=== PATIENT | male | born 1965 | race Caucasian/White ===

== ENCOUNTER 2023-04-22 09:14 | Day surgery (SDC) | payer OTHER, SELFPAY ==
[2023-04-22 09:19] VITALS: BP 190/110; PULSE 102; RESP 18; TEMP 36.6; O2SAT 96; BMI 39.1
--- NOTE | 2023-04-22 09:26 | XR_ITS ---
The [address] [address] Patient Name: KEYON JAMIL I MRN: [id number] date: 1965 Sex: M Assigned Patient Location: ER Current Patient Location: ED.MAIN Accession/Order Number: [id number] Exam Date: 04/22/2023 09:40 Report Date: 04/22/2023 10:00 At the request of: BLAYNE GATES Procedure: XR hand LT min 3V PROCEDURE: XR hand LT min 3V HISTORY: index amputation COMPARISON: None. FINDINGS: BONES:Fragmentation of the distal phalanx of the second digit and partial loss of the distal end of the middle phalanx. Numerous bone fragments scattered within remainder soft tissues. SOFT TISSUES:Partial amputation of soft tissue and bone involving tip of second digit. EFFUSION:None visible. OTHER: Negative. XR/XR hand LT min 3V IMPRESSION: 1. Partial amputation of distal end of second digits involving soft tissues, distal phalanx, and distal end of the middle phalanx. Electronically authenticated by: DEANGELO LOU Date: 04/22/2023 10:00
--- NOTE | 2023-04-22 09:45 | ED.UPPEXIN1 ---
HPI - Extremity Injury (Upper) General Chief Complaint: Extremity Injury, Upper Stated Complaint: UPPER EXTREMITY INJURY LEFT HAND Time Seen by Provider: 04/22/23 09:26 Mode of arrival: walk-in Limitations: no limitations History of Present Illness HPI narrative: The patient brought to us for a left hand injury that he sustained while using an electric table saw the patient mentioned that the table saw injury to his left index finger, he have no previous medical history but he was planned to have a physical in the next couple days The patient does not remember the last time he had a tetanus booster and his index finger shows an obvious injury Related Data Allergies Allergy/AdvReac Type Severity Reaction Status Date / Time No Known Drug Allergies Allergy Verified 04/22/23 09:18 Review of Systems ROS Status of ROS 10 or more systems reviewed and unremarkable except as noted in history and below Exam Narrative Exam Narrative: Nurses notes and vital signs reviewed and patient is not hypoxic. General: Well-appearing and in no apparent distress. Skin: Warm, dry, no pallor noted. No rash. Head: Normocephalic, atraumatic. Neck: Supple, non-tender. Eye: Pupils are equal, round and EOMI. No scleral icterus. Ears, Nose, Mouth, and Throat: TM are clear, no nasal mucosal hypertrophy. Oral mucosa is moist, no posterior oropharynx erythema, uvula is mid-line Cardiovascular: Regular Rate and Rhythm without murmur, gallop or rub. Respiratory: No accessory muscle use or respiratory distress. Lungs are clear to auscultation, no wheezing, rales or rhonchi Chest Wall: no tenderness Back: No midline thoracic or lumbar vertebral tenderness. No CVA tenderness Musculoskeletal: Left hand examination the patient have a abrasion like ulcer at the mid left index finger dorsum at mid phalanx, not deep no underlying structures exposure The patient have the index finger injury that is more extensive with the just distal to the mid middle phalanx the patient have a the area of the ulnar aspect of the index finger totally exposed with underlying structures the bone and the tendons damaged with the injury also half of the nailbed is crushed, the wound is not clean, no foreign body ,the pt has longitudinal amputation of the distal phalanx , bleeding controlled GI: Abdomen is soft, non-distended. Normal bowel sounds. No masses appreciated. No tenderness to palpation. No rebound, guarding, or rigidity noted. Neurological: A&O x4. No cranial nerve dysfunction observed. No truncal ataxia. Moves all extremities. Sensation intact. Psychiatric: Cooperative and interactive. Normal mood and affect. Constitutional Vital Signs, click to edit/add: Last Vital Signs Temp 97.9 F 04/22/23 09:19 Pulse 102 H 04/22/23 09:19 Resp 18 04/22/23 09:19 BP 190/110 H 04/22/23 09:19 Pulse Ox 96 04/22/23 09:19 O2 Del Method Room Air 04/22/23 09:19 Course Vital Signs Vital signs: Vital Signs Temperature 97.9 F 04/22/23 09:19 Pulse Rate 102 H 04/22/23 09:19 Respiratory Rate 18 04/22/23 09:19 Blood Pressure 190/110 H 04/22/23 09:19 Pulse Oximetry 96 04/22/23 09:19 Oxygen Delivery Method Room Air 04/22/23 09:19 Temperature 97.9 F 04/22/23 09:19 Pulse Rate 102 H 04/22/23 09:19 Respiratory Rate 18 04/22/23 09:19 Blood Pressure 190/110 H 04/22/23 09:19 Pulse Oximetry 96 04/22/23 09:19 Oxygen Delivery Method Room Air 04/22/23 09:19 MDM - Extremity Injury (Upper) MDM Narrative Medical decision making narrative: The patient have an IV in place IV medication for pain management morphine and Toradol as well as tetanus booster and Ancef 1 dose The patient had a nerve block with using 1% lidocaine and after that exploring the wound and the the case was discussed with the orthopedic surgeon Dr. Rodriguez The patient is planned to go to surgery he will be kept n.p.o. and pain management for the time being The patient EKG showing sinus rhythm with a heart rate of [address] elevation depression CBC and chemistry showed no acute pathology as well and the patient was noted to have elevated blood pressure in the ER and it could be right now is secondary to pain or chronic hypertension although the patient does not take any medication and he have no acute kidney injury at the moment Lab Data Labs: Lab Results 04/22/23 Range/Units 10:53 WBC 7.8 (4.0-11.0) 10^3/uL RBC 5.29 (4.70-6.10) 10^6/uL Hgb 15.2 (14.0-18.0) g/dL Hct 46.7 (42.0-54.0) % MCV 88.3 (80.0-94.0) fL MCH 28.7 (25.9-34.0) pg MCHC 32.5 (29.9-35.2) g/dL RDW 13.2 (11.0-15.0) % Plt Count 215 (150-450) 10^3/uL MPV 11.1 (9.5-13.5) fL Neut % (Auto) 76.4 H (43.0-75.0) % Lymph % (Auto) 15.5 L (20.5-60.0) % [place] % (Auto) 6.2 (1.7-12.0) % Eos % (Auto) 1.2 (0.9-7.0) % Baso % (Auto) 0.3 (0.2-2.0) % Neut # (Auto) 5.9 (1.4-6.5) 10^3/uL Lymph # (Auto) 1.2 (1.2-3.8) 10^3/uL [place] # (Auto) 0.5 (0.3-0.8) 10^3/uL Eos # (Auto) 0.1 (0.0-0.7) 10^3/uL Baso # (Auto) 0.0 (0.0-0.1) 10^3/uL Abs Immat Gran (auto) 0.03 (0.00-0.03) 10^3/uL Imm/Tot Granulo (auto) 0.4 (0.0-0.5) % Sodium 140 (136-145) mmol/L Potassium 3.9 (3.5-5.1) mmol/L Chloride 103 (98-107) mmol/L Carbon Dioxide 29.8 (21.0-32.0) mmol/L Anion Gap 11.1 BUN 18.0 (7.0-18.0) mg/dL Creatinine 0.84 (0.70-1.30) mg/dL Est GFR ( Amer) >60 (>=60) Est GFR (Non-Af Amer) >60 (>=60) BUN/Creatinine Ratio 21.4 Glucose 122 H (74-106) mg/dL Calcium 8.7 (8.5-10.1) mg/dL Total Bilirubin 0.4 (0.2-1.0) mg/dL AST 15 (15-37) U/L ALT 28 (16-63) U/L Alkaline Phosphatase 69 (46-116) U/L Total Protein 6.9 (6.4-8.2) g/dL Albumin 3.7 (3.4-5.0) g/dL Globulin 3.2 g/dL Albumin/Globulin Ratio 1.2 Discharge Plan Discharge Chief Complaint: Extremity Injury, Upper Clinical Impression: Amputation of index finger Patient Disposition: Admitted as Observation Time of Disposition Decision: 11:15 Condition: Good Discharge Date/Time: 04/22/23 10:19
[2023-04-22] MEDS: ADACEL DIPH,PERTUSS(ACELL),TET VAC/PF 0.5 ML ADULT SYRINGE IM (09:50)
[2023-04-22] MEDS: KETOROLAC TROMETHAMINE 30 MG/ML VIAL 15 MG IVP ×2 (09:51→11:25)
[2023-04-22] MEDS: LIDOCAINE HCL 1% PF 20 MG/2 ML VIAL INJ (09:52)
[2023-04-22] MEDS: MORPHINE SULFATE 4 MG/ML VIAL IV ×2 (09:52→11:25)
[2023-04-22] MEDS: CEFAZOLIN SODIUM/DEXTROSE,ISO 2 GM/50 ML PIGGYBACK IV (09:52)
[2023-04-22] MEDS: ONDANSETRON PF 4 MG/2 ML VIAL IV (09:53)
[2023-04-22 11:04] LABS: Basophils Percent Auto 0.3 % (0.2-2.0); Eosinophils Absolute Auto 0.1 10^3/uL (0.0-0.7); Eosinophils Percent Auto 1.2 % (0.9-7.0); Hematocrit 46.7 % (42.0-54.0); Hemoglobin 15.2 g/dL (14.0-18.0); Immature Granulocytes Abs Auto 0.03 10^3/uL (0.00-0.03); Immature Granulocytes Pct Auto 0.4 % (0.0-0.5); Lymphocytes Absolute Auto 1.2 10^3/uL (1.2-3.8); Lymphocytes Percent Auto 15.5 % (20.5-60.0); Mean Corpuscular HGB Conc 32.5 g/dL (29.9-35.2); Mean Corpuscular Hemoglobin 28.7 pg (25.9-34.0); Mean Corpuscular Volume 88.3 fL (80.0-94.0); Mean Platelet Volume 11.1 fL (9.5-13.5); Monocytes Absolute Auto 0.5 10^3/uL (0.3-0.8); Monocytes Percent Auto 6.2 % (1.7-12.0); Neutrophils Absolute Auto 5.9 10^3/uL (1.4-6.5); Neutrophils Percent Auto 76.4 % (43.0-75.0); Platelet Count 215 10^3/uL (150-450); Red Blood Count 5.29 10^6/uL (4.70-6.10); Red Cell Distribution Width 13.2 % (11.0-15.0); White Blood Count 7.8 10^3/uL (4.0-11.0)
[2023-04-22 11:22] LABS: Alanine Aminotransferase 28 U/L (16-63); Albumin Globulin Ratio 1.2; Albumin Level 3.7 g/dL (3.4-5.0); Alkaline Phosphatase 69 U/L (46-116); Anion Gap 11.1; Aspartate Amino Transferase 15 U/L (15-37); BUN Creatinine Ratio 21.4; Bilirubin Total 0.4 mg/dL (0.2-1.0); Calcium 8.7 mg/dL (8.5-10.1); Carbon Dioxide 29.8 mmol/L (21.0-32.0); Chloride 103 mmol/L (98-107); Estimated GFR (African America >60 (>=60); Estimated GFR (Non-African Ame >60 (>=60); Globulin 3.2 g/dL; Glucose 122 mg/dL (74-106); Potassium 3.9 mmol/L (3.5-5.1); Sodium 140 mmol/L (136-145); Total Protein 6.9 g/dL (6.4-8.2)
--- NOTE | 2023-04-22 11:35 | PC.NURSE ---
pt educated on npo status and ekg completed pt dressing to left hand reinforced
--- NOTE | 2023-04-22 11:58 | PC.NURSE ---
to OR via cart
--- NOTE | 2023-04-22 16:12 | ECG_ITS ---
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
== END 2023-04-22 11:46 ==
LOC: ER 09:50 → SURGOUT 11:47
PROVIDERS: Emergency Provider Emergency Medicine; Visit Provider Orthopaedic Surgery
DX: Z53.9 Procedure and treatment not carried out, unspecified reason (principal)
CPT/HCPCS: 36415; 73130; 80053; 85025; 90471; 90715; 93005; 96374; 96375; 96376; 99285; J2704

== ENCOUNTER 2023-04-22 12:14 | Day surgery (SDC) | payer OTHER, SELFPAY ==
[2023-04-22] VITALS (11 sets, daily range): BP systolic 134–163; BP diastolic 97–118; PULSE 96–117; RESP 0–24; TEMP 36.2; O2SAT 90–96
[2023-04-22] MEDS: BUPIVACAINE HCL 0.5% PF 50 MG/10 ML VIAL INJ (15:31)
[2023-04-22] MEDS: LACTATED RINGER'S SOLUTION 1,000 ML 50 ML IV (15:35)
--- NOTE | 2023-04-22 16:41 | PC.NURSE ---
DR. PEACE AWARE OF BP. NO NEW ORDERS RECEIVED.
--- NOTE | 2023-04-22 17:30 | PM.ORPRC ---
Procedure Note Date of procedure: 04/22/23 Pre-op diagnosis: Left index finger tip amputation Post-op diagnosis: same as pre-op Procedure: Revision amputation left index finger After informed consent was obtained the patient was brought to the operating room where general anesthetic was administered. The left arm was prepped and draped in the usual sterile fashion. 5 mL 1% lidocaine plain mixed with 5 mL half percent Marcaine plain was used for digital block of the left index finger. Finger tourniquet was placed. Wound was copiously irrigated and there was no gross contamination. The wound was explored and there was a small portion of the distal phalanx was retained. This was a thin sharp fragment and this was removed with a 15 blade. The had of the middle phalanx was also damaged by the saw and this was smoothed out with a rongeur and rasp. The skin flaps were revised using a 15 blade for fishmouth closure. The skin and soft tissue were then closed over the middle phalanx with 3-0 nylon sutures in a room interrupted simple fashion. Finger turnicot was removed. Finger was dressed. Patient was awakened and brought to the recovery room in stable condition. There were no intraoperative or immediate postoperative complications. Anesthesia: AZALIA Surgeon: Tino Rodriguez Estimated blood loss (mL): 10 Pathology: none sent Condition: stable Disposition: PACU
== END 2023-04-22 17:10 | disposition home or self-care (01) ==
PROVIDERS: Visit Provider Orthopaedic Surgery
PROC: (CPT 26236; principal; 2023-04-22 13:00)
DX: S68.121A Partial traumatic metacarpophalangeal amputation of left index finger, initial encounter (principal); W27.0XXA Contact with workbench tool, initial encounter; Z23 Encounter for immunization
CPT/HCPCS: 26236; 36415; 73130; 80053; 85025; 90471; 90715; 93005; 96374; 96375; 96376; 99285; J2704

== ENCOUNTER 2023-06-07 08:46 | Outpatient (OUT) | payer OTHER, SELFPAY ==
[2023-06-07 10:11] LABS: BUN Creatinine Ratio 26.6; Calcium 9.1 mg/dL (8.5-10.1); Chloride 102 mmol/L (98-107); Estimated GFR (African America >60 (>=60); Estimated GFR (Non-African Ame >60 (>=60); Glucose 98 mg/dL (74-106); Sodium 140 mmol/L (136-145)
[2023-06-07 10:35] LABS: Prostate Specific Antigen Scrn 3.09 ng/mL (<=4.00)
== END 2023-06-07 08:47 | disposition home or self-care (01) ==
LOC: LAB 08:47
PROVIDERS: PCP Nurse Practitioner; Visit Provider Nurse Practitioner
DX: I10 Essential (primary) hypertension (principal); N40.0 Benign prostatic hyperplasia without lower urinary tract symptoms; Z12.5 Encounter for screening for malignant neoplasm of prostate
CPT/HCPCS: 36415; 80048; G0103

== ENCOUNTER 2024-08-18 16:46 | Outpatient (OUT) | payer OTHER, SELFPAY ==
--- NOTE | 2024-08-18 | XR_ITS ---
The [place] [id number] Patient Name: KEYON JAMIL I MRN: [id number] date: 1965 Sex: M Assigned Patient Location: [employer] Current Patient Location: Accession/Order Number: [id number] Exam Date: 08/18/2024 17:02 Report Date: 08/19/2024 13:50 At the request of: WINIFRED MEDEL Procedure: XR chest 2V EXAMINATION: XR chest 2V HISTORY: Subacute cough R05.2 COMPARISON: No relevant comparison available. FINDINGS: LUNGS: Slight wall thickening of a few central bronchi. No peripheral infiltrates. VASCULATURE: No increased pulmonary vasculature. PLEURA: No pneumothorax, effusion, or pleural thickening. CARDIAC: No cardiomegaly or cardiac silhouette abnormality. MEDIASTINUM: No visible mass or adenopathy. BONES: No fracture or visible bone lesion. OTHER: Negative. XR/XR chest 2V IMPRESSION: 1. Possible mild bronchiolitis. Electronically authenticated by: DEANGELO LOU Date: 08/19/2024 13:50
== END 2024-08-18 16:47 | disposition home or self-care (01) ==
LOC: RAD 16:48
PROVIDERS: PCP Nurse Practitioner; Visit Provider Nurse Practitioner
DX: R05.2 Subacute cough (principal)
CPT/HCPCS: 71046

== ENCOUNTER 2024-09-04 06:57 | Outpatient (OUT) | payer OTHER, SELFPAY ==
--- OUTSIDE RECORDS SUMMARY | 2024-09-04 07:00 | XMS_ITS | CCD ---
Author Organization [facility] Care Team Providers Care Mirror Inspector Name Role Phone July COMMUNICATIONS ADVISOR, Brenda Unavailable Chava Horne MD Primary Care Provider [phone] BRENDA MCDOWELL Attending Unavailable BRENDA MCDOWELL Attending Unavailable BRENDA MCDOWELL Attending Unavailable BRENDA MCDOWELL Attending Unavailable BRENDA MCDOWELL Attending Unavailable BRENDA MCDOWELL Attending Unavailable Medications Current Medications Medication Drug Class(es) Dates Sig (Normalized) Sig (Original) amLODIPine 10 mg oral tablet (12 sources) Dihydropyridine Calcium Channel Holli Start: 03-09-20 24 End: 09-09-19 25 take 1 tablet by mouth once daily amLODIPine (Norvasc) 10 MG tablet Indications: Essential (primary) hypertension (CMS/HCC) Take 1 tablet (10 mg) by mouth Daily 90 tablet 1 06/11/2024 2024 Active azithromycin 250 mg oral tablet (2 sources) Macrolide Antimicrobial Start: 08-17-20 24 azithromycin (Zithromax) 250 MG tablet Indications: Upper respiratory tract infection, unspecified type 2 pills day #1, then 1 pill day #2-#5 6 tablet 08/17/2024 Active benzonatate 200 mg oral capsule (5 sources) Non-narcotic Antitussive Start: 08-04-20 24 End: 08-24-20 24 take 1 capsule by mouth every eight hours for cough benzonatate (Tessalon) 200 MG capsule Indications: Upper respiratory tract infection, unspecified type Take 1 capsule (200 mg) by mouth every 8 (eight) hours if needed for cough for up to 7 days Take with full glass of water. Do not crush or chew. 21 capsule 08/17/2024 08/24/2024 Active lisinopril 20 mg oral tablet (11 sources) Angiotensin Converting Enzyme Inhibitor Start: 03-09-20 End: 09-09-19 take 1 tablet by mouth in the morning lisinopril 20 MG tablet Indications: Primary hypertension (CMS/HCC) Take 1 tablet (20 mg) by mouth in the morning and 1 tablet (20 mg) before bedtime. 180 tablet 1 06/11/2024 2024 Active methylPREDNISolone (1 source) Corticosteroid Start: 08-19-20 End: 08-26-20 methylPREDNISolone (Medrol Dospak) 4 MG tablets Indications: Upper respiratory tract infection, unspecified type Follow schedule on package instructions 21 tablet 08/19/2024 08/26/2024 Active naproxen sodium 220 mg oral capsule (9 sources) Nonsteroidal Anti-inflammatory Drug take 1 capsule by mouth in the morning Naproxen Sodium (Aleve) 220 MG capsule Take 1 capsule by mouth in the morning and 1 capsule before bedtime. Active Completed/Discontinued Medications Medication Drug Class(es) Dates Sig (Normalized) Sig (Original) amoxicillin 875 mg / clavulanate 125 mg oral tablet (3 sources) Penicillin-class Antibacterial Start: 08-04-2024 End: 08-17-2024 take 1 tablet by mouth in the morning amoxicillin-clavul anate (Augmentin) 875-125 MG tablet Indications: Upper respiratory tract infection, unspecified type Take 1 tablet (875 mg) by mouth in the morning and 1 tablet (875 mg) before bedtime. Do all this for 10 days. 20 tablet 08/04/2024 08/17/2024 Discontinued (Therapy completed) Problems Active Problems Problem Classification Problem Date Documented Da te Episodic/Chronic Essential hypertension (16 sources) Essential hypertension; Translations: [Essential (primary) hypertension] Onset: 10-24-2023 06-08-2024 Chronic Hyperplasia of prostate (9 sources) Large prostate ; Translations: [Benign prostatic hyperplasia without lower urinary tract symptoms] Onset: 10-24-2023 10-24-2023 Chronic Other ear and sense organ disorders (6 sources) Impacted cerumen in left ear; Translations: [Impacted cerumen, left ear] Onset: 08-04-2024 08-04-2024 Episodic Other lower respiratory disease (3 sources) Cough; Translations: [Subacute cough] Onset: 08-17-2024 08-17-2024 Episodic Other nutritional; endocrine; and metabolic disorders (13 sources) Body mass index 30+ - obesity; Translations: [Obesity, unspecified] Onset: 10-24-2023 10-24-2023 Chronic Other upper respiratory infections (8 sources) Upper respiratory infection; Translations: [Acute upper respiratory infection, unspecified] Onset: 08-04-2024 08-04-2024 Episodic Past or Other Problems Problem Classification Problem Date Documented Da te Episodic/Chronic Calculus of urinary tract (9 sources) History of calculus of kidney; Translations: [Personal history of urinary calculi] Onset: 10-24-2023 10-24-2023 Episodic Disorders of teeth and jaw (9 sources) Toothache; Translations: [Other specified disorders of teeth and supporting structures] Onset: 01-23-2024 Resolved: 08-04-2024 01-23-2024 Episodic Mycoses (9 sources) Onychomycosis; Translations: [Tinea unguium] Onset: 03-09-2024 03-09-2024 Episodic Other gastrointestinal disorders (9 sources) Heartburn; Translations: [Heartburn] Onset: 10-24-2023 10-24-2023 Episodic Other screening for suspected conditions (not mental disorders or infectious disease) (11 sources) Patient encounter status; Translations: [Encounter for screening for malignant neoplasm of prostate] Onset: 01-08-2024 01-08-2024 Episodic Results Test Name Value Interpretation Reference Range Facil ity Provider Letteron 08-05-2023 Provider Letter August 05, 2023 KEYON [address]IL [address] [place] [id number] : 1965 Dear Fredy Jose, We have been trying to reach you with no success regarding a referral we received from Brenda Mcdowell. It is important that you return our call upon receiving this letter so that we can set up an appointment for you. Also, at the time of your call, please provide us with your current demographic and insurance information. Thank you for your prompt attention to this matter. Sincerely, [facility] General Surgery [phone] [facility] Physician Referralon 023 Physician Referral [phone] [id number] [facility] Vital Signs Date Time Vital Sign Value Performing Clinician Barak bejarano 08-04-2024 08:56-0500 Body mass index (BMI) [Ratio] 38.48 kg/m2 Brenda Mcdowell COMMUNICATIONS ADVISOR Work Phone: [facility] 08-04-2024 08:56-0500 Body temperature 98.49 [degF] Brenda Arenasz COMMUNICATIONS ADVISOR Work Phone: [facility] 08-04-2024 08:56-0500 Body weight 98.52 kg Brendaluis alberto Arenasz COMMUNICATIONS ADVISOR Work Phone: [facility] 08-04-2024 08:56-0500 Diastolic blood pressure 90 mm[Hg] Brenda Arenasz COMMUNICATIONS ADVISOR Work Phone: [facility] 08-04-2024 08:56-0500 Heart rate 68 /min Brendaluis alberto Arenasz COMMUNICATIONS ADVISOR Work Phone: [facility] 08-04-2024 08:56-0500 SaO2% (BldA) [Mass fraction] 97 % Brendaluis alberto Arenasz COMMUNICATIONS ADVISOR Work Phone: [facility] 08-04-2024 08:56-0500 Systolic blood pressure 138 mm[Hg] Brenda Arenasz COMMUNICATIONS ADVISOR Work Phone: [facility] 06-11-2024 15:05-0400 Body height 160 cm Brenda Arenasz COMMUNICATIONS ADVISOR Work Phone: [facility] 06-11-2024 15:05-0400 Body mass index (BMI) [Ratio] 39.57 kg/m2 Brenda Zeldaholz COMMUNICATIONS ADVISOR Work Phone: [facility] 06-11-2024 15:05-0400 Body temperature 98.71 [degF] Brenda Deepaz COMMUNICATIONS ADVISOR Work Phone: [facility] 06-11-2024 15:05-0400 Body weight 101.33 kg Brendaluis alberto Arenasz COMMUNICATIONS ADVISOR Work Phone: [facility] 06-11-2024 15:05-0400 Diastolic blood pressure 98 mm[Hg] Brenda Mcdowell COMMUNICATIONS ADVISOR Work Phone: [facility] 06-11-2024 15:05-0400 Heart rate 110 /min Brenda Mcdowell COMMUNICATIONS ADVISOR Work Phone: [facility] 06-11-2024 15:05-0400 Respiratory rate 19 /min Brenda Mcdowell COMMUNICATIONS ADVISOR Work Phone: [facility] 06-11-2024 15:05-0400 SaO2% (BldA) [Mass fraction] 95 % Brenda Arenaswong COMMUNICATIONS ADVISOR Work Phone: [facility] 06-11-2024 15:05-0400 Systolic blood pressure 132 mm[Hg] Brenda Arenaswong COMMUNICATIONS ADVISOR Work Phone: [facility] Encounters Encounter Date Encounter Type Care Provider Facility Start: 08-19-2024 End: 08-19-2024 Refill Brenda Ndiayeeron COMMUNICATIONS ADVISOR Work Phone: [facility] Comment on above: Upper respiratory tr act infection, unspecified type (Primary Dx) Start: 08-17-2024 End: 08-17-2024 Orders Only Brenda Ndiayeeron COMMUNICATIONS ADVISOR Work Phone: [facility] Comment on above: Subacute cough (Prim rizwan Dx); Upper respiratory tract infection, unspecified type Start: 08-04-2024 End: 08-04-2024 Bamboo flowsheet Brenda Ndiayeeron COMMUNICATIONS ADVISOR Work Phone: [facility] Start: 08-04-2024 End: 08-04-2024 Bamboo flowsheet Brenda Ndiayeeron COMMUNICATIONS ADVISOR Work Phone: [facility] Start: 08-04-2024 End: 08-04-2024 Office outpatient visit 15 minutes Brenda Louielindsayeron COMMUNICATIONS ADVISOR Work Phone: [facility] Comment on above: Upper respiratory tr act infection, unspecified type (Primary Dx); Primary hypertension (CMS/HCC); Obesity with body mass index (BMI) of 30.0 to 39.9; Wellness examination; Prostate cancer screening; Impacted cerumen of left ear Start: 08-04-2024 End: 08-04-2024 Patient encounter status Brenda Ndiayeeron COMMUNICATIONS ADVISOR Work Phone: [facility] Start: 08-04-2024 End: 08-04-2024 ambulatory BRENDA AICHHOLZ Not Available Start: 06-11-2024 End: 06-11-2024 ambulatory BRENDA AICHHOLZ Not Available Start: 06-11-2024 End: 06-11-2024 Office outpatient visit 15 minutes Brenda Mcdowell COMMUNICATIONS ADVISOR Work Phone: [facility] Comment on above: Primary hypertension (CMS/HCC) (Primary Dx); Obesity with body mass index (BMI) of 30.0 to 39.9; Essential (primary) hypertension (CMS/HCC) Start: 06-11-2024 End: 06-11-2024 Bamboo flowsheet Brenda Deepaz COMMUNICATIONS ADVISOR Work Phone: [facility] Start: 06-11-2024 End: 06-11-2024 Bamboo flowsheet Brenda Aichholz COMMUNICATIONS ADVISOR Work Phone: [facility] Start: 06-08-2024 End: 06-08-2024 Refill Brenda Aiclindsayholz COMMUNICATIONS ADVISOR Work Phone: [facility] Comment on above: Essential (primary) hypertension (CMS/HCC) Start: 03-09-2024 End: 03-09-2024 ambulatory BRENDA AICHHOLZ Not Available Start: 01-23-2024 End: 01-23-2024 ambulatory BRENDA AICHHOLZ Not Available Start: 12-05-2023 End: 12-05-2023 ambulatory BRENDA AICHHOLZ Not Available Start: 10-24-2023 End: 10-24-2023 ambulatory BRENDA AICHHOLZ Not Available Start: 07-19-2023 ambulatory Facility:[facility] Plan of Treatment Date Care Activity Detail Author Start: 10-24-2024 Screening for malign ant neoplasm of colon Colorectal Cancer Screening [facility] Comment on above: Postponed from 09/09 (Patient Refused) Start: 09-14-2024 End: 09-14-2024 Patient encounter procedure 09/14/2024 7:00 PM EST Office Visit [facility] [address] [place] [address] Brenda Mcdowell, COMMUNICATIONS ADVISOR [address] [place] [address] [facility] Start: 08-17-2024 End: 08-17-2025 XR Chest 2 Views XR chest 2 views Imaging Routine Subacute cough Expected: 08/17/2024 (Approximate), Expires: 08/17/2025 [facility] Work Phone: Comment on above: Expected: 08/17/2024 (Approximate), Expires: 08/17/2025 Start: 08-04-2024 End: 08-04-2025 CBC W Auto Differential panel - Blood CBC and differential Lab Routine Wellness examination Expected: 08/04/2024 (Approximate), Expires: 08/04/2025 [facility] Comment on above: Expected: 08/04/2024 (Approximate), Expires: 08/04/2025 Start: 08-04-2024 End: 08-04-2025 Comprehensive metabolic 2000 panel - Serum or Plasma Comprehensive metabolic panel Lab Routine Wellness examination Expected: 08/04/2024 (Approximate), Expires: 08/04/2025 [facility] Comment on above: Expected: 08/04/2024 (Approximate), Expires: 08/04/2025 Start: 08-04-2024 End: 08-04-2025 Lipid 1996 panel - Serum or Plasma Lipid panel Lab Routine Wellness examination Expected: 08/04/2024 (Approximate), Expires: 08/04/2025 [facility] Comment on above: Expected: 08/04/2024 (Approximate), Expires: 08/04/2025 Start: 08-04-2024 End: 08-04-2025 Microalbumin/Creatinine panel in random Urine Microalbumin / creatinine, urine ratio Lab Routine Wellness examination Expected: 08/04/2024 (Approximate), Expires: 08/04/2025 [facility] Comment on above: Expected: 08/04/2024 (Approximate), Expires: 08/04/2025 Start: 08-04-2024 End: 08-04-2025 Prostate specific Ag [Mass/volume] in Serum or Plasma PSA Lab Routine Prostate cancer screening Expected: 08/04/2024 (Approximate), Expires: 08/04/2025 [facility] Work Phone: Comment on above: Expected: 08/04/2024 (Approximate), Expires: 08/04/2025 Start: 08-04-2024 End: 08-04-2025 Urinalysis complete panel - Urine Urinalysis with reflex microscopic (clean catch) Lab Routine Wellness examination Expected: 08/04/2024 (Approximate), Expires: 08/04/2025 [facility] Comment on above: Expected: 08/04/2024 (Approximate), Expires: 08/04/2025 Start: 08-04-2024 End: 08-04-2024 Patient encounter procedure 08/04/2024 9:00 AM EST Office Visit [facility] [address] [place] [id number] Brenda Mcdowell NP [address] [place] [phone] Primary hypertension (CMS/HCC) (Primary Dx); Obesity with body mass index (BMI) of 30.0 to 39.9; Wellness examination; Prostate cancer screening [facility] Comment on above: Primary hypertension (CMS/HCC) (Primary Dx); Obesity with body mass index (BMI) of 30.0 to 39.9; Wellness examination; Prostate cancer screening Start: 06-11-2024 End: 06-11-2024 Patient encounter procedure 06/11/2024 3:00 PM EDT Office Visit [facility] [address] [place] [id number] Brenda Mcdowell NP [address] [place] [phone] [facility] Start: 1965 Screening for malign ant neoplasm of colon [facility] Payers Date Payer Category Payer Private Health Insurance [id number] 2019 Private Health Insurance [id number] 1965 Unknown [id number] 1965 Unknown [id number] [id number] 1965 Unknown [id number] 2.16.84 [id number] 1965 Unknown [id number] 2.16.84 [id number] 1965 Unknown [id number] 2.16.84 [id number] 1965 Unknown [id number] [id number] Social History Date Type Detail Facility Start: 10-24-2023 Tobacco smoking stat [facility] Never smoked tobacco [facility] Start: 10-24-2023 Tobacco use and exposure Smokeless t obacco non-user [facility] Start: 01-23-2024 End: 03-09-2024 History of Social function [facility] Start: 01-23-2024 End: 03-09-2024 Tobacco use panel [facility] Start: 1965 Sex assigned at Not on file [facility] History of Present illness Narrative 08-04-2024 Brenda Mcdowell NP - 08/04/2024 9:26 AM Daily Mcdowell NP - 08/04/2024 9:26 AM HEATHER FIORE - 08/04/2024 9:00 AM Daily Mcdowell NP - 08/04/2024 9:00 AM EST Note Date & Type Note Facility 08-04-2024 History of Presen t illness Narrative Associated Problem(s): Impacted cerumen of left ear Attempted to irrigate left ear, sm amount cerumen removed Fu appt in 09/26, debrox OTC 1 week prior to appt and will attempt again Associated Problem(s): URI (upper respiratory infection) Take atb Fill tessalon perles Fu if not better Pt states that he has had a dry cough for about two months however in the last week or so the cough has changed to more of a wet cough. In the last couple days his chest has been getting tight. Pt has been wheezing, sore throat, and drainage. Pt had an old bottle of benzonatate from when he had covid he took one last night. Images from the original note were not included. Keyon Jamil is a 58 y.o. male presents with chief complaint of Cough HPI: Cough This is a recurrent problem. The current episode started more than 1 month ago (has had for 2 months (dry), now more wet). The problem has been gradually worsening. The problem occurs constantly. The cough is Productive of purulent sputum. Associated symptoms include nasal congestion and rhinorrhea. Pertinent negatives include no chest pain, ear congestion, ear pain, hemoptysis, postnasal drip, shortness of breath, weight loss or wheezing. Nothing aggravates the symptoms. He has tried nothing for the symptoms. There is no history of environmental allergies. SUBJECTIVE: MEDICATIONS: Current Outpatient Medications Medication Instructions amLODIPine (NORVASC) 10 mg, Oral, Daily amoxicillin-clavulanate (Augmentin) 875-125 MG tablet 875 mg, Oral, 2 times daily benzonatate (TESSALON) 200 mg, Oral, Every 8 hours PRN, Take with full glass of water. Do not crush or chew. lisinopril 20 mg, Oral, 2 times daily Naproxen Sodium (Aleve) 220 MG capsule 1 capsule, 2 times daily ALLERGIES: No Known Allergies REVIEW OF SYMPTOMS: Review of Systems Constitutional: Negative for activity change, appetite change, unexpected weight change and weight loss. HENT: Positive for rhinorrhea. Negative for ear pain, nosebleeds, postnasal drip, sneezing, trouble swallowing and voice change. Eyes: Negative for pain, discharge and visual disturbance. Respiratory: Positive for cough. Negative for apnea, hemoptysis, chest tightness, shortness of breath and wheezing. Cardiovascular: Negative for chest pain and leg swelling. Gastrointestinal: Negative for abdominal distention, blood in stool, constipation and diarrhea. Genitourinary: Negative for decreased urine volume, difficulty urinating, dysuria and hematuria. Skin: Negative for color change. Neurological: Negative for dizziness, tremors and seizures. Psychiatric/Behavioral: Negative for agitation, decreased concentration, hallucinations, self-injury and suicidal ideas. The patient is not nervous/anxious. Hematological: Negative for adenopathy. Does not bruise/bleed easily. Endocrine: Negative for cold intolerance, heat intolerance, polydipsia and polyuria. Allergic/Immunologic: Negative for environmental allergies and food allergies. PAST MEDICAL HISTORY Past Medical History: Diagnosis Date Enlarged prostate 10/24/2023 Frequent urination Heartburn 10/24/2023 History of COVID-19 History of kidney stones 10/24/2023 HTN (hypertension) ([facility]) 10/24/2023 Obesity with body mass index (BMI) of 30.0 to 39.9 10/24/2023 History reviewed. No pertinent surgical history. family history includes Arthritis in his father and maternal grandmother; Diabetes in his brother, father, maternal grandmother, mother, and sister; Heart disease in his father, mother, paternal grandfather, paternal grandmother, and sister; Hypertension in his father, paternal grandfather, and paternal grandmother; Kidney disease in his mother and sister; Osteoporosis in his maternal grandmother. OBJECTIVE: Visit Vitals BP 138/90 (BP Location: Left arm, Patient Position: Sitting, BP Cuff Size: Adult long) Pulse 68 Temp 98.5 F (Temporal) Wt 217 lb 3.2 oz SpO2 97% BMI 38.48 kg/m Smoking Status Never BSA 2.09 m Physical Exam Vitals and nursing note reviewed. Constitutional: Appearance: Normal appearance. He is obese. He is not ill-appearing. HENT: Head: Normocephalic. Right Ear: Tympanic membrane, ear canal and external ear normal. Left Ear: External ear normal. Ears: Comments: Left canal: cerumen impaction, irrigated w water pick X2, small amount cerumen removed Nose: Congestion and rhinorrhea present. Mouth/Throat: Mouth: Mucous membranes are moist. Pharynx: Oropharynx is clear. No oropharyngeal exudate or posterior oropharyngeal erythema. Eyes: Extraocular Movements: Extraocular movements intact. Conjunctiva/sclera: Conjunctivae normal. Cardiovascular: Rate and Rhythm: Normal rate and regular rhythm. Pulses: Normal pulses. Heart sounds: Normal heart sounds. Pulmonary: Effort: Pulmonary effort is normal. Breath sounds: Normal breath sounds. No wheezing. Musculoskeletal: Cervical back: Neck supple. Lymphadenopathy: Cervical: No cervical adenopathy. Skin: General: Skin is warm and dry. Capillary Refill: Capillary refill takes 2 to 3 seconds. Neurological: General: No focal deficit present. Mental Status: He is alert. Psychiatric: Mood and Affect: Mood normal. Behavior: Behavior normal. Thought Content: Thought content normal. Judgment: Judgment normal. ASSESSMENT AND PLAN: Follow up in about 1 month (around 09/04/2024) for Recheck. Problem List Items Addressed This Visit HTN (hypertension) ([facility]) Please check blood pressure daily and record DASH diet Limit caffeine Take medication as directed Contact office if chest pain, pressure, dizziness, shortness of breath, swelling legs Recommend slow position changes Continue current meds Obesity with body mass index (BMI) of 30.0 to 39.9 Discussed with patient their BMI (actual, verses recommended). We have also discussed lifestyle modifications: attempts to perform physical activity as chronic conditions allow, also to monitor dietary intake: increasing protein/fruits/veggies and lowering carb intake (unless contraindicated). Limit sodas, juices, and sugary drinks. Also discussed oral medications that can be utilized for weight loss, as well as surgical options for weight loss. Prostate cancer screening Screening labs Relevant Orders PSA Wellness examination No wellness completed today, however will order yearly labs Relevant Orders CBC and differential Comprehensive metabolic panel Lipid panel Microalbumin / creatinine, urine ratio Urinalysis with reflex microscopic (clean catch) URI (upper respiratory infection) - Primary Take atb Fill tessalon perles Fu if not better Relevant Medications benzonatate (Tessalon) 200 MG capsule amoxicillin-clavulanate (Augmentin) 875-125 MG tablet Impacted cerumen of left ear Attempted to irrigate left ear, sm amount cerumen removed Fu appt in 09/26, debrox OTC 1 week prior to appt and will attempt again Associated Problem(s): Prostate cancer screening Screening labs Associated Problem(s): Wellness examination No wellness completed today, however will order yearly labs Associated Problem(s): HTN (hypertension) (CMS/HCC) Please check blood pressure daily and record DASH diet Limit caffeine Take medication as directed Contact office if chest pain, pressure, dizziness, shortness of breath, swelling legs Recommend slow position changes Continue current meds Associated Problem(s): Obesity with body mass index (BMI) of 30.0 to 39.9 Discussed with patient their BMI (actual, verses recommended). We have also discussed lifestyle modifications: attempts to perform physical activity as chronic conditions allow, also to monitor dietary intake: increasing protein/fruits/veggies and lowering carb intake (unless contraindicated). Limit sodas, juices, and sugary drinks. Also discussed oral medications that can be utilized for weight loss, as well as surgical options for weight loss. documented in this encounter [facility] Instructions 08-04-2024 Patient Instructions Note Date & Type Note Facility 08-04-2024 Instructions Brenda Mcdowell NP - 08/04/2024 9:00 AM EST Finish antibiotic, take with food Tessalon perles for cough-if not better after completed atb contact office Follow up appt in 09/26, 1 week prior to follow up appointment, please start using over the counter Debrox ear wax softener, we will try to flush ear at next visit Also need fasting labs completed documented in this encounter [facility] History of Present illness Narrative 06-11-2024 Brenda Mcdowell NP - 06/11/2024 7:23 PM EDJaymie Mcdowell NP - 06/11/2024 3:00 PM EDT Note Date & Type Note Facility 06-11-2024 History of Presen t illness Narrative Associated Problem(s): HTN (hypertension) ([facility]) Will continue current meds, recommend no missed doses Fu in 3 months Images from the original note were not included. Keyon Jamil is a 58 y.o. male presents with chief complaint of No chief complaint on file. HPI: Here today for recheck of blood pressure. He did not take last nights dose of meds or this mornings either. He forgot. Denies any chest pain/pressure, dyspnea or acute HTN symptoms. No other issues at this time SUBJECTIVE: MEDICATIONS: Current Outpatient Medications Medication Instructions amLODIPine (NORVASC) 10 mg, Oral, Daily lisinopril 20 mg, Oral, 2 times daily Naproxen Sodium (Aleve) 220 MG capsule 1 capsule, Oral, 2 times daily ALLERGIES: No Known Allergies REVIEW OF SYMPTOMS: Review of Systems Constitutional: Negative for activity change, appetite change and unexpected weight change. HENT: Negative for ear pain, nosebleeds, sneezing, trouble swallowing and voice change. Eyes: Negative for pain, discharge and visual disturbance. Respiratory: Negative for apnea, chest tightness and wheezing. Cardiovascular: Negative for leg swelling. Gastrointestinal: Negative for abdominal distention, blood in stool, constipation and diarrhea. Genitourinary: Negative for decreased urine volume, difficulty urinating, dysuria and hematuria. Skin: Negative for color change. Neurological: Negative for dizziness, tremors and seizures. Psychiatric/Behavioral: Negative for agitation, decreased concentration, hallucinations, self-injury and suicidal ideas. The patient is not nervous/anxious. Hematological: Negative for adenopathy. Does not bruise/bleed easily. Endocrine: Negative for cold intolerance, heat intolerance, polydipsia and polyuria. Allergic/Immunologic: Negative for environmental allergies and food allergies. PAST MEDICAL HISTORY Past Medical History: Diagnosis Date Enlarged prostate 10/24/2023 Frequent urination Heartburn 10/24/2023 History of COVID-19 History of kidney stones 10/24/2023 HTN (hypertension) ([facility]) 10/24/2023 Obesity with body mass index (BMI) of 30.0 to 39.9 10/24/2023 No past surgical history on file. family history includes Arthritis in his father and maternal grandmother; Diabetes in his brother, father, maternal grandmother, mother, and sister; Heart disease in his father, mother, paternal grandfather, paternal grandmother, and sister; Hypertension in his father, paternal grandfather, and paternal grandmother; Kidney disease in his mother and sister; Osteoporosis in his maternal grandmother. OBJECTIVE: Visit Vitals BP (!) 132/98 (BP Location: Left arm, Patient Position: Sitting, BP Cuff Size: Adult long) Pulse 110 Temp 98.7 F (Temporal) Resp 19 Ht 5' 3 Wt 223 lb 6.4 oz SpO2 95% BMI 39.57 kg/m Smoking Status Never BSA 2.12 m Physical Exam Vitals and nursing note reviewed. Constitutional: Appearance: Normal appearance. HENT: Head: Normocephalic. Right Ear: External ear normal. Left Ear: External ear normal. Nose: Nose normal. Mouth/Throat: Mouth: Mucous membranes are moist. Pharynx: Oropharynx is clear. Eyes: Extraocular Movements: Extraocular movements intact. Conjunctiva/sclera: Conjunctivae normal. Neck: Vascular: No carotid bruit. Cardiovascular: Rate and Rhythm: Normal rate and regular rhythm. Pulses: Normal pulses. Heart sounds: Normal heart sounds. Pulmonary: Effort: Pulmonary effort is normal. Breath sounds: Normal breath sounds. Abdominal: General: Bowel sounds are normal. Palpations: Abdomen is soft. Musculoskeletal: Cervical back: Neck supple. Skin: General: Skin is warm and dry. Capillary Refill: Capillary refill takes 2 to 3 seconds. Neurological: General: No focal deficit present. Mental Status: He is alert. Psychiatric: Mood and Affect: Mood normal. Behavior: Behavior normal. Thought Content: Thought content normal. Judgment: Judgment normal. ASSESSMENT AND PLAN: No follow-ups on file. Problem List Items Addressed This Visit HTN (hypertension) (CMS/HCC) - Primary Will continue current meds, recommend no missed doses Fu in 3 months Relevant Medications lisinopril 20 MG tablet Obesity with body mass index (BMI) of 30.0 to 39.9 Other Visit Diagnoses Essential (primary) hypertension (CMS/HCC) Relevant Medications amLODIPine (Norvasc) 10 MG tablet documented in this encounter [facility] Evaluation note Note Date & Type Note Facility Evaluation note Diagnosis Essential (primary) hypertension (CMS/HCC) Unspecified essential hypertension documented in this encounter [facility] Evaluation note Note Date & Type Note Facility Evaluation note Diagnosis Primary hypertension (CMS/HCC)- Primary Unspecified essential hypertension Obesity with body mass index (BMI) of 30.0 to 39.9 Essential (primary) hypertension (CMS/HCC) Unspecified essential hypertension documented in this encounter [facility] Healthcare Evaluation note Note Date & Type Note Facility Evaluation note Diagnosis Primary hypertension (CMS/HCC)- Primary Unspecified essential hypertension Obesity with body mass index (BMI) of 30.0 to 39.9 Primary hypertension (CMS/HCC)- Primary Unspecified essential hypertension Obesity with body mass index (BMI) of 30.0 to 39.9 Essential (primary) hypertension (CMS/HCC)- Primary Unspecified essential hypertension Morbid (severe) obesity due to excess calories (CMS/HCC) Body mass index (BMI) 39.0-39.9, adult Primary hypertension (CMS/HCC) Unspecified essential hypertension Pain, dental Obesity with body mass index (BMI) of 30.0 to 39.9 Onychomycosis Dermatophytosis of nail Primary hypertension (CMS/HCC)- Primary Unspecified essential hypertension Obesity with body mass index (BMI) of 30.0 to 39.9 Essential (primary) hypertension (CMS/HCC) Unspecified essential hypertension Upper respiratory tract infection, unspecified type- Primary Primary hypertension (CMS/HCC) Unspecified essential hypertension Obesity with body mass index (BMI) of 30.0 to 39.9 Wellness examination Prostate cancer screening Special screening for malignant neoplasm of prostate Impacted cerumen of left ear Impacted cerumen documented in this encounter [facility] Evaluation note Note Date & Type Note Facility Evaluation note Diagnosis Primary hypertension (CMS/HCC)- Primary Unspecified essential hypertension Obesity with body mass index (BMI) of 30.0 to 39.9 Primary hypertension (CMS/HCC)- Primary Unspecified essential hypertension Obesity with body mass index (BMI) of 30.0 to 39.9 Essential (primary) hypertension (CMS/HCC)- Primary Unspecified essential hypertension Morbid (severe) obesity due to excess calories (CMS/HCC) Body mass index (BMI) 39.0-39.9, adult Primary hypertension (CMS/HCC) Unspecified essential hypertension Pain, dental Obesity with body mass index (BMI) of 30.0 to 39.9 Onychomycosis Dermatophytosis of nail Primary hypertension (CMS/HCC)- Primary Unspecified essential hypertension Obesity with body mass index (BMI) of 30.0 to 39.9 Essential (primary) hypertension (CMS/HCC) Unspecified essential hypertension Upper respiratory tract infection, unspecified type- Primary Primary hypertension (CMS/HCC) Unspecified essential hypertension Obesity with body mass index (BMI) of 30.0 to 39.9 Wellness examination Prostate cancer screening Special screening for malignant neoplasm of prostate Impacted cerumen of left ear Impacted cerumen Subacute cough- Primary Upper respiratory tract infection, unspecified type documented in this encounter [facility] Evaluation note Note Date & Type Note Facility Evaluation note Diagnosis Primary hypertension (CMS/HCC)- Primary Unspecified essential hypertension Obesity with body mass index (BMI) of 30.0 to 39.9 Primary hypertension (CMS/HCC)- Primary Unspecified essential hypertension Obesity with body mass index (BMI) of 30.0 to 39.9 Essential (primary) hypertension (CMS/HCC)- Primary Unspecified essential hypertension Morbid (severe) obesity due to excess calories (CMS/HCC) Body mass index (BMI) 39.0-39.9, adult Primary hypertension (CMS/HCC) Unspecified essential hypertension Pain, dental Obesity with body mass index (BMI) of 30.0 to 39.9 Onychomycosis Dermatophytosis of nail Primary hypertension (CMS/HCC)- Primary Unspecified essential hypertension Obesity with body mass index (BMI) of 30.0 to 39.9 Essential (primary) hypertension (CMS/HCC) Unspecified essential hypertension Upper respiratory tract infection, unspecified type- Primary Primary hypertension (CMS/HCC) Unspecified essential hypertension Obesity with body mass index (BMI) of 30.0 to 39.9 Wellness examination Prostate cancer screening Special screening for malignant neoplasm of prostate Impacted cerumen of left ear Impacted cerumen Upper respiratory tract infection, unspecified type- Primary documented in this encounter [facility] Summary Purpose Family History No Family History Records FoundNo Family History Records Found Advance Directives No Advanced Directives Records FoundNo Advanced Directives Records Found Additional Source Comments (unrecognized sect ion and content) No Status Records FoundNo Status Records Found INFORMATION SOURCE (unrecogn ized section and content) DATE CREATED AUTHOR 08/06/2023 [facility] DATE CREATED AUTHOR AUTHOR'S ORGANIZ ATION 08/05/2024 [facility] EPIC Reason for Visit (unrecogniz ed section and content) Reason Comments Med Refill Reason Comments Cough Care Teams (unrecognized sec tion and content) Mirror Inspector Relationship Specialty Start Date End Date Chava Horne MD [address] [place] [address] PCP - General Family Medicine 10/21/23 Brenda Mcdowell NP [address] [place] [address] Nurse Practitioner Family Medicine 09/02/22 Mirror Inspector Relationship Specialty Start Date End Date Chava Horne MD [address] [place] [address] PCP - General Family Medicine 10/21/23 Brenda Mcdowell NP [address] [place] [address] Nurse Practitioner Family Medicine 09/02/22 Mirror Inspector Relationship Specialty Start Date End Date Chava Horne MD [address] [place] [phone] PCP - General Family Medicine 10/21/23 Brenda Mcdowell NP [address] [place] [phone] Nurse Practitioner Family Medicine 09/02/22 Mirror Inspector Relationship Specialty Start Date End Date Chava Horne MD [address] [place] [phone] PCP - General Family Medicine 10/21/23 Brenda Mcdowell NP [address] [place] [phone] Nurse Practitioner Family Medicine 09/02/22 Mirror Inspector Relationship Specialty Start Date End Date Chava Horne MD [address] [place] [phone] PCP - General Family Medicine 10/21/23 Brenda Mcdowell NP [address] [place] [address] Nurse Practitioner Family Medicine 09/02/22 Mirror Inspector Relationship Specialty Start Date End Date Chava Horne MD [address] [place] [phone] PCP - General Family Medicine 10/21/23 Brenda Mcdowell NP [address] [place] [phone] Nurse Practitioner Family Medicine 09/02/22 Mirror Inspector Relationship Specialty Start Date End Date Chava Horne MD [address] [place] [phone] PCP - General Family Medicine 10/21/23 Brenda Mcdowell NP [address] [place] [phone] Nurse Practitioner Family Medicine 09/02/22 FOR RECORDS PERTAINING TO PATIENTS WHO ARE OR HAVE BEEN ENROLLED IN A CHEMICAL DEPENDENCY/SUBSTANCEABUSE PROGRAM, SOME INFORMATION MAY BE OMITTED. This clinical summary was aggregated from multiple sources. Caution should be exercised in using it in the provision of clinical care. This summary normalizes information from multiple sources, and as a consequence, information in this document may materially change the coding, format and clinical context of patient data. In addition, data may be omitted in some cases. CLINICAL DECISIONS SHOULD BE BASED ON THE PRIMARY CLINICAL RECORDS. [employer] provides no warranty or guarantee of the accuracy or completeness of information in this document.
[2024-09-04 07:28] LABS: Basophils Absolute Auto 0.1 10^3/uL (0.0-0.1); Basophils Percent Auto 0.7 % (0.2-2.0); Eosinophils Absolute Auto 0.3 10^3/uL (0.0-0.7); Eosinophils Percent Auto 3.1 % (0.9-7.0); Hematocrit 49.2 % (42.0-54.0); Hemoglobin 16.3 g/dL (14.0-18.0); Immature Granulocytes Abs Auto 0.04 10^3/uL (0.00-0.03); Immature Granulocytes Pct Auto 0.5 % (0.0-0.5); Lymphocytes Absolute Auto 2.4 10^3/uL (1.2-3.8); Lymphocytes Percent Auto 27.6 % (20.5-60.0); Mean Corpuscular HGB Conc 33.1 g/dL (29.9-35.2); Mean Corpuscular Hemoglobin 29.1 pg (25.9-34.0); Mean Corpuscular Volume 87.7 fL (80.0-94.0); Mean Platelet Volume 11.1 fL (9.5-13.5); Monocytes Absolute Auto 0.8 10^3/uL (0.3-0.8); Monocytes Percent Auto 8.6 % (1.7-12.0); Neutrophils Absolute Auto 5.2 10^3/uL (1.4-6.5); Neutrophils Percent Auto 59.5 % (43.0-75.0); Platelet Count 248 10^3/uL (150-450); Red Blood Count 5.61 10^6/uL (4.70-6.10); Red Cell Distribution Width 13.2 % (11.0-15.0); White Blood Count 8.7 10^3/uL (4.0-11.0)
[2024-09-04 07:34] LABS: Bilirubin Urine NEGATIVE (NEGATIVE); Blood Urine NEGATIVE (NEGATIVE); Clarity Urine CLEAR (CLEAR); Color Urine LT. YELLOW (YELLOW); Glucose Urine UA NEGATIVE (NEGATIVE); Ketones Urine NEGATIVE (NEGATIVE); Leukocyte Esterase Urine NEGATIVE (NEGATIVE); Nitrite Urine NEGATIVE (NEGATIVE); Protein Urine NEGATIVE (NEG/TRACE); Urobilinogen Urine 0.2 EU/dL (0.2-1.0); pH Urine 6.5 (5.0-9.0)
[2024-09-04 07:41] LABS: Creatinine Urine Random 78.54 mg/dL (20.00-300.00); Microalbum Creatinine Ratio Ur 22.9 mg/g (0.0-29.9); Microalbumin Urine Random 1.8 mg/dL (<=30.0)
[2024-09-04 07:44] LABS: Urine Microscopic Indicated NO
[2024-09-04 07:53] LABS: Alanine Aminotransferase 29 U/L (16-63); Albumin Globulin Ratio 1.1; Albumin Level 3.7 g/dL (3.4-5.0); Alkaline Phosphatase 70 U/L (46-116); Anion Gap 10.5; Aspartate Amino Transferase 18 U/L (15-37); BUN Creatinine Ratio 17.7; Bilirubin Total 0.7 mg/dL (0.2-1.0); Carbon Dioxide 29.5 mmol/L (21.0-32.0); Chloride 105 mmol/L (98-107); Chol HDL Ratio 4.8; Cholesterol 275 mg/dL (<=200); Estimated GFR (African America >60 (>=60 mL/min/1.73m^2); Estimated GFR (Non-African Ame >60 (>=60 mL/min/1.73m^2); Globulin 3.4 g/dL; Glucose 105 mg/dL (74-106); HDL Cholesterol 57 mg/dL (40-60); Sodium 141 mmol/L (136-145); Total Protein 7.1 g/dL (6.4-8.2); Triglycerides 136 mg/dL (<=150); VLDL CHOLESTEROL 27.2 mg/dL
== END 2024-09-04 06:58 | disposition home or self-care (01) ==
LOC: LAB 06:58
PROVIDERS: PCP Nurse Practitioner; Visit Provider Nurse Practitioner
DX: Z00.00 Encounter for general adult medical examination without abnormal findings (principal); Z12.5 Encounter for screening for malignant neoplasm of prostate
CPT/HCPCS: 36415; 80053; 80061; 81003; 82043; 82570; 85025; G0103

== ENCOUNTER 2024-09-25 08:42 | Outpatient (OUT) | payer OTHER, SELFPAY ==
--- NOTE | 2024-09-25 08:49 | CA_ITS ---
Patient Name: KEYON JAMIL I MR#: [id number] : 1965 Exam Date: 09/25/2024 Ordering Doctor: CHATA Mcdowell CNP ECHOCARDIOGRAM REPORT PROCEDURE: CA ECHO DOPPLER COMPLETE INDICATIONS: HTN, BROOKS, Hyperlipidemia, family history CAD COMPARISON: None. DESCRIPTION: COMPLETE ECHOCARDIOGRAM Real-time transthoracic echocardiography with 2D, M-mode, spectral and color flow Doppler performed. QUALITY: Technical quality was adequate. LEFT VENTRICLE: Normal chamber size. Moderate concentric left ventricular hypertrophy. LV EF: Global left ventricular systolic function is normal. Visual estimation of left ventricular ejection fraction is 60-65%. No wall motion abnormalities DIASTOLIC: Diastolic function is indeterminate. ATRIAL SEPTUM: Inadequately seen LEFT ATRIUM: Normal chamber size. RIGHT ATRIUM: Normal chamber size. RIGHT VENTRICLE: Normal chamber size. Normal right ventricular systolic function. TRICUSPID VALVE: Normal mobility and thickness. No stenosis with trivial regurgitation. Mild pulmonary hypertension. RVSP 36mmHg MITRAL VALVE: Mildly thickened with normal mobility. No evidence of mitral valve stenosis. Mild mitral annular calcification. No mitral regurgitation. AORTIC VALVE: Normal trileaflet appearance. No visible sclerosis. Normal leaflet mobility. No evidence of aortic valve stenosis. No aortic regurgitation. AORTIC ROOT: Normal diameter and appearance. PULMONIC VALVE: Normal thickness and mobility. No stenosis. Trivial regurgitation. PERICARDIUM: No evidence of pericardial effusion. IVC: Collapses with inspirations. Normal size. CONCLUSION: 1. Global left ventricular systolic function is normal; visually estimated ejection fraction 60 to 65% 2. Normal right ventricular size and systolic function 3. Diastolic function is indeterminate 4. Moderate left ventricular hypertrophy 5. Mildly elevated right ventricular systolic pressure; RVSP 36 mmHg 6. No significant valvular abnormalities Adult Echocardiography Procedure Report Left Ventricle LVEDD (3.7 - 5.6 cm): 3.77 cm LVESD (2.2 - 4.0 cm): 2.64 cm LVIVS thickness (0.6 - 1.2 cm): 1.41 cm LVPW thickness (0.5 - 1.0 cm): 1.35 cm e': 0.09 m/s E - e': 5.68 LVOT Max Gradient: 2.46 mm[Hg] LVOT Area (cm2): 0.78 m/s Peak Velocity (LVOT): 0.78 m/s Mean Velocity (LVOT): 0.54 m/s LVOT Diameter 1.91 cm Left Ventricular Ejection Fraction: 65.67 % Left Atrium LA Volume Index (2D A2C): 18.90 ml/m2 Left Atrium Systolic Dimension: 3.58 cm Mitral Valve MV E to A Ratio: 0.84 Mitral Valve A-Wave Peak Velocity: 0.62 m/s Mitral Valve E-Wave Peak Velocity: 0.52 m/s Right Ventricle RV Internal Diastolic Dimension: 3.63 cm Aorta AO Root Diam: 3.64 cm Ascending Ao Diam: 3.50 cm Aortic Valve AoV Area (Peak Rohan): 1.91 cm2, 1.91 cm2 AoV Area (VTI): 2.12 cm2, 2.11 cm2 Peak Velocity(Antegrade Flow): 1.17 m/s, 1.17 m/s Peak Gradient(Antegrade Flow): 5.49 mm[Hg], 5.49 mm[Hg] Mean Velocity(Antegrade Flow): 0.69 m/s, 0.69 m/s Mean Gradient(Antegrade Flow): 2.36 mm[Hg], 2.42 mm[Hg] Velocity Time Integral: 17.73 cm, 17.66 cm Tricuspid Valve Peak Velocity (Regurgitant Flow): 1.65 m/s, 1.77 m/s, 2.85 m/s Pulmonic Valve Mean Gradient: 3.39 mm[Hg], 3.98 mm[Hg] Mean Velocity: 0.88 m/s, 0.94 m/s Peak Velocity: 1.40 m/s, 1.15 m/s Peak Gradient: 5.31 mm[Hg], 6.86 mm[Hg], 8.95 mm[Hg] Right Atrium Right Atrium Systolic Pressure: 40.12 ml, 40.12 ml Dictated by: Cayden Gonzalez M.D. on 09/25/2024 at 13:32 Approved by: Cayden Gonzalez M.D. on 09/25/2024 at 13:35
== END 2024-09-25 08:43 | disposition home or self-care (01) ==
LOC: CARD 08:42
PROVIDERS: PCP Nurse Practitioner; Visit Provider Nurse Practitioner
DX: E78.2 Mixed hyperlipidemia (principal); I10 Essential (primary) hypertension; R06.09 Other forms of dyspnea; Z82.49 Family history of ischemic heart disease and other diseases of the circulatory system
CPT/HCPCS: 93306

== ENCOUNTER 2024-10-02 16:47 | Emergency (ER) | payer OTHER, SELFPAY ==
[2024-10-02 16:50] VITALS: BP 147/96; PULSE 109; TEMP 36.6; O2SAT 96; BMI 39.7
--- OUTSIDE RECORDS SUMMARY | 2024-10-02 16:55 | XMS_ITS | CCD ---
Author Organization [facility] Care Team Providers Care Sliver Lap Tender Name Role Phone July ELEMENTARY S[employer]OL DIRECTOR, Brenda Unavailable Chava Horne MD Primary Care Provider JULY BRENDA Attending Unavailable LOUIEHVALERIEZ, BRENDA Attending Unavailable AICHHOLZ, BRENDA Attending Unavailable AICHHOLZ, BRENDA Attending Unavailable AICHHOLZ, BRENDA Attending Unavailable AICHHOLZ, BRENDA Attending Unavailable AICHHOLZ, BRENDA Attending Unavailable Medications Current Medications Medication Drug Class(es) Dates Sig (Normalized) Sig (Original) amLODIPine 10 mg oral tablet (19 sources) Dihydropyridine Calcium Channel Holli Start: 03-09-20 End: 12-14-19 take 1 tablet by mouth once daily amLODIPine (Norvasc) 10 MG tablet Indications: Essential (primary) hypertension (CMS/HCC) Take 1 tablet (10 mg) by mouth Daily 90 tablet 1 09/14/2024 12/13/2024 Active atorvastatin 20 mg oral tablet (3 sources) HMG-CoA Reductase Inhibitor Start: 09-14-19 End: 12-14-19 take 1 tablet by mouth at bedtime atorvastatin (Lipitor) 20 MG tablet Indications: Mixed hyperlipidemia (CMS/HCC) Take 1 tablet (20 mg) by mouth at bedtime 90 tablet 09/14/2024 12/13/2024 Active benzonatate 200 mg oral capsule (5 [...] 08/24/2024 Active lisinopril 20 mg oral tablet (16 sources) Angiotensin Converting Enzyme Inhibitor Start: 03-09-20 End: 09-09-19 take 1 tablet by mouth in the morning lisinopril 20 MG tablet Indications: Primary hypertension (CMS/HCC) Take 1 tablet (20 mg) by mouth in the morning and 1 tablet (20 mg) before bedtime. 180 tablet 1 06/11/2024 Active methylPREDNISolone (1 source) Corticosteroid Start: 08-19-20 End: 08-26-20 methylPREDNISolone (Medrol Dospak) 4 MG tablets Indications: Upper respiratory tract infection, unspecified type Follow schedule on package instructions 21 tablet 08/19/2024 08/26/2024 Active naproxen sodium 220 mg oral capsule (14 sources) Nonsteroidal Anti-inflammatory Drug take 1 capsule [...] 20 tablet 08/04/2024 08/17/2024 Discontinued (Therapy completed) azithromycin 250 mg oral tablet (5 sources) Macrolide Antimicrobial Start: 08-17-2024 End: 09-14-2024 azithromycin (Zithromax) 250 MG tablet Indications: Upper respiratory tract infection, unspecified type 2 pills day #1, then 1 pill day #2-#5 6 tablet 08/17/2024 09/14/2024 Discontinued (Therapy completed) Problems Active Problems Problem Classification Problem Date Documented Da te Episodic/Chronic Disorders of lipid metabolism (8 sources) Mixed hyperlipidemia; Translations: [Mixed hyperlipidemia] Onset: 09-04-2024 09-04-2024 Chronic Essential hypertension (20 sources) Essential hypertension; Translations: [Essential (primary) hypertension] Onset: 10-24-2023 06-08-2024 Chronic Hyperplasia of prostate (14 sources) Large prostate ; Translations: [Benign prostatic hyperplasia without lower urinary tract symptoms] Onset: 10-24-2023 10-24-2023 Chronic Other and ill-defined heart disease (3 sources) Left ventricular hypertrophy; Translations: [Cardiomegaly] Onset: 09-25-2024 09-30-2024 Chronic Other ear and sense organ disorders (13 sources) Impacted cerumen in left ear; Translations: [Impacted cerumen, left ear] Onset: 08-04-2024 08-04-2024 Episodic Other lower respiratory disease (10 sources) Cough; Translations: [Subacute cough] Onset: 08-17-2024 08-17-2024 Episodic Other lower respiratory disease (9 sources) Dyspnea on exertion; Translations: [Other forms of dyspnea] Onset: 09-14-2024 09-14-2024 Episodic Other nutritional; endocrine; and metabolic disorders (20 sources) Body mass index 30+ - obesity; Translations: [Obesity, unspecified] Onset: 10-24-2023 10-24-2023 Chronic Other nutritional; endocrine; and metabolic disorders (6 sources) Obesity caused by energy imbalance; Translations: [Morbid (severe) obesity due to excess calories] Onset: 09-14-2024 09-14-2024 Chronic Other upper respiratory infections (13 sources) Upper respiratory infection; Translations: [Acute upper respiratory infection, unspecified] Onset: 08-04-2024 08-04-2024 Episodic Pulmonary heart disease (3 sources) Pulmonary arterial hypertension; Translations: [Secondary pulmonary arterial hypertension] Onset: 09-25-2024 09-30-2024 Chronic Residual codes; unclassified (9 sources) Family history of coronary arteriosclerosis; Translations: [Family history of ischemic heart disease and other diseases of the circulatory system] Onset: 09-14-2024 09-14-2024 Episodic Past or Other Problems Problem Classification Problem Date Documented Da te Episodic/Chronic Calculus of urinary tract (14 sources) History of calculus of kidney; Translations: [Personal history of urinary calculi] Onset: 10-24-2023 10-24-2023 Episodic Cardiac and circulatory congenital anomalies (1 source) Congenital hypoplasia of pulmonary artery; 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] Onset: 09-25-2024 Resolved: 09-25-2024 09-25-2024 Chronic Disorders of teeth and jaw (14 sources) Toothache; Translations: [Other specified disorders of teeth and supporting structures] Onset: 01-23-2024 Resolved: 08-04-2024 01-23-2024 Episodic Mycoses (14 sources) Onychomycosis; Translations: [Tinea unguium] Onset: 03-09-2024 03-09-2024 Episodic Other gastrointestinal disorders (14 sources) Heartburn; Translations: [Heartburn] Onset: 10-24-2023 10-24-2023 Episodic Other screening for suspected conditions (not mental disorders or infectious disease) (16 sources) Patient encounter status; Translations: [Encounter for screening for malignant neoplasm of prostate] Onset: 01-08-2024 01-08-2024 Episodic Results Test Name Value Interpretation Reference Range Facility ALL CBC WITH AUTO DIFFon BASOPHILS ABSOLUTE AUTO 0.1 [facility] Basophils/100 WBC (Bld) 0.7 % 0.2 - 2.0 % [facility] Eosinophils/100 WBC (Bld) 3.1 % 0.9 - 7.0 % [facility] Erythrocyte distribution width (RBC) [Ratio] 13.2 % 11.0 - 15.0 % [facility] Hematocrit (Bld) [Volume fraction] 49.2 % 42.0 - 54.0 % [facility] Hemoglobin (Bld) [Mass/Vol] 16.3 g/dL 14.0 - 18.0 g/dL [facility] IMMATURE GRANULOCYTES ABS AUTO 0.04 High [facility] Immature granulocytes/100 WBC (Bld) 0.5 % 0.0 - 0.5 % [facility] Interpretation and review of laboratory results Abnormal [facility] LYMPHOCYTES ABSOLUTE AUTO 2.4 [facility] Lymphocytes/100 WBC (Bld) 27.6 % 20.5 - 60.0 % [facility] MCH (RBC) [Entitic mass] 29.1 pg 25.9 - 34.0 pg [facility] MCHC (RBC) [Mass/Vol] 33.1 g/dL 29.9 - 35.2 g/dL [facility] MCV (RBC) [Entitic vol] 87.7 fL 80.0 - 94.0 fL [facility] MONOCYTES ABSOLUTE AUTO 0.8 [facility] Monocytes/100 WBC (Bld) 8.6 % 1.7 - 12.0 % [facility] NEUTROPHILS ABSOLUTE AUTO 5.2 [facility] Neutrophils/100 WBC (Bld) 59.5 % 43.0 - 75.0 % [facility] Platelet mean volume (Bld) [Entitic vol] 11.1 fL 9.5 - 13.5 fL [facility] EO # 0.3 [facility] PLT 248 [facility] RBC 5.61 [facility] WBC 8.7 [facility] MICROALB CREAT RATIO RAN DOMon 09-04-2024 CREATININE URINE RANDOM 78.54 mg/dL 20.00 - 300.00 mg/dL [facility] MICROALBUM CREATININE RATIO UR 22.9 mg/g 0.0 - 29.9 mg/g [facility] Comment on above: NO MICROALBUMINURIA 0-29 MG/G CLINICAL MICROALBUMINURIA 30-300 MG/G MACROALBUMINURIA >300 MG/G MICROALBUMIN URINE RANDOM 1.8 mg/dL NINF - 30.0 mg/dL [facility] Provider Letteron 08-05-2023 Provider Letter August 05, 2023 KEYON AREVALOFORD [address] [place] [id number] : 1965 Dear Mr. Jamil, We have been trying to reach you [...] your prompt attention to this matter. Sincerely, [facility] [phone] Normal [facility] Physician Referralon 023 Physician Referral [phone] [id number] Normal [facility] Vital Signs Date Time Vital Sign Value Performing Clinician Barak bejarano 09-14-2024 18:42-0500 Body mass index (BMI) [Ratio] 41.42 kg/m2 Brendaluis alberto Ndiayeholz [employer] S[employer] DIRECTOR Work Phone: [facility] 09-14-2024 18:42-0500 Body temperature 98.8 [degF] Brenda Zeldaholz ELEMENTARY SCHO[employer] DIRECTOR Work Phone: [facility] 09-14-2024 18:42-0500 Body weight 106.05 kg Brenda Zeldaholz ELEMENTARY SCHOOL DIRECTOR Work Phone: [facility] 09-14-2024 18:42-0500 Diastolic blood pressure 96 mm[Hg] Brenda Zeldaholz ELEMENTARY SCHOOL DIRECTOR Work Phone: [facility] 09-14-2024 18:42-0500 Heart rate 100 /min Brenda Zeldaholz ELEMENTARY SCHOOL DIRECTOR Work Phone: [facility] 09-14-2024 18:42-0500 Respiratory rate 20 /min Brenda Zeldaholz ELEMENTARY SCHOOL DIRECTOR Work Phone: [facility] 09-14-2024 18:42-0500 SaO2% (BldA) [Mass fraction] 94 % Brenda Zeldaholz ELEMENTARY SCHOOL DIRECTOR Work Phone: [facility] 09-14-2024 18:42-0500 Systolic blood pressure 130 mm[Hg] Brenda Zeldaholz ELEMENTARY SCHOOL DIRECTOR Work Phone: [facility] 08-04-2024 08:56-0500 Body mass index (BMI) [Ratio] 38.48 kg/m2 Brenda Zeldaholz ELEMENTARY SCHOOL DIRECTOR Work Phone: [facility] 08-04-2024 08:56-0500 Body temperature 98.49 [degF] Brenda Zeldaholz ELEMENTARY SCHOOL DIRECTOR Work Phone: [facility] 08-04-2024 08:56-0500 Body weight 98.52 kg Brenda Zeldaholz ELEMENTARY SCHOOL DIRECTOR Work Phone: [facility] 08-04-2024 08:56-0500 Diastolic blood pressure 90 mm[Hg] Brenda Zeldaholz ELEMENTARY SCHOOL DIRECTOR Work Phone: [facility] 08-04-2024 08:56-0500 Heart rate 68 /min Brenda Louiehholz ELEMENTARY SCHOOL DIRECTOR Work Phone: [facility] 08-04-2024 08:56-0500 SaO2% (BldA) [Mass fraction] 97 % Brenda Aichholz ELEMENTARY SCHOOL DIRECTOR Work Phone: [facility] 08-04-2024 08:56-0500 Systolic blood pressure 138 mm[Hg] Brenda Aichholz ELEMENTARY SCHOOL DIRECTOR Work Phone: [facility] 06-11-2024 15:05-0400 Body height 160 cm Brenda Aichholz ELEMENTARY SCHOOL DIRECTOR Work Phone: [facility] 06-11-2024 15:05-0400 Body mass index (BMI) [Ratio] 39.57 kg/m2 Brenda Aichholz ELEMENTARY SCHO[employer] DIRECTOR Work Phone: [facility] 06-11-2024 15:05-0400 Body temperature 98.71 [degF] Brenda Aichholz ELEMENTARY SCHOOL DIRECTOR Work Phone: [facility] 06-11-2024 15:05-0400 Body weight 101.33 kg Brenda Aichholz ELEMENTARY SCHOOL DIRECTOR Work Phone: [facility] 06-11-2024 15:05-0400 Diastolic blood pressure 98 mm[Hg] Brenda Aichholz ELEMENTARY SCHOOL DIRECTOR Work Phone: [facility] 06-11-2024 15:05-0400 Heart rate 110 /min Brenda Aichholz ELEMENTARY SCHOOL DIRECTOR Work Phone: [facility] 06-11-2024 15:05-0400 Respiratory rate 19 /min Brenda Aichholz ELEMENTARY SCHOOL DIRECTOR Work Phone: [facility] 06-11-2024 15:05-0400 SaO2% (BldA) [Mass fraction] 95 % Brenda Aichholz ELEMENTARY SCHOOL DIRECTOR Work Phone: [facility] 06-11-2024 15:05-0400 Systolic blood pressure 132 mm[Hg] Brenda Aichholz ELEMENTARY SCHOOL DIRECTOR Work Phone: [facility] Encounters Encounter Date Encounter Type Care Provider Facility Start: 09-30-2024 End: 09-30-2024 Orders Only Brenda Mcdowell [employer] S[employer] DIRECTOR Work Phone: [facility] Comment on above: Dyspnea on exertion (Primary Dx); LVH (left ventricular hypertrophy); Primary hypertension (CMS/HCC); Pulmonary artery hypertension (CMS/HCC); Family history of coronary artery disease Start: 09-14-2024 End: 09-14-2024 Office outpatient visit 25 minutes Brenda Mcdowell [employer]LE[employer] S[employer] DIRECTOR Work Phone: [facility] Comment on above: Primary hypertension (CMS/HCC) (Primary Dx); Morbid (severe) obesity due to excess calories (CMS/HCC); Mixed hyperlipidemia (CMS/HCC); Body mass index (BMI) 39.0-39.9, adult; Essential (primary) hypertension (CMS/HCC); Subacute cough; Dyspnea on exertion; Family history of coronary artery disease; Impacted cerumen of left ear Start: 09-14-2024 End: 09-14-2024 ambulatory BRENDA MCDOWELL Not Available Start: 09-14-2024 End: 09-14-2024 Bamboo flowsheet Brenda Mcdowell ELE[employer] S[employer] DIRECTOR Work Phone: [facility] Start: 09-14-2024 End: 09-14-2024 Bamboo flowsheet Brenda Mcdowell ELEMENTARY SCHOOL DIRECTOR Work Phone: [facility] Start: 09-04-2024 End: 09-04-2024 [facility] Result Encounter Brenda Mcdowell ELE[employer] S[employer] DIRECTOR Work Phone: [facility] External Department Unsolicited Start: 09-04-2024 End: 09-04-2024 [facility] Result Encounter Brenda Mcdowell ELEMENTARY SCHO[employer] DIRECTOR Work Phone: [facility] External Department Unsolicited Start: 08-19-2024 End: 08-19-2024 Refill Brenda Mcdowell ELEMENTARY SCHOOL DIRECTOR Work Phone: [facility] Comment on above: Upper respiratory tr act infection, unspecified type (Primary Dx) Start: 08-17-2024 End: 08-17-2024 Orders Only Brenda Mcdowell ELE[employer] S[employer] DIRECTOR Work Phone: [facility] Comment on above: Subacute cough (Prim rizwan Dx); Upper respiratory tract infection, unspecified type Start: 08-04-2024 End: 08-04-2024 Bamboo flowsheet Brenda Mcdowell ELEMENTARY SCHOOL DIRECTOR Work Phone: [facility] Start: 08-04-2024 End: 08-04-2024 Bamboo flowsheet Brenda Mcdowell ELEMENTARY SCHOOL DIRECTOR Work Phone: [facility] Start: 08-04-2024 End: 08-04-2024 Office outpatient visit 15 minutes Brenda Mcdowell ELEMENTARY SCHOOL DIRECTOR Work Phone: [facility] Comment on above: Upper respiratory tr act infection, unspecified type (Primary Dx); Primary hypertension (CMS/HCC); Obesity with body mass index (BMI) of 30.0 to 39.9; Wellness examination; Prostate cancer screening; Impacted cerumen of left ear Start: 08-04-2024 End: 08-04-2024 Patient encounter status Brenda July ELE[employer] S[employer] DIRECTOR Work Phone: [facility] Start: 08-04-2024 End: 08-04-2024 ambulatory BRENDA ZELDAHOLZ Not Available Start: 06-11-2024 End: 06-11-2024 ambulatory BRENDA LOUIEHHOLZ Not Available Start: 06-11-2024 End: 06-11-2024 Office outpatient visit 15 minutes Brenda Mcdowell E[employer] S[employer] DIRECTOR Work Phone: [facility] Comment on above: Primary hypertension (CMS/HCC) (Primary Dx); Obesity with body mass index (BMI) of 30.0 to 39.9; Essential (primary) hypertension (CMS/HCC) Start: 06-11-2024 End: 06-11-2024 Bamboo flowsheet Brenda Mcdowell ELE[employer] SCHO[employer] DIRECTOR Work Phone: [facility] Start: 06-11-2024 End: 06-11-2024 Bamboo flowsheet Brenda Mcdowell ELEMENTARY SCHOOL DIRECTOR Work Phone: [facility] Start: 06-08-2024 End: 06-08-2024 Refill Brenda Mcdowell ELEMENTARY SCHOOL DIRECTOR Work Phone: [facility] Comment on above: Essential (primary) hypertension (CMS/HCC) Start: 03-09-2024 End: 03-09-2024 ambulatory BRENDA AICBobHOLZ Not Available Start: 01-23-2024 End: 01-23-2024 ambulatory BRENDA AICHHOLZ Not Available Start: 12-05-2023 End: 12-05-2023 ambulatory BRENDA AICHHOLZ Not Available Start: 10-24-2023 End: 10-24-2023 ambulatory BRENDA AICBobHOLZ Not Available Start: 07-19-2023 ambulatory Facility:[facility] Procedures Date Procedure Procedure Detail Performing Clinician Start: 09-04-2024 ALL CBC WITH AUTO DIFF Brenda Mcdowell E[employer] S[employer] DIRECTOR Work Phone: Start: 09-04-2024 [facility] MICROALB CREAT R ATIO RANDOM Brenda Mcdowell ELE[employer] S[employer] DIRECTOR Work Phone: Plan of Treatment Date Care Activity Detail Author Start: 10-26-2024 End: 10-26-2024 Patient encounter procedure 10/26/2024 7:00 PM EST Office Visit [facility] [address] [place] [phone] Brenda Mcdowell NP [address] [place] [phone] [facility] Start: 10-24-2024 Screening for malign ant neoplasm of colon Colorectal Cancer Screening [facility] Comment on above: Postponed from 09/09 (Patient Refused) Start: 09-30-2024 End: 09-30-2025 SPECT Heart perfusion NM heart perfusion SPECT stress and rest Imaging Routine Dyspnea on exertion LVH (left ventricular hypertrophy) Primary hypertension (CMS/HCC) Pulmonary artery hypertension (CMS/HCC) Family history of coronary artery disease Expected: 09/30/2024 (Approximate), Expires: 09/30/2025 [facility] Work Phone: Comment on above: Expected: 09/30/2024 (Approximate), Expires: 09/30/2025 Start: 09-14-2024 End: 09-14-2024 Patient encounter procedure [facility] Comment on above: Primary hypertension (CMS/HCC) (Primary Dx); Morbid (severe) obesity due to excess calories (CMS/HCC); Mixed hyperlipidemia (CMS/HCC); Body mass index (BMI) 39.0-39.9, adult Start: 09-14-2024 End: 09-14-2026 Echocardiogram 2D complete Echocardiogram 2D complete Echocardiography High Priority Mixed hyperlipidemia (CMS/HCC) Essential (primary) hypertension (CMS/HCC) Dyspnea on exertion Family history of coronary artery disease Expected: 09/14/2024 (Approximate), Expires: 09/14/2026 [facility] Work Phone: Comment on above: Expected: 09/14/2024 (Approximate), Expires: 09/14/2026 Start: 08-17-2024 End: 08-17-2025 XR Chest 2 Views XR chest 2 views Imaging Routine Subacute cough Expected: 08/17/2024 (Approximate), Expires: 08/17/2025 [facility] [employer] Work Phone: Comment on above: Expected: 08/17/2024 (Approximate), Expires: 08/17/2025 Start: 08-04-2024 End: 08-04-2025 CBC W Auto Differential panel - Blood CBC and differential Lab Routine Wellness examination Expected: 08/04/2024 (Approximate), Expires: 08/04/2025 [facility] Comment on above: Expected: 08/04/2024 (Approximate), Expires: 08/04/2025 Start: 08-04-2024 End: 08-04-2025 Comprehensive metabolic 2000 panel - Serum or Plasma Comprehensive metabolic panel Lab Routine Wellness examination Expected: 08/04/2024 (Approximate), Expires: 08/04/2025 [facility] Comment on above: Expected: 08/04/2024 (Approximate), Expires: 08/04/2025 Start: 08-04-2024 End: 08-04-2025 Lipid 1996 panel - Serum or Plasma Lipid panel Lab Routine Wellness examination Expected: 08/04/2024 (Approximate), Expires: 08/04/2025 [facility] Comment on above: Expected: 08/04/2024 (Approximate), Expires: 08/04/2025 Start: 08-04-2024 End: 08-04-2025 Microalbumin/Creatinine panel in random Urine Microalbumin / creatinine, urine ratio Lab Routine Wellness examination Expected: 08/04/2024 (Approximate), Expires: 08/04/2025 [facility] Comment on above: Expected: 08/04/2024 (Approximate), Expires: 08/04/2025 Start: 08-04-2024 End: 08-04-2025 Prostate specific Ag [Mass/volume] in Serum or Plasma PSA Lab Routine Prostate cancer screening Expected: 08/04/2024 (Approximate), Expires: 08/04/2025 [facility] Work Phone: Comment on above: Expected: 08/04/2024 (Approximate), Expires: 08/04/2025 Start: 08-04-2024 End: 08-04-2025 Urinalysis complete panel - Urine Urinalysis with reflex microscopic (clean catch) Lab Routine Wellness examination Expected: 08/04/2024 (Approximate), Expires: 08/04/2025 [facility] Comment on above: Expected: 08/04/2024 (Approximate), Expires: 08/04/2025 Start: 08-04-2024 End: 08-04-2024 Patient encounter procedure 08/04/2024 9:00 AM EST Office Visit [facility] [address] [place] [address] Brenda Mcdowell NP [address] [place] [phone] Primary hypertension (CMS/HCC) (Primary Dx); Obesity with body mass index (BMI) of 30.0 to 39.9; Wellness examination; Prostate cancer screening [facility] Comment on above: Primary hypertension (CMS/HCC) (Primary Dx); Obesity with body mass index (BMI) of 30.0 to 39.9; Wellness examination; Prostate cancer screening Start: 06-11-2024 End: 06-11-2024 Patient encounter procedure 06/11/2024 3:00 PM EDT Office Visit [facility] [address] [place] [address] Brenda Mcdowell, JULISSA [address] [place] [phone] [facility] Start: 1965 Screening for malign ant neoplasm of colon [facility] Payers Date Payer Category Payer Private Health Insurance [id number] 2019 Private Health Insurance [id number] 1965 Unknown [id number] [id number] 1965 Unknown [id number] 2.16.84 [id number] 1965 Unknown [id number] 2.16.84 [id number] 1965 Unknown [id number] 2.16.84 [id number] 1965 Unknown [id number] 2.16.84 [id number] 1965 Unknown [id number] 2.16.84 [id number] 1965 Unknown [id number] [id number] Social History Date Type Detail Facility Start: 10-24-2023 Tobacco smoking stat [facility] Never smoked tobacco [facility] Start: 10-24-2023 Tobacco use and exposure Smokeless t obacco non-user [facility] Start: 01-23-2024 End: 03-09-2024 History of Social function [facility] Start: 01-23-2024 End: 03-09-2024 Tobacco use panel [facility] Start: 1965 Sex assigned at Not on file [facility] Clinical Notes 06-11-2024 to 09-14-2024 Brenda Mcdowell NP - 09/14/2024 7:44 PM Daily Mcdowell, JULISSA - 09/14/2024 7:41 PM Daily Mcdowell NP - 09/14/2024 7:41 PM Daily Mcdowell NP - 09/14/2024 7:40 PM ESTPatient Instructions Note Date & Type Note Facility 09-14-2024 History of Presen t illness Narrative Associated Problem(s): Impacted cerumen of left ear Resolved after irrigation Tolerated well Associated Problem(s): Dyspnea on exertion Strongly suspect possible underlying CAD Check echo Associated Problem(s): Mixed hyperlipidemia (CMS/HCC) Strong family hx CAD Will start atorvastatin 20mg daily Recheck labs in 6-8 weeks Advised of side effects to monitor for Associated Problem(s): Subacute cough Differentials: GERD, PND, Ricardo inhibitor However also reports that this usually happens ever winter and hangs on til spring No asthma, very brief time smoking Will trial 3 weeks of zyrtec, if not better 3 weeks of omeprazole Fu in 4 weeks If still not better consider CT chest Pt is taking prostate health with beta sitosterol 125mg BID just refilled his last norvasc 10mg Images from the original note were not included. Keyon Jamil is a 59 y.o. male presents with chief complaint of Hypertension HPI: Here for earwax irrigation, and used debrox as directed Hypertension This is a chronic problem. The current episode started more than 1 year ago. The problem is unchanged. The problem is controlled. Associated symptoms include malaise/fatigue and shortness of breath. Pertinent negatives include no blurred vision, chest pain, neck pain or palpitations. There are no associated agents to hypertension. Risk factors for coronary artery disease include dyslipidemia, family history, male gender, obesity and sedentary lifestyle. Past treatments include calcium channel blockers and RICARDO inhibitors. The current treatment provides moderate improvement. There are no compliance problems. There is no history of CAD/FL, heart failure or PVD. SUBJECTIVE: MEDICATIONS: Current Outpatient Medications Medication Instructions amLODIPine (NORVASC) 10 mg, Oral, Daily atorvastatin (LIPITOR) 20 mg, Oral, Nightly lisinopril 20 mg, Oral, 2 times daily Naproxen Sodium (Aleve) 220 MG capsule 1 capsule, 2 times daily ALLERGIES: No Known Allergies REVIEW OF SYMPTOMS: Review of Systems Constitutional: Positive for malaise/fatigue. Negative for activity change, appetite change and unexpected weight change. HENT: Negative for ear pain, nosebleeds, sneezing, trouble swallowing and voice change. Eyes: Negative for blurred vision, pain, discharge and visual disturbance. Respiratory: Positive for shortness of breath. Negative for apnea, chest tightness and wheezing. Cardiovascular: Negative for chest pain, palpitations and leg swelling. Gastrointestinal: Negative for abdominal distention, blood in stool, constipation and diarrhea. Genitourinary: Positive for frequency. Negative for decreased urine volume, difficulty urinating, dysuria and hematuria. Musculoskeletal: Negative for neck pain. Skin: Negative for color change. Neurological: Negative [...] History of kidney stones 10/24/2023 HTN (hypertension) ([facility]) 10/24/2023 Obesity with body mass index (BMI) [...] maternal grandmother. OBJECTIVE: Visit Vitals BP (!) 130/96 (BP Location: Left arm, Patient Position: Sitting, BP Cuff Size: Large adult) Pulse 100 Temp 98.8 F (Temporal) Resp 20 Wt 233 lb 12.8 oz SpO2 94% BMI 41.42 kg/m Smoking Status Never BSA 2.17 m Physical Exam Vitals and nursing note reviewed. Constitutional: Appearance: Normal appearance. HENT: Head: Normocephalic. Right Ear: Tympanic membrane, ear canal and external ear normal. Left Ear: External ear normal. Ears: Comments: Left canal irrigated and large amount soft rogers cerumen flushed out Tolerated well, TM intact no s/s infection Nose: Nose normal. No congestion or rhinorrhea. Mouth/Throat: Mouth: Mucous membranes are moist. Pharynx: Oropharynx is clear. No oropharyngeal exudate or posterior oropharyngeal erythema. Eyes: Extraocular Movements: Extraocular movements intact. Conjunctiva/sclera: Conjunctivae normal. Cardiovascular: Rate and Rhythm: Normal rate and regular rhythm. Pulses: Normal pulses. Heart sounds: Normal heart sounds. Pulmonary: Effort: Pulmonary effort is normal. Breath sounds: Normal breath sounds. No wheezing or rales. Abdominal: General: Bowel sounds are normal. Palpations: Abdomen is soft. Musculoskeletal: Cervical back: Neck supple. Right lower leg: No edema. Left lower leg: No edema. Lymphadenopathy: Cervical: No cervical adenopathy. Skin: General: Skin is warm and dry. Capillary Refill: Capillary refill takes 2 to 3 seconds. Neurological: General: No focal deficit present. Mental Status: He is alert. Psychiatric: Mood and Affect: Mood normal. Behavior: Behavior normal. Thought Content: Thought content normal. Judgment: Judgment normal. ASSESSMENT AND PLAN: Follow up in about 6 weeks (around 10/26/2024) for Recheck. Problem List Items Addressed This Visit HTN (hypertension) (CMS/HCC) - Primary Please check blood pressure daily and record DASH diet Limit caffeine Take medication as directed Contact office if chest pain, pressure, dizziness, shortness of breath, swelling legs Recommend slow position changes Continue current meds: lisinopril, amlodipine Add asa Body mass index (BMI) 39.0-39.9, adult Impacted cerumen of left ear Resolved after irrigation Tolerated well Subacute cough Differentials: GERD, PND, Ricardo inhibitor However also reports that this usually happens ever winter and hangs on til spring No asthma, very brief time smoking Will trial 3 weeks of zyrtec, if not better 3 weeks of omeprazole Fu in 4 weeks If still not better consider CT chest Mixed hyperlipidemia (CMS/HCC) Strong family hx CAD Will start atorvastatin 20mg daily Recheck labs in 6-8 weeks Advised of side effects to monitor for Relevant Medications atorvastatin (Lipitor) 20 MG tablet Other Relevant Orders Echocardiogram 2D complete Morbid (severe) obesity due to excess calories (CMS/HCC) Discussed with patient their BMI (actual, verses recommended). We have also discussed lifestyle modifications: attempts to perform physical activity as chronic conditions allow, also to monitor dietary intake: increasing protein/fruits/veggies and lowering carb intake (unless contraindicated). Limit sodas, juices, and sugary drinks. . Dyspnea on exertion Strongly suspect possible underlying CAD Check echo Relevant Orders Echocardiogram 2D complete Family history of coronary artery disease Relevant Orders Echocardiogram 2D complete Other Visit Diagnoses Essential (primary) hypertension (CMS/HCC) Relevant Medications amLODIPine (Norvasc) 10 MG tablet Other Relevant Orders Echocardiogram 2D complete Associated Problem(s): Morbid (severe) obesity due to excess calories (CMS/HCC) Discussed with patient their BMI (actual, verses recommended). We have also discussed lifestyle modifications: attempts to perform physical activity as chronic conditions allow, also to monitor dietary intake: increasing protein/fruits/veggies and lowering carb intake (unless contraindicated). Limit sodas, juices, and sugary drinks. . Associated Problem(s): HTN (hypertension) (CMS/[facility]) Please check blood pressure daily and record DASH diet Limit caffeine Take medication as directed Contact office if chest pain, pressure, dizziness, shortness of breath, swelling legs Recommend slow position changes Continue current meds: lisinopril, amlodipine Add asa documented in this encounter [facility] 09-14-2024 Instructions Brenda Mcdowell NP - 09/14/2024 7:00 PM EST Cough: Trial 3 weeks of cetirizine (zyrtec) 10mg daily, if cough not better, then stop this and trial 3 weeks of omeprazole (prilosec) 20mg daily Heart: ECHO (US of heart) will get approved with insurance and do at [facility] Cholesterol pill: atoravastatin ( lipitor) 20mg daily (take in the evening) if severe abd pain, yellowing of the skin muscle pain call me Add baby aspirin 81mg daily documented in this encounter [facility] 08-04-2024 History of Presen t illness Narrative [...] History of kidney stones 10/24/2023 HTN (hypertension) ([facility]) 10/24/2023 Obesity with body mass index (BMI) [...] List Items Addressed This Visit HTN (hypertension) (CMS/[facility]) Please check blood pressure daily and record [...] for weight loss. documented in this encounter [facility] 08-04-2024 Instructions Brenda Mcdowell NP - 08/04/2024 [...] fasting labs completed documented in this encounter [facility] 10-10-2024 History of Presen t illness Narrative Associated Problem(s): HTN (hypertension) (CMS/HCC) Will continue current meds, recommend no missed [...] History of kidney stones 10/24/2023 HTN (hypertension) (CMS/HCC) 10/24/2023 Obesity with body mass index (BMI) [...] 10 MG tablet documented in this encounter [facility] Healthcare Evaluation note Diagnosis Essential (primary) hypertension (CMS/HCC) Unspecified essential hypertension documented in this encounter [facility] HealthcareEvaluation note* Diagnosis Primary hypertension (CMS/HCC)- Primary Unspecified essential hypertension Obesity with body mass index (BMI) of 30.0 to 39.9 Essential (primary) hypertension (CMS/HCC) Unspecified essential hypertension documented in this encounter [facility] HealthcareEvaluation note* Diagnosis Primary hypertension (CMS/HCC)- Primary Unspecified essential [...] ear Impacted cerumen documented in this encounter [facility] HealthcareEvaluation note* Diagnosis Primary hypertension (CMS/HCC)- Primary Unspecified essential [...] unspecified type documented in [facility] encounter [facility] Diagnosis Primary hypertension (CMS/HCC)- Primary Unspecified essential [...] type- Primary documented in this [facility] Diagnosis Primary hypertension (CMS/HCC)- Primary Unspecified essential [...] Impacted cerumen of left ear Impacted cerumen Primary hypertension (CMS/HCC)- Primary Unspecified essential hypertension Morbid (severe) obesity due to excess calories (CMS/HCC) Mixed hyperlipidemia (CMS/HCC) Mixed hyperlipidemia Body mass index (BMI) 39.0-39.9, adult Essential (primary) hypertension (CMS/HCC) Unspecified essential hypertension Subacute cough Dyspnea on exertion Other dyspnea and respiratory abnormality Family history of coronary artery disease Family history of ischemic heart disease Impacted cerumen of left ear Impacted cerumen documented in this encounter [facility] HealthcareEvaluation note* Diagnosis Primary hypertension (CMS/HCC)- Primary Unspecified essential [...] Impacted cerumen of left ear Impacted cerumen Primary hypertension (CMS/HCC)- Primary Unspecified essential hypertension Morbid (severe) obesity due to excess calories (CMS/HCC) Mixed hyperlipidemia (CMS/HCC) Mixed hyperlipidemia Body mass index (BMI) 39.0-39.9, adult Essential (primary) hypertension (CMS/HCC) Unspecified essential hypertension Subacute cough Dyspnea on exertion Other dyspnea and respiratory abnormality Family history of coronary artery disease Family history of ischemic heart disease Impacted cerumen of left ear Impacted cerumen Dyspnea on exertion- Primary Other dyspnea and respiratory abnormality LVH (left ventricular hypertrophy) Cardiomegaly Primary hypertension (CMS/HCC) Unspecified essential hypertension Pulmonary artery hypertension (CMS/HCC) Other chronic pulmonary heart diseases Family history of coronary artery disease Family history of ischemic heart disease documented in this encounter [facility] Summary Purpose Family History No Family History Records FoundNo Family History Records Found Advance Directives No Advanced Directives Records FoundNo Advanced Directives Records Found Additional Source Comments (unrecognized sect ion and content) No Status Records FoundNo Status Records Found INFORMATION SOURCE (unrecogn ized section and content) DATE CREATED AUTHOR 08/06/2023 [facility] DATE CREATED AUTHOR AUTHOR'S ORGANIZ ATION 09/18/2024 [facility] EPIC Reason for Visit (unrecogniz ed section and content) Reason Comments Med Refill Reason Comments Cough Reason Comments Hypertension Care Teams (unrecognized sec tion and content) Sliver Lap Tender Relationship Specialty Start Date End Date Chava Horne MD [address] [place] [address] PCP - General Family Medicine 10/21/23 Brenda Mcdowell, JULISSA [address] [place] [address] Nurse Practitioner Family Medicine 09/02/22 Sliver Lap Tender Relationship Specialty Start Date End Date Chava Horne MD [address] [place] [phone] PCP - General Family Medicine 10/21/23 Brenda Mcdowell NP [address] [place] [phone] Nurse Practitioner Family Medicine 09/02/22 Sliver Lap Tender Relationship Specialty Start Date End Date Chava Horne MD [address] [place] [phone] PCP - General Family Medicine 10/21/23 Brenda Mcdowell NP [address] [place] [phone] Nurse Practitioner Family Medicine 09/02/22 Sliver Lap Tender Relationship Specialty Start Date End Date Chava Horne MD [address] [place] [phone] PCP - General Family Medicine 10/21/23 Brenda Mcdowell NP [address] [place] [phone] Nurse Practitioner Family Medicine 09/02/22 Sliver Lap Tender Relationship Specialty Start Date End Date Chava Horne MD [address] [place] [phone] PCP - General Family Medicine 10/21/23 Brenda Mcdowell NP [address] [place] [phone] Nurse Practitioner Family Medicine 09/02/22 Sliver Lap Tender Relationship Specialty Start Date End Date Chava Horne MD [address] [place] [phone] PCP - General Family Medicine 10/21/23 Brenda Mcdowell NP [address] [place] [phone] Nurse Practitioner Family Medicine 09/02/22 Sliver Lap Tender Relationship Specialty Start Date End Date Chava Horne MD [address] [place] [phone] PCP - General Family Medicine 10/21/23 Brenda Mcdowell NP [address] [place] [phone] Nurse Practitioner Family Medicine 09/02/22 Sliver Lap Tender Relationship Specialty Start Date End Date Chava Horne MD [address] [place] [phone] PCP - General Family Medicine 10/21/23 Brenda Mcdowell NP [address] [place] [phone] Nurse Practitioner Family Medicine 09/02/22 Sliver Lap Tender Relationship Specialty Start Date End Date Chava Horne MD [address] [place] [phone] PCP - General Family Medicine 10/21/23 Brenda Mcdowell NP [address] [place] [phone] Nurse Practitioner Family Medicine 09/02/22 Sliver Lap Tender Relationship Specialty Start Date End Date Chava Horne MD [address] [place] [phone] PCP - General [facility] 10/21/23 Brenda Mcdowell NP [address] [place] [phone] Nurse Practitioner [facility] 09/02/22 Sliver Lap Tender Relationship Specialty Start Date End Date Chava Horne MD [address] [place] [phone] PCP - [facility] 10/21/23 Brenda Mcdowell NP [address] [place] [phone] Nurse Practitioner [facility] 09/02/22 FOR RECORDS PERTAINING TO PATIENTS WHO [...] BE BASED ON THE PRIMARY CLINICAL RECORDS. [facility]. provides no warranty or guarantee of the accuracy or completeness of information in this document.
[2024-10-02 17:03] VITALS: O2SAT 99
--- NOTE | 2024-10-02 17:14 | ED_ITS ---
Documented by User: Kiara Hartley 10/02/24 17:19 HPI HPI - General Adult General Chief complaint: Skin/Abscess/Foreign Body Stated complaint: Swallowed Guaze Time Seen by Provider: 10/02/24 16:50 Source: patient Mode of arrival: walk-in History of Present Illness HPI narrative: 59-year-old male presents to the emergency room with chief complaint of accidentally swallowing gauze. Patient had tooth extractions earlier today. He was eating a bowl of soup and did not remove the gauze. He accidentally swallowed the gauze. He was here concerned that it may cause issues. He is swallowing and having no difficulty. Denies any choking sensation. States the incident occurred earlier today. He is in no acute distress and swallowing secretions well. Related Data Home Medications ?Medication ?Instructions ?Recorded ?Confirmed naproxen sodium 220 mg capsule 220 mg PO Q12H 04/22/23 04/22/23 (Aleve) Allergies Allergy/AdvReac Type Severity Reaction Status Date / Time No Known Drug Allergies Allergy Verified 04/22/23 09:18 Opioid HPI Opioid Management Most Recent Opioid Data: Last Pain Scale 9 04/22/23 11:25 04/22/23 Review of Systems ROS Narrative All Systems are negative except as noted/marked.All systems reviewed and otherwise negative PFSH PFSH Family History (Updated 04/22/23 @ 12:34 by Ewa Thacker) Other Family history of CHF (congestive heart failure) Family history of COPD (chronic obstructive pulmonary disease) Family history of diabetes mellitus Family history of hypertension Social History (Updated 04/22/23 @ 12:34 by Ewa Thacker) Within the past year, how often did you have a drink containing alcohol: never Score interpretation: A score less than 4 is consistent with normal alcohol consumption. 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 General: The patient appears well and in no apparent distress. Patient is resting comfortably on cart. Skin: Warm, dry, no pallor noted. There is no rash noted. Head: Normocephalic, atraumatic Eye: Normal conjunctiva, no drainage, EOMI. PERRL Ears, Nose, Mouth, and Throat: oral mucosa is moist. Nares patent. Mouth without vesicles. Ear canals patent. Tm's without Erythema Cardiovascular: Regular Rate and Rhythm Respiratory: Patient is in no distress, no accessory muscle use, lungs are clear to auscultation, no wheezing, rales or rhonchi Back: non-tender, no CVA tenderness bilaterally to percussion. GI: Normal bowel sounds, no tenderness to palpation, no masses appreciated. No rebound, guarding, or rigidity noted. Musculoskeletal: The patient has no evidence of calf tenderness, no pitting edema, symmetrical pulses noted bilaterally Neurological: A&O x4, normal speech Psychiatric: Cooperative Constitutional Vital Signs, click to edit/add: Last Vital Signs Temp 97.8 F 10/02/24 16:50 Pulse 109 H 10/02/24 16:50 Resp 20 10/02/24 16:50 BP 147/96 H 10/02/24 16:50 Pulse Ox 99 10/02/24 17:03 O2 Del Method Room Air 10/02/24 17:03 Course Vital Signs Vital signs: Vital Signs Temperature 97.8 F 10/02/24 16:50 Pulse Rate 109 H 10/02/24 16:50 Respiratory Rate 20 10/02/24 16:50 Blood Pressure 147/96 H 10/02/24 16:50 Pulse Oximetry 96 10/02/24 16:50 Temperature 97.8 F 10/02/24 16:50 Pulse Rate 109 H 10/02/24 16:50 Respiratory Rate 20 10/02/24 16:50 Blood Pressure 147/96 H 10/02/24 16:50 Pulse Oximetry 99 10/02/24 17:03 Oxygen Delivery Method Room Air 10/02/24 17:03 Medical Decision Making MDM Narrative Medical decision making narrative: 59-year-old male presents to the emergency room with chief complaint of accidentally swallowing gauze. Patient had tooth extractions earlier today. He was eating a bowl of soup and did not remove the gauze. He accidentally swallowed the gauze. He was here concerned that it may cause issues. He is swallowing and having no difficulty. Denies any choking sensation. States the incident occurred earlier today. He is in no acute distress and swallowing secretions well. Patient advised that the gauze should pass without difficulty. Verbalized understanding agrees with plan of care. He shows no signs of distress. He states that swallowed the gauze easily as it had been in his mouth over top the extraction area with his soup he was eating. No further testing necessary at this time. Patient discharged to home Differential Diagnosis Differential Diagnosis: accidental ingestion Medical Records Medical records reviewed: Yes I reviewed the patient's medical records Discharge Plan Discharge Chief Complaint: Skin/Abscess/Foreign Body Clinical Impression: Foreign body ingestion Patient Disposition: Home, Self-Care Time of Disposition Decision: 17:13 Condition: Good Mode of Transportation: Private Vehicle Prescriptions / Home Meds: No Action naproxen sodium [Aleve] 220 mg capsule 220 mg PO Q12H Print Language: Kiswahili Instructions: Foreign Body Ingestion (ED) Referrals: Brenda Mcdowell LITIGATION CLAIM REPRESENTATIVE [Primary Care Provider] - 1 week Discharge Date/Time: 10/02/24 17:33 Documented by User: Jessee Johnston MD 10/02/24 20:05 HPI HPI - General Adult General Chief complaint: Skin/Abscess/Foreign Body Stated complaint: Swallowed Guaze Time Seen by Provider: 10/02/24 16:50 Related Data Home Medications ?Medication ?Instructions ?Recorded ?Confirmed naproxen sodium 220 mg capsule 220 mg PO Q12H 04/22/23 04/22/23 (Aleve) Allergies Allergy/AdvReac Type Severity Reaction Status Date / Time No Known Drug Allergies Allergy Verified 04/22/23 09:18 Opioid HPI Opioid Management Most Recent Opioid Data: Last Pain Scale 9 04/22/23 11:25 04/22/23 PFSH PFSH Family History (Updated 04/22/23 @ 12:34 by Ewa Thacker) Other Family history of CHF (congestive heart failure) Family history of COPD (chronic obstructive pulmonary disease) Family history of diabetes mellitus Family history of hypertension Social History (Updated 04/22/23 @ 12:34 by Ewa Thacker) Within the past year, how often did you have a drink containing alcohol: never Score interpretation: A score less than 4 is consistent with normal alcohol consumption. 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 Highest level of school completed/degree received: high school graduate Exam Constitutional Vital Signs, click to edit/add: Last Vital Signs Temp 97.8 F 10/02/24 16:50 Pulse 109 H 10/02/24 16:50 Resp 20 10/02/24 16:50 BP 147/96 H 10/02/24 16:50 Pulse Ox 99 10/02/24 17:03 O2 Del Method Room Air 10/02/24 17:03 Course Vital Signs Vital signs: Vital Signs Temperature 97.8 F 10/02/24 16:50 Pulse Rate 109 H 10/02/24 16:50 Respiratory Rate 20 10/02/24 16:50 Blood Pressure 147/96 H 10/02/24 16:50 Pulse Oximetry 96 10/02/24 16:50 Temperature 97.8 F 10/02/24 16:50 Pulse Rate 109 H 10/02/24 16:50 Respiratory Rate 20 10/02/24 16:50 Blood Pressure 147/96 H 10/02/24 16:50 Pulse Oximetry 99 10/02/24 17:03 Oxygen Delivery Method Room Air 10/02/24 17:03 Medical Decision Making MDM Narrative Medical decision making narrative: 59-year-old male presents to the emergency room with chief complaint of accidentally swallowing gauze. Patient had tooth extractions earlier today. He was eating a bowl of soup and did not remove the gauze. He accidentally swall owed the gauze. He was here concerned that it may cause issues. He is swallowing and having no difficulty. Denies any choking sensation. States the incident occurred earlier today. He is in no acute distress and swallowing secretions well. Patient advised that the gauze should pass without difficulty. Verbalized understanding agrees with plan of care. He shows no signs of distress. He sta zuhair that swallowed the gauze easily as it had been in his mouth over top the extraction area with his soup he was eating. No further testing necessary at this time. Patient discharged to home I, Dr Johnston, have reviewed the above progress note and course of action in the ER; agree with the above. I have personally seen and evaluated this patient, gone over history and physical, and discussed disposition and treatment plan with the patient. Discharge Plan Discharge Chief Complaint: Skin/Abscess/Foreign Body Clinical Impression: Foreign body ingestion Patient Disposition: Home, Self-Care Time of Disposition Decision: 17:13 Condition: Good Mode of Transportation: Private Vehicle Prescriptions / Home Meds: No Action naproxen sodium [Aleve] 220 mg capsule 220 mg PO Q12H Print Language: Kiswahili Instructions: Foreign Body Ingestion (ED) Referrals: Brenda Mcdowell NP [Primary Care Provider] - 1 week Discharge Date/Time: 10/02/24 17:33
== END 2024-10-02 17:33 | disposition home or self-care (01) ==
PROVIDERS: Emergency Provider Emergency Medicine; PCP Nurse Practitioner
DX: T18.9XXA Foreign body of alimentary tract, part unspecified, initial encounter (principal); W44.8XXA Other foreign body entering into or through a natural orifice, initial encounter; K08.409 Partial loss of teeth, unspecified cause, unspecified class
CPT/HCPCS: 99281

== ENCOUNTER 2024-11-06 06:22 | Outpatient (OUT) | payer OTHER, SELFPAY ==
--- NOTE | 2024-11-06 | PCN_ITS ---
CARDIAC STRESS TEST Requesting Physician: Procedure Date: 11/06/2024 This was a treadmill exercise stress test with myocardial perfusion imaging performed at the [facility] on 11/06/2024. An intravenous line was secured. Baseline vital signs and ECG were obtained. The patient exercised on a treadmill for 3 minutes and 27 seconds and completed stage 1 of the Venkata protocol and achieved 4.6 METS. Resting heart rate was 75 BPM and maximum heart rate was 146 BPM, representing 91% of maximal predicted heart rate. Resting blood pressure was 141/93 and peak blood pressure was 170/101. The test was stopped due to achieving target heart rate and shortness of breath. The patient then went on to obtain myocardial perfusion imaging. Resting ECG showed evidence of sinus rhythm without ischemic changes. ECG during treadmill exercise showed sinus tachycardia with frequent PVCs occurring in bigeminy and in couplets. There was no evidence of ischemic ST changes seen. Following the completion of the exercise, there was evidence of sinus rhythm without ischemic ST changes and no PVCs. SUMMARY OF THE FINDINGS: 1. No evidence of ischemic ST changes seen following treadmill exercise. 2. Frequent PVCs seen in bigeminy and in couplets during treadmill exercise. 3. Resting hypertension and hypertensive response to exercise. 4. Poor functional capacity. Bobo treadmill score of 3.5 is associated with intermediate risk for long-term cardiac events. 5. Myocardial perfusion imaging will be reported separately. LORID
--- NOTE | 2024-11-06 | NM_ITS ---
Patient Name: KEYON JAMIL I MR#: [id number] : 1965 Exam Date: 11/06/2024 Ordering Doctor: CHATA Mcdowell CNP Caution: Report not yet finalized and possibly incomplete! RADIOLOGY REPORT PROCEDURE: NM ANDRAE PERF SPECT REST STR COMPARISON: None. INDICATIONS: DYSPNEA ON EXERTION, LVH, PRIMARY HTN, PULMONARY HTN TECHNIQUE: Exam Description: Stress/Rest one day protocol gated SPECT Rest Imagin.7 mCi Tc-99m Cardiolite IV on 11/06/2024 Stress Imaging 29.5 mCi Tc-99m Cardiolite IV on 11/06/2024 Exercise Protocol: Venkata Heart Rate (bpm): Rest: 75 Max: 146 PMHR: 91 Blood Pressure: Rest: 141/93 Max: 170/101 Exercise Time: Minutes: 3 Seconds: 27 Stage Reached: Stage: 1 Mets 4.6 Symptoms: Shortness of breath Rest and peak stress ECG findings were pending and the exercise portion of the study was pending per attending physician [facility] . For more details, please see separate cardiac stress test report. FINDINGS: QUALITY OF STUDY: Adequate PERFUSION DEFECT: None WALL MOTION: Normal wall motion LV SIZE: 86 mL. TID / TCD: 0.8 LVEF: Calculated EF 67%. SUMMARY: Myocardial perfusion imaging study is normal CONCLUSION: 1. Myocardial perfusion is normal with soft tissue attenuation 2. Global left ventricular systolic function is normal 3. No evidence of transient ischemic dilatation Dictated by: Cayden Gonzalez M.D. on 11/11/2024 at 12:16 Approved by: Cayden Gonzalez M.D. on 11/11/2024 at 12:19
--- OUTSIDE RECORDS SUMMARY | 2024-11-06 06:25 | XMS_ITS | CCD ---
Author Organization [facility] Care Team Providers Care Director Chemistry Name Role Phone July ELECTRONICS SUPERVISOR, Brenda Unavailable Chava Horne MD Primary Care [...] WITH AUTO DIFFon BASOPHILS ABSOLUTE AUTO 0.1 [facility] Basophils/100 WBC (Bld) 0.7 % 0.2 - 2.0 % [facility] Eosinophils/100 WBC (Bld) 3.1 % 0.9 - 7.0 % [facility] Erythrocyte distribution width (RBC) [Ratio] 13.2 % 11.0 - 15.0 % [facility] Hematocrit (Bld) [Volume fraction] 49.2 % 42.0 - 54.0 % [facility] (Bld) [Mass/Vol] 16.3 g/dL 14.0 - 18.0 g/dL [facility] IMMATURE GRANULOCYTES ABS AUTO 0.[address] [facility] Immature granulocytes/100 WBC (Bld) 0.5 % 0.0 - 0.5 % [facility] Interpretation and review of laboratory results Abnormal [facility] LYMPHOCYTES ABSOLUTE AUTO 2.4 [facility] Lymphocytes/100 WBC (Bld) 27.6 % 20.5 - 60.0 % [facility] MCH (RBC) [Entitic mass] 29.1 pg 25.9 - 34.[address] [facility] MCHC (RBC) [Mass/Vol] 33.1 g/dL 29.9 - 35.2 g/dL [facility] MCV (RBC) [Entitic vol] 87.7 fL 80.0 [...] Provider Letter August 05, 2023 KEYON [address]ORD [address] [place] [id number] : 1965 Dear Mr. Jamil, We have [...] your prompt attention to this matter. Sincerely, [facility] General Surgery [phone] [facility] Physician Referralon 023 Physician Referral [phone] [phone] [id number] Normal [facility] Vital Signs Date Time Vital Sign Value Performing Clinician Barak bejarano 09-14-2024 18:42-0500 Body mass index (BMI) [Ratio] 41.42 kg/m2 Brendaluis alberto Ndiayeholz ELECTRONICS SUPERVISOR Work Phone: [facility] 09-14-2024 18:42-0500 Body temperature 98.8 [degF] Brenda Zeldaholz ELECTRONICS SUPERVISOR Work Phone: [facility] 09-14-2024 18:42-0500 Body weight 106.05 kg Brenda Zeldaholz ELECTRONICS SUPERVISOR Work Phone: [facility] 09-14-2024 18:42-0500 Diastolic blood pressure 96 mm[Hg] Brenda Zeldaholz ELECTRONICS SUPERVISOR Work Phone: [facility] 09-14-2024 18:42-0500 Heart rate 100 /min Brenda Zeldaholz ELECTRONICS SUPERVISOR Work Phone: [facility] 09-14-2024 18:42-0500 Respiratory rate 20 /min Brenda Zeldaholz ELECTRONICS SUPERVISOR Work Phone: [facility] 09-14-2024 18:42-0500 SaO2% (BldA) [Mass fraction] 94 % Brenda Zeldaholz ELECTRONICS SUPERVISOR Work Phone: [facility] 09-14-2024 18:42-0500 Systolic blood pressure 130 mm[Hg] Brenda Zeldaholz ELECTRONICS SUPERVISOR Work Phone: [facility] 08-04-2024 08:56-0500 Body mass index (BMI) [Ratio] 38.48 kg/m2 Brenda Zeldaholz ELECTRONICS SUPERVISOR Work Phone: [facility] 08-04-2024 08:56-0500 Body temperature 98.49 [degF] Brenda Zeldaholz ELECTRONICS SUPERVISOR Work Phone: [facility] 08-04-2024 08:56-0500 Body weight 98.52 kg Brenda Zeldaholz ELECTRONICS SUPERVISOR Work Phone: [facility] 08-04-2024 08:56-0500 Diastolic blood pressure 90 mm[Hg] Brenda Zeldaholz ELECTRONICS SUPERVISOR Work Phone: [facility] 08-04-2024 08:56-0500 Heart rate 68 /min Brenda Louiehholz ELECTRONICS SUPERVISOR Work Phone: [facility] 08-04-2024 08:56-0500 SaO2% (BldA) [Mass fraction] 97 % Brenda Aichholz ELECTRONICS SUPERVISOR Work Phone: [facility] 08-04-2024 08:56-0500 Systolic blood pressure 138 mm[Hg] Brenda Aichholz ELECTRONICS SUPERVISOR Work Phone: [facility] 06-11-2024 15:05-0400 Body height 160 cm Brenda Aichholz ELECTRONICS SUPERVISOR Work Phone: [facility] 06-11-2024 15:05-0400 Body mass index (BMI) [Ratio] 39.57 kg/m2 Brenda Aichholz ELECTRONICS SUPERVISOR Work Phone: [facility] 06-11-2024 15:05-0400 Body temperature 98.71 [degF] Brenda Aichholz ELECTRONICS SUPERVISOR Work Phone: [facility] 06-11-2024 15:05-0400 Body weight 101.33 kg Brenda Aichholz ELECTRONICS SUPERVISOR Work Phone: [facility] 06-11-2024 15:05-0400 Diastolic blood pressure 98 mm[Hg] Brenda Aichholz ELECTRONICS SUPERVISOR Work Phone: [facility] 06-11-2024 15:05-0400 Heart rate 110 /min Brenda Aichholz ELECTRONICS SUPERVISOR Work Phone: [facility] 06-11-2024 15:05-0400 Respiratory rate 19 /min Brenda Aichholz ELECTRONICS SUPERVISOR Work Phone: [facility] 06-11-2024 15:05-0400 SaO2% (BldA) [Mass fraction] 95 % Brenda Aichholz ELECTRONICS SUPERVISOR Work Phone: [facility] 06-11-2024 15:05-0400 Systolic blood pressure 132 mm[Hg] Brenda Aichholz ELECTRONICS SUPERVISOR Work Phone: [facility] Encounters Encounter Date Encounter Type Care Provider Facility Start: 09-30-2024 End: 09-30-2024 Orders Only Brenda Mcdowell ELECTRONICS SUPERVISOR Work Phone: [facility] Comment on above: Dyspnea on exertion (Primary Dx); LVH (left ventricular hypertrophy); Primary hypertension (CMS/HCC); Pulmonary artery hypertension (CMS/HCC); Family history of coronary artery disease Start: 09-14-2024 End: 09-14-2024 Office outpatient visit 25 minutes Brenda Mcdowell ELECTRONICS SUPERVISOR Work Phone: [facility] Comment on above: Primary hypertension [...] 09-14-2024 End: 09-14-2024 Bamboo flowsheet Brenda Mcdowell ELECTRONICS SUPERVISOR Work Phone: [facility] Start: 09-14-2024 End: 09-14-2024 Bamboo flowsheet Brenda Mcdowell ELECTRONICS SUPERVISOR Work Phone: [facility] Start: 09-04-2024 End: 09-04-2024 [facility] Result Encounter Brenda Mcdowell ELECTRONICS SUPERVISOR Work Phone: [facility] External Department Unsolicited Start: 09-04-2024 End: 09-04-2024 [facility] Result Encounter Brenda Mcdowell ELECTRONICS SUPERVISOR Work Phone: [facility] External Department Unsolicited Start: 08-19-2024 End: 08-19-2024 Refill Brenda Mcdowell ELECTRONICS SUPERVISOR Work Phone: [facility] Comment on above: Upper respiratory tr act infection, unspecified type (Primary Dx) Start: 08-17-2024 End: 08-17-2024 Orders Only Brenda Mcdowell ELECTRONICS SUPERVISOR Work Phone: [facility] Comment on above: Subacute cough (Prim rizwan Dx); Upper respiratory tract infection, unspecified type Start: 08-04-2024 End: 08-04-2024 Bamboo flowsheet Brenda Mcdowell ELECTRONICS SUPERVISOR Work Phone: [facility] Start: 08-04-2024 End: 08-04-2024 Bamboo flowsheet Brenda Mcdowell ELECTRONICS SUPERVISOR Work Phone: [facility] Start: 08-04-2024 End: 08-04-2024 Office outpatient visit 15 minutes Brenda Mcdowell ELECTRONICS SUPERVISOR Work Phone: [facility] Comment on above: Upper respiratory tr act infection, unspecified type (Primary Dx); Primary hypertension (CMS/HCC); Obesity with body mass index (BMI) of 30.0 to 39.9; Wellness examination; Prostate cancer screening; Impacted cerumen of left ear Start: 08-04-2024 End: 08-04-2024 Patient encounter status Brenda July ELECTRONICS SUPERVISOR Work Phone: [facility] Start: 08-04-2024 End: 08-04-2024 ambulatory BRENDA ZELDAHOLZ Not Available Start: 06-11-2024 End: 06-11-2024 ambulatory BRENDA LOUIEHHOLZ Not Available Start: 06-11-2024 End: 06-11-2024 Office outpatient visit 15 minutes Brenda Mcdowell ELECTRONICS SUPERVISOR Work Phone: [facility] Comment on above: Primary hypertension (CMS/HCC) (Primary Dx); Obesity with body mass index (BMI) of 30.0 to 39.9; Essential (primary) hypertension (CMS/HCC) Start: 06-11-2024 End: 06-11-2024 Bamboo flowsheet Brenda Mcdowell ELECTRONICS SUPERVISOR Work Phone: [facility] Start: 06-11-2024 End: 06-11-2024 Bamboo flowsheet Brenda Mcdowell ELECTRONICS SUPERVISOR Work Phone: [facility] Start: 06-08-2024 End: 06-08-2024 Refill Brenda Mcdowell ELECTRONICS SUPERVISOR Work Phone: [facility] Comment on above: Essential (primary) hypertension (CMS/HCC) Start: 03-09-2024 End: 03-09-2024 ambulatory BRENDA AICBobHOLZ Not Available Start: 01-23-2024 End: 01-23-2024 ambulatory BRENDA AICHHOLZ Not Available Start: 12-05-2023 End: 12-05-2023 ambulatory BRENDA AICHHOLZ Not Available Start: 10-24-2023 End: 10-24-2023 ambulatory BRENDA AICBobHOLZ Not Available Start: 07-19-2023 ambulatory Facility:[facility] Procedures Date Procedure Procedure Detail Performing Clinician Start: 09-04-2024 ALL CBC WITH AUTO DIFF Brenda Mcdowell ELECTRONICS SUPERVISOR Work Phone: Start: 09-04-2024 [facility] MICROALB CREAT R ATIO RANDOM Brenda Mcdowell ELECTRONICS SUPERVISOR Work Phone: Plan of Treatment Date Care Activity Detail Author Start: 10-26-2024 End: 10-26-2024 Patient encounter procedure 10/26/2024 7:00 PM EST Office Visit [facility] [address] [place] [phone] Brenda Mcdowell NP [address] [place] [phone] [facility] Start: 10-24-2024 Screening for malign ant neoplasm of colon Colorectal Cancer Screening [facility] Comment on above: Postponed from 09/09 (Patient Refused) Start: 09-30-2024 End: 09-30-2025 SPECT Heart perfusion NM heart perfusion SPECT stress and rest Imaging Routine Dyspnea on exertion LVH (left ventricular hypertrophy) Primary hypertension (CMS/HCC) Pulmonary artery hypertension (CMS/HCC) Family history of coronary artery disease Expected: 09/30/2024 (Approximate), Expires: 09/30/2025 [facility] Work Phone: Comment on above: Expected: 09/30/2024 (Approximate), Expires: 09/30/2025 Start: 09-14-2024 End: 09-14-2024 Patient encounter procedure [facility] Comment on above: Primary hypertension (CMS/HCC) (Primary Dx); Morbid (severe) obesity due to excess calories (CMS/HCC); Mixed hyperlipidemia (CMS/HCC); Body mass index (BMI) 39.0-39.9, adult Start: 09-14-2024 End: 09-14-2026 Echocardiogram 2D complete Echocardiogram 2D complete Echocardiography High Priority Mixed hyperlipidemia (CMS/HCC) Essential (primary) hypertension (CMS/HCC) Dyspnea on exertion Family history of coronary artery disease Expected: 09/14/2024 (Approximate), Expires: 09/14/2026 [facility] Work Phone: Comment on above: Expected: 09/14/2024 (Approximate), Expires: 09/14/2026 Start: 08-17-2024 End: 08-17-2025 XR Chest 2 Views XR chest 2 views Imaging Routine Subacute cough Expected: 08/17/2024 (Approximate), Expires: 08/17/2025 [facility] Work Phone: Comment on above: Expected: 08/17/2024 (Approximate), Expires: 08/17/2025 Start: 08-04-2024 End: 08-04-2025 CBC W Auto Differential panel - Blood CBC and differential Lab Routine Wellness examination Expected: 08/04/2024 (Approximate), Expires: 08/04/2025 [facility] Comment on above: Expected: 08/04/2024 (Approximate), Expires: 08/04/2025 Start: 08-04-2024 End: 08-04-2025 Comprehensive metabolic 2000 panel - Serum or Plasma Comprehensive metabolic panel Lab Routine Wellness examination Expected: 08/04/2024 (Approximate), Expires: 08/04/2025 [facility] Comment on above: Expected: 08/04/2024 (Approximate), Expires: 08/04/2025 Start: 08-04-2024 End: 08-04-2025 Lipid 1996 panel - Serum or Plasma Lipid panel Lab Routine Wellness examination Expected: 08/04/2024 (Approximate), Expires: 08/04/2025 [facility] Comment on above: Expected: 08/04/2024 (Approximate), Expires: 08/04/2025 Start: 08-04-2024 End: 08-04-2025 Microalbumin/Creatinine panel in random Urine Microalbumin / creatinine, urine ratio Lab Routine Wellness examination Expected: 08/04/2024 (Approximate), Expires: 08/04/2025 [facility] Comment on above: Expected: 08/04/2024 (Approximate), Expires: 08/04/2025 Start: 08-04-2024 End: 08-04-2025 Prostate specific Ag [Mass/volume] in Serum or Plasma PSA Lab Routine Prostate cancer screening Expected: 08/04/2024 (Approximate), Expires: 08/04/2025 [facility] Work Phone: Comment on above: Expected: 08/04/2024 (Approximate), Expires: 08/04/2025 Start: 08-04-2024 End: 08-04-2025 Urinalysis complete panel - Urine Urinalysis with reflex microscopic (clean catch) Lab Routine Wellness examination Expected: 08/04/2024 (Approximate), Expires: 08/04/2025 [facility] Comment on above: Expected: 08/04/2024 (Approximate), Expires: 08/04/2025 Start: 08-04-2024 End: 08-04-2024 Patient encounter procedure 08/04/2024 9:00 AM EST Office Visit [facility] [address] [place] [address] Brenda Mcdowell NP [address] [place] [phone] Primary hypertension (CMS/HCC) (Primary Dx); Obesity with body mass index (BMI) of 30.0 to 39.9; Wellness examination; Prostate cancer screening [facility] Comment on above: Primary hypertension (CMS/HCC) (Primary Dx); Obesity with body mass index (BMI) of 30.0 to 39.9; Wellness examination; Prostate cancer screening Start: 06-11-2024 End: 06-11-2024 Patient encounter procedure 06/11/2024 3:00 PM EDT Office Visit [facility] [address] [place] [address] Brenda Mcdowell, JULISSA [address] [place] [phone] [facility] Start: 1965 Screening for malign ant neoplasm of colon [facility] Payers Date Payer Category Payer Private Health Insurance [id number] 2019 Private Health Insurance [id number] 1965 Unknown [id number] 1965 Unknown [id number] 1965 Unknown [id number] 2.16.84 [id number] 1965 Unknown [id number] 2.16.84 [id number] 1965 Unknown [id number] 2.16.84 [id number] 1965 Unknown [id number] 2.16.84 [id number] 1965 Unknown [id number] [id number] Social History Date Type Detail Facility Start: 10-24-2023 Tobacco smoking stat [facility] Never smoked tobacco [facility] Start: 10-24-2023 Tobacco use and exposure Smokeless t obacco non-user [facility] Start: 01-23-2024 End: 03-09-2024 History of Social function [facility] Start: 01-23-2024 End: 03-09-[address] [facility] Start: 1965 Sex assigned at Not on file [facility] Clinical Notes 06-11-2024 to 09-14-2024 Brenda [...] compliance problems. There is no history of CAD/TX, heart failure or PVD. SUBJECTIVE: MEDICATIONS: Current [...] History of kidney stones 10/24/2023 HTN (hypertension) ([facility]) 10/24/2023 Obesity with body mass index (BMI) [...] sugary drinks. . Associated Problem(s): HTN (hypertension) ([facility]) Please check blood pressure daily and record DASH diet Limit caffeine Take medication as directed Contact office if chest pain, pressure, dizziness, shortness of breath, swelling legs Recommend slow position changes Continue current meds: lisinopril, amlodipine Add asa documented in this encounter [facility] 09-14-2024 Instructions Brenda Mcdowell NP - 09/14/2024 7:00 PM EST Cough: Trial 3 weeks of cetirizine (zyrtec) 10mg daily, if cough not better, then stop this and trial 3 weeks of omeprazole (prilosec) 20mg daily Heart: ECHO (US of heart) will get approved with insurance and do at [facility] Cholesterol pill: atoravastatin ( lipitor) 20mg daily (take in the evening) if severe abd pain, yellowing of the skin muscle pain call me Add baby aspirin 81mg daily documented in this encounter [facility] 08-04-2024 History of Presen t illness Narrative [...] History of kidney stones 10/24/2023 HTN (hypertension) ([facility]) 10/24/2023 Obesity with body mass index (BMI) [...] List Items Addressed This Visit HTN (hypertension) ([facility]) Please check blood pressure daily and record [...] for weight loss. documented in this encounter [facility] 08-04-2024 Instructions Brenda Mcdowell NP - 08/04/2024 [...] fasting labs completed documented in this encounter [facility] 10-10-2024 History of Presen t illness Narrative [...] 10 MG tablet documented in this encounter [facility] Evaluation note Diagnosis Essential (primary) hypertension (CMS/HCC) Unspecified essential hypertension documented in this encounter [facility]* Diagnosis Primary hypertension (CMS/HCC)- Primary Unspecified essential hypertension Obesity with body mass index (BMI) of 30.0 to 39.9 Essential (primary) hypertension (CMS/HCC) Unspecified essential hypertension documented in this encounter [facility]* Diagnosis Primary hypertension (CMS/HCC)- Primary [...] ear Impacted cerumen documented in this encounter [facility]* Diagnosis Primary hypertension (CMS/HCC)- Primary [...] ear Impacted cerumen documented in this encounter [facility]* Diagnosis Primary hypertension (CMS/HCC)- Primary [...] and content) DATE CREATED AUTHOR 08/06/2023 [facility] DATE CREATED AUTHOR AUTHOR'S ORGANIZ ATION 09/18/2024 [facility] d[facility] Specialists EPIC Reason for Visit (unrecogniz ed section and content) Reason Comments Med Refill Reason Comments Cough Reason Comments Hypertension Care Teams (unrecognized sec tion and content) Director Chemistry Relationship Specialty Start Date End Date Chava Horne MD [address] [place] [address] PCP - General Family Medicine 10/21/23 Brenda Mcdowell, JULISSA [address] [place] [address] Nurse Practitioner Family Medicine 09/02/22 Director Chemistry Relationship Specialty Start Date End Date Chava Horne MD [address] [place] [phone] PCP - General Family Medicine 10/21/23 Brenda Mcdowell NP [address] [place] [phone] Nurse Practitioner Family Medicine 09/02/22 Director Chemistry Relationship Specialty Start Date End Date Chava Horne MD [address] [place] [phone] PCP - General Family Medicine 10/21/23 Brenda Mcdowell NP [address] [place] [phone] Nurse Practitioner Family Medicine 09/02/22 Director Chemistry Relationship Specialty Start Date End Date Chava Horne MD [address] [place] [phone] PCP - General Family Medicine 10/21/23 Brenda Mcdowell NP [address] [place] [phone] Nurse Practitioner Family Medicine 09/02/22 Director Chemistry Relationship Specialty Start Date End Date Chava Horne MD [address] [place] [phone] PCP - General Family Medicine 10/21/23 Brenda Mcdowell NP [address] [place] [phone] Nurse Practitioner Family Medicine 09/02/22 Director Chemistry Relationship Specialty Start Date End Date Chava Horne MD [address] [place] [phone] PCP - General Family Medicine 10/21/23 Brenda Mcdowell NP [address] [place] [phone] Nurse Practitioner Family Medicine 09/02/22 Director Chemistry Relationship Specialty Start Date End Date Chava Horne MD [address] [place] [phone] PCP - General Family Medicine 10/21/23 Brenda Mcdowell NP [address] [place] [phone] Nurse Practitioner Family Medicine 09/02/22 Director Chemistry Relationship Specialty Start Date End Date Chava Horne MD [address] [place] [phone] PCP - General Family Medicine 10/21/23 Brenda Mcdowell NP [address] [place] [phone] Nurse Practitioner Family Medicine 09/02/22 Director Chemistry Relationship Specialty Start Date End Date Chava Horne MD [address] [place] [phone] PCP - General Family Medicine 10/21/23 Brenda Mcdowell NP [address] [place] [phone] Nurse Practitioner Family Medicine 09/02/22 Director Chemistry Relationship Specialty Start Date End Date Chava Horne MD [address] [place] [phone] PCP - General [facility] 10/21/23 Brenda Mcdowell NP [address] [place] [phone] Nurse Practitioner [facility] 09/02/22 Director Chemistry Relationship Specialty Start Date End Date Chava Horne MD [address] [place] [phone] PCP - [facility] 10/21/23 Brenda Mcdowell NP [address] [place] [phone] Nurse Practitioner [facility] 09/02/22 FOR RECORDS PERTAINING TO PATIENTS [...] BE BASED ON THE PRIMARY CLINICAL RECORDS. [facility] [employer] [facility]. provides no warranty or guarantee of the accuracy or completeness of information in this document.
--- NOTE | 2024-11-06 10:38 | PC.NURSE ---
Nursing Note Cardiac Stress Test Reviewed: Medication, allergies and patient history reviewed. Stress Test: [ x] Patient tolerated stress test well. [ ] Patient unable to tolerate walking on treadmill. Switched to Lexiscan stress test. [ ]x No chest pain noted per patient [ ] Chest pain that resolved prior to leaving stress lab. [ ] No dyspnea noted. [x ] Dyspnea that resolved prior to leaving stress lab. [x] Patient left stress lab asymptomatic and hemodynamically stable. [ ] Patient taken to the Emergency Room due to non-resolving symptoms following stress test. [ x] Patient achieved target heart rate. [ ] Patient unable to achieve target heart rate. [ ] Aminophylline administered as reversal agent to Lexiscan (Regadenoson). [ ] Nitro administered. Nursing Comments:
== END 2024-11-06 06:23 | disposition home or self-care (01) ==
LOC: NM 06:23
PROVIDERS: PCP Nurse Practitioner; Visit Provider Nurse Practitioner
DX: R06.09 Other forms of dyspnea (principal); I27.21 Secondary pulmonary arterial hypertension; Z82.49 Family history of ischemic heart disease and other diseases of the circulatory system; I10 Essential (primary) hypertension
CPT/HCPCS: 78452; 93017; A9500

== ENCOUNTER 2024-11-20 07:46 | Outpatient (OUT) | payer OTHER, SELFPAY ==
--- OUTSIDE RECORDS SUMMARY | 2024-11-20 07:49 | XMS_ITS | CCD ---
Author Organization [facility] Care Team Providers Care Cell Lead Name Role Phone July WELDER EXPERIMENTAL, Brenda Unavailable Coleen BRAMBILA, Chava Primary Care Provider [phone] BRENDA MCDOWELL Attending Unavailable JULY, BRENDA Attending Unavailable LOUIEHHOLZ, BRENDA Attending Unavailable LOUIEHHOLZ, BRENDA Attending Unavailable AICHHOLZ, BRENDA Attending Unavailable LOUIEHHOLZ, BRENDA Attending Unavailable JASSIZ, BRENDA Attending Unavailable Medications Current Medications Medication Drug Class(es) Dates Sig (Normalized) Sig (Original) amLODIPine 10 mg oral tablet (20 sources) Dihydropyridine Calcium Channel Holli Start: 03-09-20 End: 12-14-19 take 1 tablet by mouth once daily amLODIPine (Norvasc) 10 MG tablet Indications: Essential (primary) hypertension (CMS/HCC) Take 1 tablet (10 mg) by mouth Daily 90 tablet 1 09/14/2024 12/13/2024 Active atorvastatin 20 mg oral tablet (4 sources) HMG-CoA Reductase Inhibitor Start: 09-14-19 End: [...] 08/24/2024 Active lisinopril 20 mg oral tablet (17 sources) Angiotensin Converting Enzyme Inhibitor Start: 03-09-20 [...] Active naproxen sodium 220 mg oral capsule (15 sources) Nonsteroidal Anti-inflammatory Drug take 1 capsule [...] Da te Episodic/Chronic Disorders of lipid metabolism (9 sources) Mixed hyperlipidemia; Translations: [Mixed hyperlipidemia] Onset: 09-04-2024 09-04-2024 Chronic Essential hypertension (20 sources) Essential hypertension; Translations: [Essential (primary) hypertension] Onset: 10-24-2023 06-08-2024 Chronic Hyperplasia of prostate (15 sources) Large prostate ; Translations: [Benign prostatic hyperplasia without lower urinary tract symptoms] Onset: 10-24-2023 10-24-2023 Chronic Other and ill-defined heart disease (4 sources) Left ventricular hypertrophy; Translations: [Cardiomegaly] Onset: 09-25-2024 09-30-2024 Chronic Other lower respiratory disease (11 sources) Cough; Translations: [Subacute cough] Onset: 08-17-2024 08-17-2024 Episodic Other lower respiratory disease (10 sources) Dyspnea on exertion; Translations: [Other forms of dyspnea] Onset: 09-14-2024 09-14-2024 Episodic Other nutritional; endocrine; and metabolic disorders (20 sources) Body mass index 30+ - obesity; Translations: [Obesity, unspecified] Onset: 10-24-2023 10-24-2023 Chronic Other nutritional; endocrine; and metabolic disorders (7 sources) Obesity caused by energy imbalance; Translations: [Morbid (severe) obesity due to excess calories] Onset: 09-14-2024 09-14-2024 Chronic Pulmonary heart disease (4 sources) Pulmonary arterial hypertension; Translations: [Secondary pulmonary arterial hypertension] Onset: 09-25-2024 09-30-2024 Chronic Residual codes; unclassified (10 sources) Family history of coronary arteriosclerosis; Translations: [Family history of ischemic heart disease and other diseases of the circulatory system] Onset: 09-14-2024 09-14-2024 Episodic Past or Other Problems Problem Classification Problem Date Documented Da te Episodic/Chronic Calculus of urinary tract (15 sources) History of calculus of kidney; Translations: [Personal history of urinary calculi] Onset: 10-24-2023 10-24-2023 Episodic Cardiac and circulatory congenital anomalies (2 sources) Congenital hypoplasia of pulmonary artery; 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] Onset: 09-25-2024 Resolved: 09-25-2024 09-25-2024 Chronic Disorders of teeth and jaw (15 sources) Toothache; Translations: [Other specified disorders of teeth and supporting structures] Onset: 01-23-2024 Resolved: 08-04-2024 01-23-2024 Episodic Mycoses (15 sources) Onychomycosis; Translations: [Tinea unguium] Onset: 03-09-2024 03-09-2024 Episodic Other ear and sense organ disorders (14 sources) Impacted cerumen in left ear; Translations: [Impacted cerumen, left ear] Onset: 08-04-2024 08-04-2024 Episodic Other gastrointestinal disorders (15 sources) Heartburn; Translations: [Heartburn] Onset: 10-24-2023 10-24-2023 Episodic Other screening for suspected conditions (not mental disorders or infectious disease) (17 sources) Patient encounter status; Translations: [Encounter for screening for malignant neoplasm of prostate] Onset: 01-08-2024 01-08-2024 Episodic Other upper respiratory infections (14 sources) Upper respiratory infection; Translations: [Acute upper respiratory infection, unspecified] Onset: 08-04-2024 08-04-2024 Episodic Results Test Name Value Interpretation Reference Range Facility NM DARNELL PERF SPECT REST STRon 11-11-2024 [place] [address] Nuclear Medicine Report Signed Patient: KEYON ZUNIGA MR#: [id number] : 1965 Acct:[id number] Age/Sex: 59 / M ADM Date: 11/06/24 Loc: NM Attending Dr: Brenda Mcdowell NP Ordering Physician: Brenda Mcdowell NP Date of Service: 11/06/24 Procedure(s): NM darnell perf SPECT rest str Accession Number(s): [id number] cc: Brenda Mcdowell NP Patient Name: KEYON JAMIL I MR#: [id number] : 1965 Exam Date: 11/06/2024 Ordering Doctor: CHATA Mcdowell CNP Caution: Report not yet finalized and possibly incomplete! RADIOLOGY REPORT PROCEDURE: NM DARNELL PERF SPECT REST STR COMPARISON: None. INDICATIONS: DYSPNEA ON EXERTION, LVH, PRIMARY HTN, PULMONARY HTN TECHNIQUE: Exam Description: Stress/Rest one day protocol gated SPECT Rest Imagin.7 mCi Tc-99m Cardiolite IV on 11/06/2024 Stress Imaging 29.5 mCi Tc-99m Cardiolite IV on 11/06/2024 Exercise Protocol: Venkata Heart Rate (bpm): Rest: 75 Max: 146 PMHR: 91 Blood Pressure: Rest: 141/93 Max: 170/101 Exercise Time: Minutes: 3 Seconds: 27 Stage Reached: Stage: 1 Mets 4.6 Symptoms: Shortness of breath Rest and peak stress ECG findings were pending and the exercise portion of the study was pending per attending physician [facility] . For more details, please see separate cardiac stress test report. FINDINGS: QUALITY OF STUDY: Adequate PERFUSION DEFECT: None WALL MOTION: Normal wall motion LV SIZE: 86 mL. TID / TCD: 0.8 LVEF: Calculated EF 67%. SUMMARY: Myocardial perfusion imaging study is normal CONCLUSION: 1. Myocardial perfusion is normal with soft tissue attenuation 2. Global left ventricular systolic function is normal 3. No evidence of transient ischemic dilatation Dictated by: Cayden Gonzalez M.D. on 11/11/2024 at 12:16 Approved by: Cayden Gonzalez M.D. on 11/11/2024 at 12:19 Dictated By: Cayden Gonzalez M.D. Signed By: 11/11/24 1220 DD/ 1219 TD/TT: Spring Coiler Hand: [facility] Radiology, Radiologist, MD - 11/11/2024 [place] [address] Nuclear Medicine Report Signed Patient: KEYON ZUNIGA MR#: [id number] : 1965 Acct:[id number] Age/Sex: 59 / M ADM Date: 11/06/24 Loc: NM Attending Dr: Brenda Mcdowell NP Ordering Physician: Brenda Mcdowell NP Date of Service: 11/06/24 Procedure(s): NM darnell perf SPECT rest str Accession Number(s): [id number] cc: Brenda Mcdowell NP Patient Name: KEYON JAMIL I MR#: [id number] : 1965 Exam Date: 11/06/2024 Ordering Doctor: CHATA Mcdowell CNP Caution: Report not yet finalized and possibly incomplete! RADIOLOGY REPORT PROCEDURE: NM DARNELL PERF SPECT REST STR COMPARISON: None. INDICATIONS: DYSPNEA ON EXERTION, LVH, PRIMARY HTN, PULMONARY HTN TECHNIQUE: Exam Description: Stress/Rest one day protocol gated SPECT Rest Imagin.7 mCi Tc-99m Cardiolite IV on 11/06/2024 Stress Imaging 29.5 mCi Tc-99m Cardiolite IV on 11/06/2024 Exercise Protocol: Venkata Heart Rate (bpm): Rest: 75 Max: 146 PMHR: 91 Blood Pressure: Rest: 141/93 Max: 170/101 Exercise Time: Minutes: 3 Seconds: 27 Stage Reached: Stage: 1 Mets 4.6 Symptoms: Shortness of breath Rest and peak stress ECG findings were pending and the exercise portion of the study was pending per attending physician [facility] . For more details, please see separate cardiac stress test report. FINDINGS: QUALITY OF STUDY: Adequate PERFUSION DEFECT: None WALL MOTION: Normal wall motion LV SIZE: 86 mL. TID / TCD: 0.8 LVEF: Calculated EF 67%. SUMMARY: Myocardial perfusion imaging study is normal CONCLUSION: 1. Myocardial perfusion is normal with soft tissue attenuation 2. Global left ventricular systolic function is normal 3. No evidence of transient ischemic dilatation Dictated by: Cayden Gonzalez M.D. on 11/11/2024 at 12:16 Approved by: Cayden Gonzalez M.D. on 11/11/2024 at 12:19 Dictated By: Cayden Gonzalez M.D. Signed By: 11/11/24 1220 DD/ 1219 TD/TT: Spring Coiler Hand: [facility] Radiology Study observation (narrative) [facility] NM DARNELL PERF SPECT REST STROr dered By: Radiologist Radiology on 11-11-2024 [facility] e Work Phone: ALL CBC WITH AUTO DIFFon BASOPHILS ABSOLUTE AUTO 0.1 [facility] Basophils/100 WBC (Bld) 0.7 % 0.2 - 2.0 % [facility] Eosinophils/100 WBC (Bld) 3.1 % 0.9 - 7.0 % [facility] Erythrocyte distribution width (RBC) [Ratio] 13.2 % 11.0 - 15.0 % [facility] Hematocrit (Bld) [Volume fraction] 49.2 % 42.0 - 54.0 % [facility] e Hemoglobin (Bld) [Mass/Vol] 16.3 g/dL 14.0 - 18.0 g/dL [facility] IMMATURE GRANULOCYTES ABS AUTO 0.04 High [facility] Immature granulocytes/100 WBC (Bld) 0.5 % 0.0 - 0.5 % [facility] Interpretation and review of laboratory results Abnormal [facility] LYMPHOCYTES ABSOLUTE AUTO 2.4 [facility] Lymphocytes/100 WBC (Bld) 27.6 % 20.5 - 60.0 % [facility] MCH (RBC) [Entitic mass] 29.1 pg 25.9 - 34.0 pg [facility] MCHC (RBC) [Mass/Vol] 33.1 g/dL 29.9 - 35.2 g/dL [facility] MCV (RBC) [Entitic vol] 87.7 fL 80.0 - 94.0 fL [facility] MONOCYTES ABSOLUTE AUTO 0.8 [facility] Monocytes/100 WBC (Bld) 8.6 % 1.7 - 12.0 % [facility] NEUTROPHILS ABSOLUTE AUTO 5.2 [facility] Neutrophils/100 WBC (Bld) 59.5 % 43.0 - 75.0 % [facility] Platelet mean volume (Bld) [Entitic vol] 11.1 fL 9.5 - 13.5 fL [facility] Healthc are TBH EO # 0.3 [facility] TB PLT 248 [facility] TB RBC 5.61 [facility] TB WBC 8.7 [facility] TBH MICROALB CREAT RATIO RAN DOMon 09-04-2024 CREATININE URINE RANDOM 78.54 mg/dL 20.00 - 300.00 mg/dL [facility] MICROALBUM CREATININE RATIO UR 22.9 mg/g 0.0 - 29.9 mg/g [facility] Comment on above: NO MICROALBUMINURIA 0-29 MG/G CLINICAL MICROALBUMINURIA 30-300 MG/G MACROALBUMINURIA >300 MG/G MICROALBUMIN URINE RANDOM 1.8 mg/dL NINF - 30.0 mg/dL [facility] Provider Letteron 08-05-2023 Provider Letter August 05, 2023 KEYON JAMIL [address] [place] [id number] : 1965 Dear Mr. Jamil, We have been trying to reach you with no success regarding a referral we received from Brenda July. It is important that you return our call upon receiving this letter so that we can set up an appointment for you. Also, at the time of your call, please provide us with your current demographic and insurance information. Thank you for your prompt attention to this matter. Sincerely, [facility] Surgery [phone] Normal [facility] Physician Referralon 023 Physician Referral [phone] [id number] [facility] Vital Signs Date Time Vital Sign Value Performing Clinician Barak bejarano 09-14-2024 18:42-0500 Body mass index (BMI) [Ratio] 41.42 kg/m2 Brenda Ochoaeron WELDER EXPERIMENTAL Work Phone: [facility] 09-14-2024 18:42-0500 Body temperature 98.8 [degF] Brenda Ochoaeron WELDER EXPERIMENTAL Work Phone: [facility] 09-14-2024 18:42-0500 Body weight 106.05 kg Brenda Ochoaeron WELDER EXPERIMENTAL Work Phone: [facility] 09-14-2024 18:42-0500 Diastolic blood pressure 96 mm[Hg] Brenda Ochoaeron WELDER EXPERIMENTAL Work Phone: [facility] 09-14-2024 18:42-0500 Heart rate 100 /min Brenda Louielindsayeron WELDER EXPERIMENTAL Work Phone: [facility] 09-14-2024 18:42-0500 Respiratory rate 20 /min Brenda Ochoaeron WELDER EXPERIMENTAL Work Phone: [facility] 09-14-2024 18:42-0500 SaO2% (BldA) [Mass fraction] 94 % Brenda Louielindsayeron WELDER EXPERIMENTAL Work Phone: [facility] 09-14-2024 18:42-0500 Systolic blood pressure 130 mm[Hg] Brenda July WELDER EXPERIMENTAL Work Phone: [facility] 08-04-2024 08:56-0500 Body mass index (BMI) [Ratio] 38.48 kg/m2 Brenda Louiehholz WELDER EXPERIMENTAL Work Phone: [facility] 08-04-2024 08:56-0500 Body temperature 98.49 [degF] Brenda Aichholz WELDER EXPERIMENTAL Work Phone: [facility] 08-04-2024 08:56-0500 Body weight 98.52 kg Brenda Aichholz WELDER EXPERIMENTAL Work Phone: [facility] 08-04-2024 08:56-0500 Diastolic blood pressure 90 mm[Hg] Brenda Aichholz WELDER EXPERIMENTAL Work Phone: [facility] 08-04-2024 08:56-0500 Heart rate 68 /min Brenda Louiehholz WELDER EXPERIMENTAL Work Phone: [facility] 08-04-2024 08:56-0500 SaO2% (BldA) [Mass fraction] 97 % Brenda Louiehholz WELDER EXPERIMENTAL Work Phone: [facility] 08-04-2024 08:56-0500 Systolic blood pressure 138 mm[Hg] Brenda Aichholz WELDER EXPERIMENTAL Work Phone: [facility] 06-11-2024 15:05-0400 Body height 160 cm Brenda Louiehholz WELDER EXPERIMENTAL Work Phone: [facility] 06-11-2024 15:05-0400 Body mass index (BMI) [Ratio] 39.57 kg/m2 Brenda Aichholz WELDER EXPERIMENTAL Work Phone: [facility] 06-11-2024 15:05-0400 Body temperature 98.71 [degF] Brenda Aichholz WELDER EXPERIMENTAL Work Phone: [facility] 06-11-2024 15:05-0400 Body weight 101.33 kg Brenda Aichholz WELDER EXPERIMENTAL Work Phone: [facility] 06-11-2024 15:05-0400 Diastolic blood pressure 98 mm[Hg] Brenda Aichholz WELDER EXPERIMENTAL Work Phone: [facility] 06-11-2024 15:05-0400 Heart rate 110 /min Brenda Mcdowell WELDER EXPERIMENTAL Work Phone: [facility] 06-11-2024 15:05-0400 Respiratory rate 19 /min Brenda Mcdowell WELDER EXPERIMENTAL Work Phone: [facility] 06-11-2024 15:05-0400 SaO2% (BldA) [Mass fraction] 95 % Brenda Mcdowell WELDER EXPERIMENTAL Work Phone: [facility] 06-11-2024 15:05-0400 Systolic blood pressure 132 mm[Hg] Brenda Mcdowell WELDER EXPERIMENTAL Work Phone: [facility] Healthcare Encounters Encounter Date Encounter Type Care Provider Facility Start: 11-16-2024 End: 11-16-2024 ambulatory BRENDA MCDOWELL Not Available Start: 11-11-2024 End: 11-11-2024 [facility] Result Encounter Brenda Mcdowell WELDER EXPERIMENTAL Work Phone: [facility] External Department Unsolicited Start: 11-11-2024 End: 11-11-2024 [facility] Result Encounter Brenda Mcdowell WELDER EXPERIMENTAL Work Phone: [facility] External Department Unsolicited Start: 09-30-2024 End: 09-30-2024 Orders Only Brenda Mcdowell WELDER EXPERIMENTAL Work Phone: [facility] FM Comment on above: Dyspnea on exertion (Primary Dx); LVH (left ventricular hypertrophy); Primary hypertension (CMS/HCC); Pulmonary artery hypertension (CMS/HCC); Family history of coronary artery disease Start: 09-14-2024 End: 09-14-2024 Office outpatient visit 25 minutes Brenda Ochoarezamarvin WELDER EXPERIMENTAL Work Phone: [facility] Comment on above: Primary hypertension (CMS/HCC) (Primary Dx); Morbid (severe) obesity due to excess calories (CMS/HCC); Mixed hyperlipidemia (CMS/HCC); Body mass index (BMI) 39.0-39.9, adult; Essential (primary) hypertension (CMS/HCC); Subacute cough; Dyspnea on exertion; Family history of coronary artery disease; Impacted cerumen of left ear Start: 09-14-2024 End: 09-14-2024 ambulatory BRENDA OCHOAREZAMarvin Not Available Start: 09-14-2024 End: 09-14-2024 Bamboo flowsheet Brenda Ochoaeron WELDER EXPERIMENTAL Work Phone: [facility] Start: 09-14-2024 End: 09-14-2024 Bamboo flowsheet Brenda Ochoaeron WELDER EXPERIMENTAL Work Phone: [facility] Start: 09-04-2024 End: 09-04-2024 [facility] Result Encounter Brenda Palmaciro WELDER EXPERIMENTAL Work Phone: [facility] External Department Unsolicited Start: 09-04-2024 End: 09-04-2024 [facility] Result Encounter Brenda Ochoaeron WELDER EXPERIMENTAL Work Phone: [facility] External Department Unsolicited Start: 08-19-2024 End: 08-19-2024 Refill Brenda Ochoaeron WELDER EXPERIMENTAL Work Phone: [facility] Comment on above: Upper respiratory tr act infection, unspecified type (Primary Dx) Start: 08-17-2024 End: 08-17-2024 Orders Only Brenda Ochoaeron WELDER EXPERIMENTAL Work Phone: [facility] Comment on above: Subacute cough (Prim rizwan Dx); Upper respiratory tract infection, unspecified type Start: 08-04-2024 End: 08-04-2024 Bamboo flowsheet Brenda Ochoaeron WELDER EXPERIMENTAL Work Phone: [facility] Start: 08-04-2024 End: 08-04-2024 Bamboo flowsheet Brenda Ochoaeron WELDER EXPERIMENTAL Work Phone: [facility] Start: 08-04-2024 End: 08-04-2024 Office outpatient visit 15 minutes Brenda July WELDER EXPERIMENTAL Work Phone: [facility] Comment on above: Upper respiratory tr act infection, unspecified type (Primary Dx); Primary hypertension (CMS/HCC); Obesity with body mass index (BMI) of 30.0 to 39.9; Wellness examination; Prostate cancer screening; Impacted cerumen of left ear Start: 08-04-2024 End: 08-04-2024 Patient encounter status Brenda Mcdowell WELDER EXPERIMENTAL Work Phone: [facility] Healthcare Start: 08-04-2024 End: 08-04-2024 ambulatory BRENDA AICHHOLZ Not Available Start: 06-11-2024 End: 06-11-2024 ambulatory BRENDA AICHHOLZ Not Available Start: 06-11-2024 End: 06-11-2024 Office outpatient visit 15 minutes Brenda Mcdowell WELDER EXPERIMENTAL Work Phone: [facility] Comment on above: Primary hypertension (CMS/HCC) (Primary Dx); Obesity with body mass index (BMI) of 30.0 to 39.9; Essential (primary) hypertension (CMS/HCC) Start: 06-11-2024 End: 06-11-2024 Bamboo flowsheet Brenda Jassiz WELDER EXPERIMENTAL Work Phone: [facility] Start: 06-11-2024 End: 06-11-2024 Bamboo flowsheet Brenda Jassiz WELDER EXPERIMENTAL Work Phone: [facility] Start: 06-08-2024 End: 06-08-2024 Refill Brenda Mcdowell WELDER EXPERIMENTAL Work Phone: [facility] Comment on above: Essential (primary) hypertension (CMS/HCC) Start: 03-09-2024 End: 03-09-2024 ambulatory BRENDA AICHHOLZ Not Available Start: 01-23-2024 End: 01-23-2024 ambulatory BRENDA AICHHOLZ Not Available Start: 12-05-2023 End: 12-05-2023 ambulatory BRENDA AICHHOLZ Not Available Start: 07-19-2023 ambulatory Facility:[facility] Naida Procedures Date Procedure Procedure Detail Performing Clinician Start: 11-11-2024 NM DARNELL PERF SPECT RE ST STR Brendaluis alberto Mcdowell WELDER EXPERIMENTAL Work Phone: Start: 09-04-2024 ALL CBC WITH AUTO DIFF Brenda Mcdowell WELDER EXPERIMENTAL Work Phone: Start: 09-04-2024 [facility] MICROALB CREAT R ATIO RANDOM Brenda Mcdowell WELDER EXPERIMENTAL Work Phone: Plan of Treatment Date Care Activity Detail Author Start: 11-16-2024 End: 11-16-2024 Patient encounter procedure 11/16/2024 7:00 PM EDT Office Visit [facility] [address] [place] [address] Brenda Mcdowell, WELDER EXPERIMENTAL [address] [place] [phone] [facility] Start: 10-26-2024 End: 10-26-2024 Patient encounter procedure 10/26/2024 7:00 PM EST [facility] [address] [place] [address] Brenda Mcdowell, WELDER EXPERIMENTAL [address] [place] [phone] [facility] Start: 10-24-2024 Screening for malign ant neoplasm of colon Colorectal Cancer Screening [facility] Comment on above: Postponed from 09/09 (Patient Refused) Start: 09-30-2024 End: 09-30-2025 SPECT Heart perfusion NM heart perfusion SPECT stress and rest Imaging Routine Dyspnea on exertion LVH (left ventricular hypertrophy) Primary hypertension (CMS/HCC) Pulmonary artery hypertension (CMS/HCC) Family history of coronary artery disease Expected: 09/30/2024 (Approximate), Expires: 09/30/2025 [facility] Work Phone: Comment on above: Expected: 09/30/2024 (Approximate), Expires: 09/30/2025 Start: 09-14-2024 End: 09-14-2024 Patient encounter procedure [facility] Comment on above: Primary hypertension (CMS/HCC) (Primary Dx); Morbid (severe) obesity due to excess calories (CMS/HCC); Mixed hyperlipidemia (CMS/HCC); Body mass index (BMI) 39.0-39.9, adult Start: 09-14-2024 End: 09-14-2026 Echocardiogram 2D complete Echocardiogram 2D complete Echocardiography High Priority Mixed hyperlipidemia (CMS/HCC) Essential (primary) hypertension (CMS/HCC) Dyspnea on exertion Family history of coronary artery disease Expected: 09/14/2024 (Approximate), Expires: 09/14/2026 [facility] Healthcare Work Phone: Comment on above: Expected: 09/14/2024 (Approximate), Expires: 09/14/2026 Start: 08-17-2024 End: 08-17-2025 XR Chest 2 Views XR chest 2 views Imaging Routine Subacute cough Expected: 08/17/2024 (Approximate), Expires: 08/17/2025 [facility] Work Phone: Comment on above: Expected: 08/17/2024 (Approximate), Expires: 08/17/2025 Start: 08-04-2024 End: 08-04-2025 CBC W Auto Differential panel - Blood CBC and differential Lab Routine Wellness examination Expected: 08/04/2024 (Approximate), Expires: 08/04/2025 [facility] Comment on above: Expected: 08/04/2024 (Approximate), Expires: 08/04/2025 Start: 08-04-2024 End: 08-04-2025 Comprehensive metabolic 2000 panel - Serum or Plasma Comprehensive metabolic panel Lab Routine Wellness examination Expected: 08/04/2024 (Approximate), Expires: 08/04/2025 [facility] Comment on above: Expected: 08/04/2024 (Approximate), Expires: 08/04/2025 Start: 08-04-2024 End: 08-04-2025 Lipid 1996 panel - Serum or Plasma Lipid panel Lab Routine Wellness examination Expected: 08/04/2024 (Approximate), Expires: 08/04/2025 [facility] Comment on above: Expected: 08/04/2024 (Approximate), Expires: 08/04/2025 Start: 08-04-2024 End: 08-04-2025 Microalbumin/Creatinine panel in random Urine Microalbumin / creatinine, urine ratio Lab Routine Wellness examination Expected: 08/04/2024 (Approximate), Expires: 08/04/2025 [facility] Comment on above: Expected: 08/04/2024 (Approximate), Expires: 08/04/2025 Start: 08-04-2024 End: 08-04-2025 Prostate specific Ag [Mass/volume] in Serum or Plasma PSA Lab Routine Prostate cancer screening Expected: 08/04/2024 (Approximate), Expires: 08/04/2025 [facility] Work Phone: Comment on above: Expected: 08/04/2024 (Approximate), Expires: 08/04/2025 Start: 08-04-2024 End: 08-04-2025 Urinalysis complete panel - Urine Urinalysis with reflex microscopic (clean catch) Lab Routine Wellness examination Expected: 08/04/2024 (Approximate), Expires: 08/04/2025 [facility] Comment on above: Expected: 08/04/2024 (Approximate), Expires: 08/04/2025 Start: 08-04-2024 End: 08-04-2024 Patient encounter procedure 08/04/2024 9:00 AM EST Office Visit [facility] [address] [place] [address] Brenda Mcdowell, JULISSA [address] [place] [address] Primary hypertension (CMS/HCC) (Primary Dx); Obesity with body mass index (BMI) of 30.0 to 39.9; Wellness examination; Prostate cancer screening [facility] Comment on above: Primary hypertension (CMS/HCC) (Primary Dx); Obesity with body mass index (BMI) of 30.0 to 39.9; Wellness examination; Prostate cancer screening Start: 06-11-2024 End: 06-11-2024 Patient encounter procedure 06/11/2024 3:00 PM EDT Office Visit [facility] [address] [place] [address] Brenda Mcdowell, JULISSA [address] [place] [address] [facility] Start: 1965 Screening for malign ant neoplasm of colon [facility] Payers Date Payer Category Payer Private Health Insurance [id number] 2019 Private Health Insurance [id number] 1965 Unknown [id number] 1965 Unknown [id number] 2.16.84 [id number] 1965 Unknown [id number] 2.16.84 [id number] 1965 Unknown [id number] 2.16.84 [id number] 1965 Unknown [id number] 2.16.84 [id number] 1965 Unknown [id number] 2.16.84 [id number] 1965 Unknown [id number] Social History Date Type Detail Facility Start: 10-24-2023 Tobacco smoking stat [facility] Never smoked tobacco [facility] Start: 10-24-2023 Tobacco use and exposure Smokeless t obacco non-user [facility] Start: 01-23-2024 End: 03-09-2024 History of Social function [facility] Start: 01-23-2024 End: 03-09-2024 Tobacco use panel [facility] Start: 1965 Sex assigned at Not on file [facility] Clinical Notes 06-11-2024 to 09-14-2024 Brenda Mcdowell NP - 09/14/2024 7:44 PM Daily Mcdowell NP - 09/14/2024 7:41 [...] compliance problems. There is no history of CAD/CO, heart failure or PVD. SUBJECTIVE: MEDICATIONS: Current [...] History of kidney stones 10/24/2023 HTN (hypertension) ([facility]) 10/24/2023 Obesity with body mass index (BMI) [...] List Items Addressed This Visit HTN (hypertension) (CMS/[facility]) - Primary Please check blood pressure daily [...] sugary drinks. . Associated Problem(s): HTN (hypertension) (CMS/HCC) Please check blood pressure daily and record DASH diet Limit caffeine Take medication as directed Contact office if chest pain, pressure, dizziness, shortness of breath, swelling legs Recommend slow position changes Continue current meds: lisinopril, amlodipine Add asa documented in this encounter [facility] 09-14-2024 Instructions Brenda Mcdowell NP - 09/14/2024 7:00 PM EST Cough: Trial 3 weeks of cetirizine (zyrtec) 10mg daily, if cough not better, then stop this and trial 3 weeks of omeprazole (prilosec) 20mg daily Heart: ECHO (US of heart) will get approved with insurance and do at [facility] Cholesterol pill: atoravastatin ( lipitor) 20mg daily (take in the evening) if severe abd pain, yellowing of the skin muscle pain call me Add baby aspirin 81mg daily documented in this encounter [facility] 08-04-2024 History of Presen t illness [...] History of kidney stones 10/24/2023 HTN (hypertension) ([facility]) 10/24/2023 Obesity with body mass index (BMI) [...] List Items Addressed This Visit HTN (hypertension) ([facility]) Please check blood pressure daily and record [...] for weight loss. documented in this encounter [facility] 08-04-2024 Instructions Brenda Mcdowell NP - [...] fasting labs completed documented in this encounter [facility] 06-11-2024 History of Presen t illness Narrative [...] History of kidney stones 10/24/2023 HTN (hypertension) ([facility]) 10/24/2023 Obesity with body mass index (BMI) [...] 10 MG tablet documented in this encounter [facility] Evaluation note Diagnosis Essential (primary) hypertension (CMS/HCC) Unspecified essential hypertension [facility] Diagnosis Primary hypertension (CMS/HCC)- Primary Unspecified essential hypertension Obesity with body mass index (BMI) of 30.0 to 39.9 Essential (primary) hypertension (CMS/HCC) Unspecified essential hypertension documented in this encounter [facility]* Diagnosis Primary hypertension (CMS/HCC)- Primary [...] ear Impacted cerumen documented in this encounter [facility]* Diagnosis Primary hypertension (CMS/HCC)- Primary [...] unspecified type- Primary documented in this encounter [facility]* Diagnosis Primary hypertension (CMS/HCC)- Primary [...] Impacted cerumen [facility] [...] section and content) DATE CREATED AUTHOR 08/06/2023 [facility] DATE CREATED AUTHOR AUTHOR'S ORGANIZ ATION 11/18/2024 [facility] EPIC Reason for Visit (unrecogniz ed section and content) Reason Comments Med Refill Reason Comments Cough Reason Comments Hypertension Care Teams (unrecognized sec tion and content) Cell Lead Relationship Specialty Start Date End Date Chava Horne MD [address] [phone] PCP - General Family Medicine 10/21/23 Brenda Mcdowell NP [address] [place] [phone] Nurse Practitioner Family Medicine 09/02/22 Cell Lead Relationship Specialty Start Date End Date Chava Horne MD [address] [place] [phone] PCP - General Family Medicine 10/21/23 Brenda Mcdowell NP [address] [place] [phone] Nurse Practitioner Family Medicine 09/02/22 Cell Lead Relationship Specialty Start Date End Date Chava Horne MD [address] [place] [phone] PCP - General Family Medicine 10/21/23 Brenda Mcdowell NP [address] [place] [phone] Nurse Practitioner Family Medicine 09/02/22 Cell Lead Relationship Specialty Start Date End Date Chava Horne MD [address] [place] [phone] PCP - General Family Medicine 10/21/23 Brenda Mcdowell NP [address] [place] [phone] Nurse Practitioner Family Medicine 09/02/22 Cell Lead Relationship Specialty Start Date End Date Chava Horne MD [address] [place] [phone] PCP - General Family Medicine 10/21/23 Brenda Mcdowell NP [address] [place] [phone] Nurse Practitioner Family Medicine 09/02/22 Cell Lead Relationship Specialty Start Date End Date Chava Horne MD [address] [place] [phone] PCP - General Family Medicine 10/21/23 Brenda Mcdowell NP [address] [place] [phone] Nurse Practitioner Family Medicine 09/02/22 Cell Lead Relationship Specialty Start Date End Date Chava Horne MD [address] [place] [phone] PCP - General Family Medicine 10/21/23 Brenda Mcdowell NP [address] [place] [phone] Nurse Practitioner Family Medicine 09/02/22 Cell Lead Relationship Specialty Start Date End Date Chava Horne MD [address] [place] [phone] PCP - General Family Medicine 10/21/23 Brenda Mcdowell NP [address] [place] [phone] Nurse Practitioner Family Medicine 09/02/22 Cell Lead Relationship Specialty Start Date End Date Chava Horne MD [address] [place] [phone] PCP - General Family Medicine 10/21/23 Brenda Mcdowell NP [address] [place] [phone] Nurse Practitioner Family Medicine 09/02/22 Cell Lead Relationship Specialty Start Date End Date Chava Horne MD [address] [place] [phone] PCP - General Family Medicine 10/21/23 Brenda Mcdowell NP [address] [place] [address] Nurse Practitioner Family Medicine 09/02/22 Cell Lead Relationship Specialty Start Date End Date Chava Horne MD [address] [place] [phone] PCP - General Family Medicine 10/21/23 Brenda Mcdowell NP [address] [place] [address] Nurse Practitioner Family [facility] 09/02/22 Cell Lead Relationship Specialty Start Date End Date Chava Horne MD [address] [place] [phone] PCP - General [facility] 10/21/23 Brenda Mcdowell NP [address] [place] [phone] Nurse Practitioner [facility] 09/02/22 FOR RECORDS PERTAINING TO PATIENTS WHO [...] BE BASED ON THE PRIMARY CLINICAL RECORDS. [employer] provides no warranty or guarantee of the accuracy or completeness of information in this document.
== END 2024-11-20 07:47 | disposition home or self-care (01) ==
LOC: CARD 07:47
PROVIDERS: PCP Nurse Practitioner; Visit Provider Nurse Practitioner
DX: I49.3 Ventricular premature depolarization (principal)
CPT/HCPCS: 93242

== ENCOUNTER 2025-04-11 22:21 | Emergency (ER) | payer OTHER, SELFPAY ==
--- OUTSIDE RECORDS SUMMARY | 2025-04-11 22:28 | XMS_ITS | CCD ---
Author Organization [facility] Care Team Providers Care Translational Specialist Name Role Phone July GIS GEOGRAPHER, Brenda Unavailable Chava Horne MD Primary Care Provider [phone] JULY BRENDA Attending Unavailable JULY, BRENDA Attending Unavailable LOUIEHHOLZ, BRENDA Attending Unavailable LOUIEHHOLZ, BRENDA Attending Unavailable AICHHOLZ, BRENDA Attending Unavailable LOUIEHHOLZ, BRENDA Attending Unavailable JASSIZ, BRENDA Attending Unavailable Medications Current Medications Medication Drug Class(es) Dates Sig (Normalized) Sig (Original) amLODIPine 10 mg oral tablet (20 sources) Dihydropyridine Calcium Channel Holli Start: 03-09-2024 End: 06-15-2025 take 1 tablet by mouth once daily amLODIPine (Norvasc) 10 MG tablet Indications: Essential (primary) hypertension Take 1 tablet (10 mg) by mouth Daily 90 tablet 1 03/17/2025 06/15/2025 Active atorvastatin 20 mg oral tablet (13 sources) HMG-CoA Reductase Inhibitor Start: 09-14-2024 End: 03-15-2025 take 1 tablet by mouth at bedtime atorvastatin (Lipitor) 20 MG tablet Indications: Mixed hyperlipidemia Take 1 tablet (20 mg) by mouth at bedtime 90 tablet 1 12/15/2024 Active benzonatate 200 mg oral capsule (5 sources) Non-narcotic Antitussive Start: 08-04-2024 End: 08-24-2024 take 1 capsule by mouth every eight hours for cough benzonatate (Tessalon) 200 MG capsule Indications: Upper respiratory tract infection, unspecified type Take 1 capsule (200 mg) by mouth every 8 (eight) hours if needed for cough for up to 7 days Take with full glass of water. Do not crush or chew. 21 capsule 08/17/2024 08/24/2024 Active lisinopril 20 mg oral tablet (20 sources) Angiotensin Converting Enzyme Inhibitor Start: 11-16-2024 End: 02-14-2025 take 1 tablet by mouth in the morning lisinopril 20 MG tablet Indications: Primary hypertension Take 1 tablet (20 mg) by mouth in the morning and 1 tablet (20 mg) before bedtime. 180 tablet 1 11/16/2024 Active Start: 03-09-2024 End: 2024 take 1 tablet by mouth in the morning lisinopril 20 MG tablet Indications: Primary hypertension (CMS/HCC) Take 1 tablet (20 mg) by mouth in the morning and 1 tablet (20 mg) before bedtime. 180 tablet 1 06/11/2024 Active methylPREDNISolone (1 source) Corticosteroid Start: 08-19-2024 End: 08-26-2024 methylPREDNISolone (Medrol Dospak) 4 MG tablets Indications: Upper respiratory tract infection, unspecified type Follow schedule on package instructions 21 tablet 08/19/2024 08/26/2024 Active 24 hr metoprolol succinate 25 mg extended release oral tablet (7 sources) beta-Adrenergic Holli Start: 12-21-2024 End: 06-15-2025 take 1 tablet by mouth once daily metoprolol succinate XL (Toprol-XL) 25 MG 24 hr tablet Indications: Primary hypertension , Frequent PVCs Take 1 tablet (25 mg) by mouth Daily Do not crush or chew. 90 tablet 1 03/17/2025 06/15/2025 Active naproxen sodium 220 mg oral capsule (20 sources) Nonsteroidal Anti-inflammatory Drug take 1 capsule [...] Classification Problem Date Documented Da te Episodic/Chronic Cardiac dysrhythmias (13 sources) Multiple premature ventricular complexes; Translations: [Ventricular premature depolarization] Onset: 11-16-2024 11-16-2024 Chronic Disorders of lipid metabolism (18 sources) Mixed hyperlipidemia; Translations: [Mixed hyperlipidemia] Onset: 09-04-2024 09-04-2024 Chronic Essential hypertension (20 sources) Essential hypertension; Translations: [Essential (primary) hypertension] Onset: 10-24-2023 06-08-2024 Chronic Hyperplasia of prostate (20 sources) Large prostate ; Translations: [Benign prostatic hyperplasia without lower urinary tract symptoms] Onset: 10-24-2023 10-24-2023 Chronic Other and ill-defined heart disease (12 sources) Left ventricular hypertrophy; Translations: [Cardiomegaly] Onset: 09-25-2024 09-30-2024 Chronic Other lower respiratory disease (11 sources) Cough; Translations: [Subacute cough] Onset: 08-17-2024 08-17-2024 Episodic Other nutritional; endocrine; and metabolic disorders (20 sources) Body mass index 30+ - obesity; Translations: [Obesity, unspecified] Onset: 10-24-2023 10-24-2023 Chronic Other nutritional; endocrine; and metabolic disorders (19 sources) Obesity caused by energy imbalance; Translations: [Morbid (severe) obesity due to excess calories] Onset: 09-14-2024 09-14-2024 Chronic Other screening for suspected conditions (not mental disorders or infectious disease) (20 sources) Patient encounter status; Translations: [Encounter for screening for malignant neoplasm of prostate] Onset: 01-08-2024 01-08-2024 Episodic Pulmonary heart disease (12 sources) Pulmonary arterial hypertension; Translations: [Secondary pulmonary arterial hypertension] Onset: 09-25-2024 09-30-2024 Chronic Past or Other Problems Problem Classification Problem Date Documented Da te Episodic/Chronic Calculus of urinary tract (20 sources) History of calculus of kidney; Translations: [Personal history of urinary calculi] Onset: 10-24-2023 10-24-2023 Episodic Cardiac and circulatory congenital anomalies (10 sources) Congenital hypoplasia of pulmonary artery; 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] Onset: 09-25-2024 Resolved: 09-25-2024 09-25-2024 Chronic Disorders of teeth and jaw (20 sources) Toothache; Translations: [Other specified disorders of teeth and supporting structures] Onset: 01-23-2024 Resolved: 08-04-2024 01-23-2024 Episodic Mycoses (20 sources) Onychomycosis; Translations: [Tinea unguium] Onset: 03-09-2024 03-09-2024 Episodic Other ear and sense organ disorders (20 sources) Impacted cerumen in left ear; Translations: [Impacted cerumen, left ear] Onset: 08-04-2024 08-04-2024 Episodic Other gastrointestinal disorders (20 sources) Heartburn; Translations: [Heartburn] Onset: 10-24-2023 10-24-2023 Episodic Other lower respiratory disease (18 sources) Dyspnea on exertion; Translations: [Other forms of dyspnea] Onset: 09-14-2024 09-14-2024 Episodic Other lower respiratory disease (8 sources) Cough; Translations: [Subacute cough] Onset: 08-17-2024 08-17-2024 Episodic Other upper respiratory infections (20 sources) Upper respiratory infection; Translations: [Acute upper respiratory infection, unspecified] Onset: 08-04-2024 Resolved: 11-16-2024 08-04-2024 Episodic Residual codes; unclassified (18 sources) Family history of coronary arteriosclerosis; Translations: [Family history of ischemic heart disease and other diseases of the circulatory system] Onset: 09-14-2024 09-14-2024 Episodic Results Test Name Value Interpretation Reference Range Facility NM DARNELL PERF SPECT REST STRon 11-11-2024 [place] [address] Nuclear Medicine Report Signed Patient: KEYON ZUNIGA MR#: [id number] : 1965 Acct:[id number] Age/Sex: 59 / M ADM Date: 11/06/24 Loc: [place] Attending Dr: Brenda Mcdowell NP Ordering Physician: Brenda Mcdowell NP Date of Service: 11/06/24 Procedure(s): NM darnell perf SPECT rest str Accession Number(s): [id number] cc: Brenda Mcdowell NP Patient Name: KEYON JAMIL I MR#: [id number] : 1965 Exam Date: 11/06/2024 Ordering Doctor: [...] the study was pending per attending physician [facility] . For more details, please see separate [...] Signed By: 11/11/24 1220 DD/ 1219 TD/TT: Clinical Sociologist: [facility] Radiology, Radiologist, MD - 11/11/2024 [place] [address] Nuclear Medicine Report Signed Patient: KEYON ZUNIGA MR#: [id number] : 1965 Acct:[id number] Age/Sex: 59 / M ADM Date: 11/06/24 Loc: NM Attending Dr: Brenda Mcdowell NP Ordering Physician: Brenda Mcdowell NP Date of Service: 11/06/24 Procedure(s): NM darnell perf SPECT rest str Accession Number(s): [id number] cc: Brenda Mcdowell NP Patient Name: KEYON JAMIL I MR#: [id number] : 1965 Exam Date: 11/06/2024 Ordering Doctor: [...] the study was pending per attending physician [facility] . For more details, please see separate [...] Signed By: 11/11/24 1220 DD/ 1219 TD/TT: Clinical Sociologist: [facility] Radiology Study observation (narrative) [facility] NM DARNELL PERF SPECT REST STROr dered By: Radiologist Radiology [facility]11-2024 [facility] Work Phone: ALL CBC WITH AUTO DIFFon BASOPHILS ABSOLUTE AUTO 0.[address] [facility] Basophils/100 WBC (Bld) 0.7 % 0.2 - 2.0 % [facility] Eosinophils/100 WBC (Bld) 3.1 % 0.9 - 7.0 % [facility] Erythrocyte distribution width (RBC) [Ratio] 13.2 % 11.0 - 15.0 % [facility] Hematocrit (Bld) [Volume fraction] 49.2 % 42.0 - 54.0 % [facility] Hemoglobin (Bld) [Mass/Vol] 16.3 g/dL 14.0 - 18.0 g/dL [facility] IMMATURE GRANULOCYTES ABS AUTO 0.[address] [facility] Immature granulocytes/100 WBC (Bld) 0.5 % 0.0 - 0.5 % [facility] Interpretation and review of laboratory results Abnormal [facility] LYMPHOCYTES ABSOLUTE AUTO 2.[address] [facility] Lymphocytes/100 WBC (Bld) 27.6 % 20.5 - 60.0 % [facility] MCH (RBC) [Entitic mass] 29.1 pg 25.9 - 34.[address] [facility] MCHC (RBC) [Mass/Vol] 33.1 g/dL 29.9 - 35.2 g/dL [facility] MCV (RBC) [Entitic vol] 87.7 fL 80.0 - 94.[address] [facility] MONOCYTES ABSOLUTE AUTO 0.[address] [facility] Monocytes/100 WBC (Bld) 8.6 % 1.7 - 12.0 % [facility] NEUTROPHILS ABSOLUTE AUTO 5.[address] [facility] Neutrophils/100 WBC (Bld) 59.5 % 43.0 - 75.0 % [facility] Platelet mean volume (Bld) [Entitic vol] 11.1 fL 9.5 - 13.5 fL [facility] EO # 0.3 [facility] PLT 248 [facility] RBC 5.61 [facility] WBC 8.7 [facility] MICROALB CREAT RATIO RAN DOMon 09-04-2024 CREATININE URINE RANDOM 78.54 mg/dL 20.00 - 300.00 mg/dL [facility] MICROALBUM CREATININE RATIO UR 22.9 mg/g 0.0 - 29.9 mg/g [facility] Comment on above: NO MICROALBUMINURIA 0-29 MG/G CLINICAL MICROALBUMINURIA 30-300 MG/G MACROALBUMINURIA >300 MG/G MICROALBUMIN URINE RANDOM 1.8 mg/dL NINF - 30.0 mg/dL [facility] Provider Letteron 08-05-2023 Provider Letter August 05, 2023 KEYON JAMIL [address] [place] [id number] : 1965 Dear Mr. Jamil, We have [...] your prompt attention to this matter. Sincerely, [facility] General Surgery [phone] Normal [facility] Physician Referralon 023 Physician Referral [id number] [facility] Vital Signs Date Time Vital Sign Value Performing Clinician Faci lity 02-10-2025 17:26-0400 Body mass index (BMI) [Ratio] 40.21 kg/m2 Brenda Mcdowell GIS GEOGRAPHER Work Phone: [facility] 02-10-2025 17:26-0400 Body temperature 97.81 [degF] Brenda Mcdowell GIS GEOGRAPHER Work Phone: [facility] 02-10-2025 17:26-0400 Body weight 102.97 kg Brenda Aichholz GIS GEOGRAPHER Work Phone: [facility] 02-10-2025 17:26-0400 Diastolic blood pressure 90 mm[Hg] Brenda Aichholz GIS GEOGRAPHER Work Phone: [facility] 02-10-2025 17:26-0400 Heart rate 83 /min Brenda Aichholz GIS GEOGRAPHER Work Phone: [facility] 02-10-2025 17:26-0400 Respiratory rate 18 /min Brenda Aichholz GIS GEOGRAPHER Work Phone: [facility] 02-10-2025 17:26-0400 SaO2% (BldA) [Mass fraction] 96 % Brenda Aichholz GIS GEOGRAPHER Work Phone: [facility] 02-10-2025 17:26-0400 Systolic blood pressure 128 mm[Hg] Brenda Aichholz GIS GEOGRAPHER Work Phone: [facility] 12-21-2024 08:23-0400 Body mass index (BMI) [Ratio] 41.52 kg/m2 Brenda Aichholz GIS GEOGRAPHER Work Phone: [facility] 12-21-2024 08:23-0400 Body temperature 98.6 [degF] Brenda Louiehholz GIS GEOGRAPHER Work Phone: [facility] 12-21-2024 08:23-0400 Body weight 106.32 kg Brenda Aichholz GIS GEOGRAPHER Work Phone: [facility] 12-21-2024 08:23-0400 Diastolic blood pressure 96 mm[Hg] Brenda Aichholz GIS GEOGRAPHER Work Phone: [facility] 12-21-2024 08:23-0400 Heart rate 85 /min Brenda Aichholz GIS GEOGRAPHER Work Phone: [facility] 12-21-2024 08:23-0400 Respiratory rate 20 /min Brenda Aichholz GIS GEOGRAPHER Work Phone: [facility] 12-21-2024 08:23-0400 SaO2% (BldA) [Mass fraction] 96 % Brenda Louiehholz GIS GEOGRAPHER Work Phone: [facility] 12-21-2024 08:23-0400 Systolic blood pressure 140 mm[Hg] Brenda Jassiz GIS GEOGRAPHER Work Phone: [facility] 09-14-2024 18:42-0500 Body mass index (BMI) [Ratio] 41.42 kg/m2 Brenda Zeldaholz GIS GEOGRAPHER Work Phone: [facility] 09-14-2024 18:42-0500 Body temperature 98.8 [degF] Brenda Zeldaholz GIS GEOGRAPHER Work Phone: [facility] 09-14-2024 18:42-0500 Body weight 106.05 kg Brenda Jassiz GIS GEOGRAPHER Work Phone: [facility] 09-14-2024 18:42-0500 Diastolic blood pressure 96 mm[Hg] Brenda Jassiz GIS GEOGRAPHER Work Phone: [facility] 09-14-2024 18:42-0500 Heart rate 100 /min Brenda Jassiz GIS GEOGRAPHER Work Phone: [facility] 09-14-2024 18:42-0500 Respiratory rate 20 /min Brenda Jassiz GIS GEOGRAPHER Work Phone: [facility] 09-14-2024 18:42-0500 SaO2% (BldA) [Mass fraction] 94 % Brenda Zeldaholz GIS GEOGRAPHER Work Phone: [facility] 09-14-2024 18:42-0500 Systolic blood pressure 130 mm[Hg] Brenda Jassiz GIS GEOGRAPHER Work Phone: [facility] 08-04-2024 08:56-0500 Body mass index (BMI) [Ratio] 38.48 kg/m2 Brenda Zeldaholz GIS GEOGRAPHER Work Phone: [facility] 08-04-2024 08:56-0500 Body temperature 98.49 [degF] Brenda Zeldaholz GIS GEOGRAPHER Work Phone: [facility] 08-04-2024 08:56-0500 Body weight 98.52 kg Brenda Aichholz GIS GEOGRAPHER Work Phone: [facility] 08-04-2024 08:56-0500 Diastolic blood pressure 90 mm[Hg] Brenda Aichholz GIS GEOGRAPHER Work Phone: [facility] 08-04-2024 08:56-0500 Heart rate 68 /min Brenda Aichholz GIS GEOGRAPHER Work Phone: [facility] 08-04-2024 08:56-0500 SaO2% (BldA) [Mass fraction] 97 % Brenda Aichholz GIS GEOGRAPHER Work Phone: [facility] 08-04-2024 08:56-0500 Systolic blood pressure 138 mm[Hg] Brenda Aichholz GIS GEOGRAPHER Work Phone: [facility] 06-11-2024 15:05-0400 Body height 160 cm Brenda Aichholz GIS GEOGRAPHER Work Phone: [facility] 06-11-2024 15:05-0400 Body mass index (BMI) [Ratio] 39.57 kg/m2 Brenda Aichholz GIS GEOGRAPHER Work Phone: [facility] 06-11-2024 15:05-0400 Body temperature 98.71 [degF] Brenda Aichholz GIS GEOGRAPHER Work Phone: [facility] 06-11-2024 15:05-0400 Body weight 101.33 kg Brenda Aichholz GIS GEOGRAPHER Work Phone: [facility] 06-11-2024 15:05-0400 Diastolic blood pressure 98 mm[Hg] Brenda Aichholz GIS GEOGRAPHER Work Phone: [facility] 06-11-2024 15:05-0400 Heart rate 110 /min Brenda Aichholz GIS GEOGRAPHER Work Phone: [facility] 06-11-2024 15:05-0400 Respiratory rate 19 /min Brenda Aichholz GIS GEOGRAPHER Work Phone: [facility] 06-11-2024 15:05-0400 SaO2% (BldA) [Mass fraction] 95 % Brenda Louielindsayeron GIS GEOGRAPHER Work Phone: [facility] 06-11-2024 15:05-0400 Systolic blood pressure 132 mm[Hg] Brenda Louielindsayeron GIS GEOGRAPHER Work Phone: [facility] Healthcare Encounters Encounter Date Encounter Type Care Provider Facility Start: 03-17-2025 End: 03-17-2025 Refill Brenda Louielindsayeron GIS GEOGRAPHER Work Phone: [facility] Comment on above: Primary hypertension ; Frequent PVCs; Essential (primary) hypertension Start: 02-10-2025 End: 02-10-2025 Office outpatient visit 15 minutes Brenda July GIS GEOGRAPHER Work Phone: [facility] Comment on above: Primary hypertension (Primary Dx); Frequent PVCs; Morbid (severe) obesity due to excess calories (CMS/HCC); Colon cancer screening Start: 02-10-2025 End: 02-10-2025 ambulatory BRENDA JULY Not Available Start: 02-10-2025 End: 02-10-2025 Bamboo flowsheet Brenda July GIS GEOGRAPHER Work Phone: [facility] Start: 02-10-2025 End: 02-10-2025 Bamboo flowsheet Brenda July GIS GEOGRAPHER Work Phone: [facility] Start: 12-21-2024 End: 12-21-2024 Bamboo flowsheet Brenda July GIS GEOGRAPHER Work Phone: [facility] Start: 12-21-2024 End: 12-21-2024 Bamboo flowsheet Brenda July GIS GEOGRAPHER Work Phone: [facility] Start: 12-21-2024 End: 12-21-2024 Office outpatient visit 15 minutes Brendaluis alberto Mcdowell GIS GEOGRAPHER Work Phone: [facility] Comment on above: Primary hypertension (CMS/HCC) (Primary Dx); Frequent PVCs; Morbid (severe) obesity due to excess calories (CMS/HCC); Body mass index (BMI) 39.0-39.9, adult Start: 12-21-2024 End: 12-21-2024 ambulatory BRENDA AICHHOLZ Not Available Start: 12-15-2024 End: 12-15-2024 Refill Brenda Aiclindsayholz GIS GEOGRAPHER Work Phone: [facility] Comment on above: Essential (primary) hypertension (CMS/HCC); Mixed hyperlipidemia (CMS/HCC) Start: 11-16-2024 End: 11-16-2024 ambulatory BRENDA AICHHOLZ Not Available Start: 11-11-2024 End: 11-11-2024 [facility] Result Encounter Brenda Zeldaholz GIS GEOGRAPHER Work Phone: [facility] External Department Unsolicited Start: 11-11-2024 End: 11-11-2024 [facility] Result Encounter Brenda Zeldaholz GIS GEOGRAPHER Work Phone: [facility] External Department Unsolicited Start: 09-30-2024 End: 09-30-2024 Orders Only Brenda Zeldaholz GIS GEOGRAPHER Work Phone: [facility] Comment on above: Dyspnea on exertion (Primary Dx); LVH (left ventricular hypertrophy); Primary hypertension (CMS/HCC); Pulmonary artery hypertension (CMS/HCC); Family history of coronary artery disease Start: 09-14-2024 End: 09-14-2024 Office outpatient visit 25 minutes Brenda Arenasz GIS GEOGRAPHER Work Phone: [facility] Comment on above: Primary hypertension (CMS/HCC) (Primary Dx); Morbid (severe) obesity due to excess calories (CMS/HCC); Mixed hyperlipidemia (CMS/HCC); Body mass index (BMI) 39.0-39.9, adult; Essential (primary) hypertension (CMS/HCC); Subacute cough; Dyspnea on exertion; Family history of coronary artery disease; Impacted cerumen of left ear Start: 09-14-2024 End: 09-14-2024 ambulatory BRENDA AICHHOLZ Not Available Start: 09-14-2024 End: 09-14-2024 Bamboo flowsheet Brenda Aichholz GIS GEOGRAPHER Work Phone: [facility] Start: 09-14-2024 End: 09-14-2024 Bamboo flowsheet Brenad Mcdowell GIS GEOGRAPHER Work Phone: [facility] Start: 09-04-2024 End: 09-04-2024 [facility] Result Encounter Brenda Mcdowell GIS GEOGRAPHER Work Phone: [facility] External Department Unsolicited Start: 09-04-2024 End: 09-04-2024 [facility] Result Encounter Brenda Mcdowell GIS GEOGRAPHER Work Phone: [facility] External Department Unsolicited Start: 08-19-2024 End: 08-19-2024 Refill Brenda Mcdowell GIS GEOGRAPHER Work Phone: [facility] Comment on above: Upper respiratory tr act infection, unspecified type (Primary Dx) Start: 08-17-2024 End: 08-17-2024 Orders Only Brenda Mcdowell GIS GEOGRAPHER Work Phone: [facility] Comment on above: Subacute cough (Prim rizwan Dx); Upper respiratory tract infection, unspecified type Start: 08-04-2024 End: 08-04-2024 Bamboo flowsheet Brenda Mcdowell GIS GEOGRAPHER Work Phone: [facility] Start: 08-04-2024 End: 08-04-2024 Bamboo flowsheet Brenda Mcdowell GIS GEOGRAPHER Work Phone: [facility] Start: 08-04-2024 End: 08-04-2024 Office outpatient visit 15 minutes Brenda Mcdowell GIS GEOGRAPHER Work Phone: [facility] Comment on above: Upper respiratory tr act infection, unspecified type (Primary Dx); Primary hypertension (CMS/HCC); Obesity with body mass index (BMI) of 30.0 to 39.9; Wellness examination; Prostate cancer screening; Impacted cerumen of left ear Start: 08-04-2024 End: 08-04-2024 Patient encounter status Brenda cMdowell GIS GEOGRAPHER Work Phone: [facility] Start: 08-04-2024 End: 08-04-2024 ambulatory BRENDA ZELDAHOLZ Not Available Start: 06-11-2024 End: 06-11-2024 ambulatory BRENDA ZELDAHOLZ Not Available Start: 06-11-2024 End: 06-11-2024 Office outpatient visit 15 minutes Brenad Mcdowell GIS GEOGRAPHER Work Phone: [facility] Comment on above: Primary hypertension (CMS/HCC) (Primary Dx); Obesity with body mass index (BMI) of 30.0 to 39.9; Essential (primary) hypertension (CMS/HCC) Start: 06-11-2024 End: 06-11-2024 Bamboo flowsheet Brenda Mcdowell GIS GEOGRAPHER Work Phone: [facility] Start: 06-11-2024 End: 06-11-2024 Bamboo flowsheet Brenda Mcdowell GIS GEOGRAPHER Work Phone: [facility] Start: 06-08-2024 End: 06-08-2024 Refill Brenda July GIS GEOGRAPHER Work Phone: [facility] Comment on above: Essential (primary) hypertension (CMS/HCC) Start: 03-09-2024 End: 03-09-2024 ambulatory BRENDA ZELDAHOLZ Not Available Start: 07-19-2023 ambulatory Facility:[facility] Procedures Date Procedure Procedure Detail Performing Clinician Start: 11-11-2024 NM DARNELL PERF SPECT RE ST STR Brenda Mcdowell GIS GEOGRAPHER Work Phone: Start: 09-04-2024 ALL CBC WITH AUTO DIFF Brenda Mcdowell GIS GEOGRAPHER Work Phone: Start: 09-04-2024 [facility] MICROALB CREAT R ATIO RANDOM Brenda Mcdowell GIS GEOGRAPHER Work Phone: Plan of Treatment Date Care Activity Detail Author Start: 05-24-2025 End: 05-24-2025 Patient encounter procedure 05/24/2025 2:00 PM EDT Office Visit [facility] [address] [place] [phone] Brenda Mcdowell, JULISSA [address] [place] [phone] [facility] Start: 02-10-2025 End: 02-10-2025 Patient encounter procedure [facility] Comment on above: Primary hypertension (Primary Dx); Frequent PVCs; Morbid (severe) obesity due to excess calories (CMS/HCC) Start: 02-10-2025 End: 02-10-2026 Noninvasive colorectal cancer DNA and occult blood screening [Presence] in Stool Cologuard colon cancer screening Lab Routine Colon cancer screening Expected: 02/10/2025 (Approximate), Expires: 02/10/[address] [facility] Work Phone: Comment on above: Expected: 02/10/2025 (Approximate), Expires: 02/10/2026 Start: 12-21-2024 End: 12-21-2024 Patient encounter procedure [facility] Comment on above: Primary hypertension (CMS/HCC) (Primary Dx); Frequent PVCs; Morbid (severe) obesity due to excess calories (CMS/HCC); Body mass index (BMI) 39.0-39.9, adult Start: 11-16-2024 End: 11-16-2024 Patient encounter procedure 11/16/2024 7:00 PM EDT Office Visit [facility] [address] [place] [phone] Brenda Mcdowell, JULISSA [address] [place] [phone] [facility] Start: 10-26-2024 End: 10-26-2024 Patient encounter procedure 10/26/2024 7:00 PM EST Office Visit [facility] [address] [place] [phone] Brenda Mcdowell, JULISSA [address] [place] [address] [facility] Start: 10-24-2024 Screening for malign ant neoplasm of colon Colorectal Cancer Screening [facility] Comment on above: Postponed from 09/09 (Patient Refused) Start: 09-30-2024 End: 09-30-2025 SPECT Heart perfusion NM heart perfusion SPECT stress and rest Imaging Routine Dyspnea on exertion LVH (left ventricular hypertrophy) Primary hypertension (CMS/HCC) Pulmonary artery hypertension (CMS/HCC) Family history of coronary artery disease Expected: 09/30/2024 (Approximate), Expires: 09/30/2025 [facility] [employer] Work Phone: Comment on above: Expected: 09/30/2024 (Approximate), Expires: 09/30/2025 Start: 09-14-2024 End: 09-14-2024 Patient encounter procedure [facility] Comment on above: Primary hypertension (CMS/HCC) (Primary Dx); Morbid (severe) obesity due to excess calories (CMS/HCC); Mixed hyperlipidemia (CMS/HCC); Body mass index (BMI) 39.0-39.9, adult Start: 09-14-2024 End: 09-14-2026 Echocardiogram 2D complete Echocardiogram 2D complete Echocardiography High Priority Mixed hyperlipidemia (CMS/HCC) Essential (primary) hypertension (CMS/HCC) Dyspnea on exertion Family history of coronary artery disease Expected: 09/14/2024 (Approximate), Expires: 09/14/2026 [facility] [employer] Work Phone: Comment on above: Expected: 09/14/2024 (Approximate), Expires: 09/14/2026 Start: 08-17-2024 End: 08-17-2025 XR Chest 2 Views XR chest 2 views Imaging Routine Subacute cough Expected: 08/17/2024 (Approximate), Expires: 08/17/2025 [facility] [employer] Work Phone: Comment on above: Expected: 08/17/2024 (Approximate), Expires: 08/17/2025 Start: 08-04-2024 End: 08-04-2025 CBC W Auto Differential panel - Blood CBC and differential Lab Routine Wellness examination Expected: 08/04/2024 (Approximate), Expires: 08/04/[address] [facility] Comment on above: Expected: 08/04/2024 (Approximate), Expires: 08/04/2025 Start: 08-04-2024 End: 08-04-2025 Comprehensive metabolic 2000 panel - Serum or Plasma Comprehensive metabolic panel Lab Routine Wellness examination Expected: 08/04/2024 (Approximate), Expires: 08/04/[address] [facility] Comment on above: Expected: 08/04/2024 (Approximate), Expires: 08/04/2025 Start: 08-04-2024 End: 08-04-2025 Lipid 1996 panel - Serum or Plasma Lipid panel Lab Routine Wellness examination Expected: 08/04/2024 (Approximate), Expires: 08/04/[address] [facility] Comment on above: Expected: 08/04/2024 (Approximate), Expires: 08/04/2025 Start: 08-04-2024 End: 08-04-2025 Microalbumin/Creatinine panel in random Urine Microalbumin / creatinine, urine ratio Lab Routine Wellness examination Expected: 08/04/2024 (Approximate), Expires: 08/04/[address] [facility] Comment on above: Expected: 08/04/2024 (Approximate), Expires: 08/04/2025 Start: 08-04-2024 End: 08-04-2025 Prostate specific Ag [Mass/volume] in Serum or Plasma PSA Lab Routine Prostate cancer screening Expected: 08/04/2024 (Approximate), Expires: 08/04/[address] [facility] Work Phone: Comment on above: Expected: 08/04/2024 (Approximate), Expires: 08/04/2025 Start: 08-04-2024 End: 08-04-2025 Urinalysis complete panel - Urine Urinalysis with reflex microscopic (clean catch) Lab Routine Wellness examination Expected: 08/04/2024 (Approximate), Expires: 08/04/[address] [facility] Comment on above: Expected: 08/04/2024 (Approximate), Expires: 08/04/2025 Start: 08-04-2024 End: 08-04-2024 Patient encounter procedure 08/04/2024 9:00 AM EST Office Visit [facility] [address] [place] [address] Brenda Mcdowell NP [address] [place] [phone] Primary hypertension (CMS/HCC) (Primary Dx); Obesity with body mass index (BMI) of 30.0 to 39.9; Wellness examination; Prostate cancer screening [facility] Comment on above: Primary hypertension (CMS/HCC) (Primary Dx); Obesity with body mass index (BMI) of 30.0 to 39.9; Wellness examination; Prostate cancer screening Start: 06-11-2024 End: 06-11-2024 Patient encounter procedure 06/11/2024 3:00 PM EDT Office Visit [facility] [address] [place] [address] Brenda Mcdowell NP [address] [place] [phone] [facility] Start: 1965 Screening for malign ant neoplasm of colon [facility] Payers Date Payer Category Payer Private Health Insurance [id number] 2019 Private Health Insurance [id number] 1965 Unknown [id number] 1965 Unknown [id number] 1965 Unknown [id number] 2.16.84 [id number] 1965 Unknown [id number] 1965 Unknown [id number] [id number] [id number] 1965 Unknown [id number] 1965 Unknown [id number] Social History Date Type Detail Facility Start: 10[facility]24-[facility]23 [facility] Start: 10-24-2023 Tobacco use and exposure Smokeless t obacco non-user [facility] Start: 03-09-2024 End: 02-10-2025 History of Social function [facility] Start: 03-09-2024 End: 02-10-2025 Tobacco use panel [facility] Start: 1965 Sex assigned at Not on file [facility] Clinical Notes 06-11-2024 to 02-10-2025 Brenda Mcdowell NP - 02/10/2025 5:45 PM EDHEATHER BLACK - 02/10/2025 5:30 PM Yunior Mcdowell NP - 02/10/2025 5:30 PM Yunior Mcdowell NP - 02/10/2025 7:43 AM EDTPatient Instructions Note Date & Type Note Facility 02-10-2025 History of Presen t illness Narrative Associated Problem(s): Colon cancer screening Colon cancer screening options were discussed with patient, as well as why colon cancer screening is indicated. Options are Colonoscopy: direct visualization, every 10 years (unless indicated more frequently), risks and benefits were discussed Cologuard: every 3 years, risks and benefits were discussed , contraindications were discussed (family hx of colon cancer, colon polyps) Patient has elected to: cologuard Pt is needing a refill on all his medications or at least new prescriptions after picking their next prescription up Discussed what possibilities could raise BP one being caffeine- he drinks 2 pots of coffee daily and sweat tea Images from the original note were not included. Keyon Jamil is a 59 y.o. male presents with chief complaint of Hypertension HPI: Hypertension This is a chronic problem. The current episode started more than 1 year ago. The problem has been gradually improving since onset. The problem is controlled. Associated symptoms include peripheral edema. Pertinent negatives include no blurred vision, chest pain, palpitations or shortness of breath. There are no associated agents to hypertension. Risk factors for coronary artery disease include obesity and male gender. Past treatments include beta blockers, calcium channel blockers and angiotensin blockers. The current treatment provides significant improvement. There are no compliance problems. There is no history of CAD/LA, heart failure or PVD. SUBJECTIVE: MEDICATIONS: Current Outpatient Medications Medication Instructions amLODIPine (NORVASC) 10 mg, Oral, Daily atorvastatin (LIPITOR) 20 mg, Oral, Nightly lisinopril 20 mg, Oral, 2 times daily metoprolol succinate XL (TOPROL-XL) 25 mg, Oral, Daily, Do not crush or chew. Naproxen Sodium (Aleve) 220 MG capsule 1 capsule, 2 times daily ALLERGIES: No Known Allergies REVIEW OF SYMPTOMS: Review of Systems Constitutional: Negative for activity change, appetite change and unexpected weight change. HENT: Negative for ear pain, nosebleeds, sneezing, trouble swallowing and voice change. Eyes: Negative for blurred vision, pain, discharge and visual disturbance. Respiratory: Negative for apnea, chest tightness, shortness of breath and wheezing. Cardiovascular: Positive for leg swelling. Negative for chest pain and palpitations. Gastrointestinal: Negative for abdominal distention, blood in [...] History of kidney stones 10/24/2023 HTN (hypertension) 10/24/2023 Obesity with body mass index (BMI) [...] his maternal grandmother. OBJECTIVE: Visit Vitals BP 128/90 (BP Location: Left arm, Patient Position: Sitting, BP Cuff Size: Large adult) Pulse 83 Temp 97.8 F (Temporal) Resp 18 Wt 227 lb SpO2 96% BMI 40.21 kg/m Smoking Status Never BSA 2.14 m Physical Exam Vitals and nursing note [...] Normal pulses. Heart sounds: Normal heart sounds. No murmur heard. Pulmonary: Effort: Pulmonary effort is normal. Breath sounds: Normal breath sounds. No wheezing or rhonchi. Abdominal: General: Bowel sounds are normal. Palpations: Abdomen is soft. Musculoskeletal: Cervical back: Neck supple. Right lower leg: Edema present. Left lower leg: Edema present. Comments: 1+ bilat pre tibial Skin: General: Skin is warm and dry. Capillary Refill: Capillary refill takes 2 to 3 seconds. Neurological: General: No focal deficit present. Mental Status: He is alert. Psychiatric: Mood and Affect: Mood normal. Behavior: Behavior normal. Thought Content: Thought content normal. Judgment: Judgment normal. ASSESSMENT AND PLAN: No follow-ups on file. Problem List Items Addressed This Visit HTN (hypertension) - Primary Please check blood pressure daily and record DASH diet Limit caffeine Take medication as directed Contact office if chest pain, pressure, dizziness, shortness of breath, swelling legs Recommend slow position changes Continue current meds: lisinopril, amlodipine, b holli, asa Morbid (severe) obesity due to excess calories (CMS/HCC) Discussed with patient their BMI (actual, verses recommended). We have also discussed lifestyle modifications: attempts to perform physical activity as chronic conditions allow, also to monitor dietary intake: increasing protein/fruits/veggies and lowering carb intake (unless contraindicated). Limit sodas, juices, and sugary drinks. Slow steady weight loss keep it up Frequent PVCs Toprol XL Colon cancer screening Colon cancer screening options were discussed with patient, as well as why colon cancer screening is indicated. Options are Colonoscopy: direct visualization, every 10 years (unless indicated more frequently), risks and benefits were discussed Cologuard: every 3 years, risks and benefits were discussed , contraindications were discussed (family hx of colon cancer, colon polyps) Patient has elected to: cologuard Relevant Orders Cologuard colon cancer screening Associated Problem(s): Morbid (severe) obesity due to excess calories (CMS/HCC) Discussed with patient their BMI (actual, verses recommended). We have also discussed lifestyle modifications: attempts to perform physical activity as chronic conditions allow, also to monitor dietary intake: increasing protein/fruits/veggies and lowering carb intake (unless contraindicated). Limit sodas, juices, and sugary drinks. Slow steady weight loss keep it up Associated Problem(s): Frequent PVCs Toprol XL Associated Problem(s): HTN (hypertension) Please check blood pressure daily and record DASH diet Limit caffeine Take medication as directed Contact office if chest pain, pressure, dizziness, shortness of breath, swelling legs Recommend slow position changes Continue current meds: lisinopril, amlodipine, b holli, asa documented in this encounter [facility] 02-10-2025 Instructions Brenda Mcdowell NP - 02/10/2025 5:30 PM EDT Cut back caffeine Colon cancer screening Keep up on weight loss documented in this encounter [facility] 12-21-2024 History of Presen t illness Narrative Images from the original note were not included. Keyon Jamil is a 59 y.o. male presents with chief complaint of No chief complaint on file. HPI: Here for recheck and to review a holter monitor No other new complaints of Hypertension This is a chronic problem. The current episode started more than 1 year ago. The problem is unchanged. The problem is uncontrolled. Associated symptoms include palpitations (occ). Pertinent negatives include no blurred vision or peripheral edema. There are no associated agents to hypertension. Risk factors for coronary artery disease include male gender and obesity. Past treatments include calcium channel blockers and RICARDO inhibitors. The current treatment provides moderate improvement. There are no compliance problems. There is no history of kidney disease, heart failure or PVD. SUBJECTIVE: MEDICATIONS: Current [...] vision, pain, discharge and visual disturbance. Respiratory: Negative for apnea, chest tightness and wheezing. Cardiovascular: Positive for palpitations (occ). Negative for leg swelling. Gastrointestinal: Negative for [...] kidney stones 10/24/2023 HTN (hypertension) ([facility]) 10/24/2023 Obesity with body mass [...] maternal grandmother. OBJECTIVE: Visit Vitals BP (!) 140/96 (BP Location: Left arm, Patient Position: Sitting, BP Cuff Size: Large adult) Pulse 85 Temp 98.6 F (Temporal) Resp 20 Wt 234 lb 6.4 oz SpO2 96% BMI 41.52 kg/m Smoking Status Never BSA 2.17 m [...] Normal pulses. Heart sounds: Normal heart sounds. No murmur heard. Pulmonary: Effort: Pulmonary effort is normal. Breath sounds: Normal breath sounds. Abdominal: General: Bowel sounds are normal. Palpations: Abdomen is soft. Musculoskeletal: Cervical back: Neck supple. Lymphadenopathy: Cervical: [...] slow position changes Continue current meds: lisinopril, amlodipine, asa Relevant Medications metoprolol succinate XL (Toprol-XL) 25 MG 24 hr tablet Body mass index (BMI) 39.0-39.9, adult Morbid (severe) obesity due to excess calories (CMS/HCC) Discussed with patient their BMI (actual, verses recommended). We have also discussed lifestyle modifications: attempts to perform physical activity as chronic conditions allow, also to monitor dietary intake: increasing protein/fruits/veggies and lowering carb intake (unless contraindicated). Limit sodas, juices, and sugary drinks. . Frequent PVCs Noted on stress test Last appt ordered holter monitor Reviewed holter results Max HR 152, lowest 52, less than 1% vetricular ectopy and SVE beats Will add toprol XL 25mg daily Fu 6-8 weeks Relevant Medications metoprolol succinate XL (Toprol-XL) 25 MG 24 hr tablet Associated Problem(s): Morbid (severe) obesity due to [...] slow position changes Continue current meds: lisinopril, amlodipine, asa Associated Problem(s): Frequent PVCs Noted on stress test Last appt ordered holter monitor Reviewed holter results Max HR 152, lowest 52, less than 1% vetricular ectopy and SVE beats Will add toprol XL 25mg daily Fu 6-8 weeks documented in this encounter [facility] 12-21-2024 Instructions Brenda Mcdowell NP - 12/21/2024 8:40 AM EDT Will add metoprolol XL 25mg daily documented in this encounter [facility] 09-14-2024 History of Presen t illness Narrative [...] compliance problems. There is no history of CAD/LA, heart failure or PVD. SUBJECTIVE: MEDICATIONS: Current [...] kidney stones 10/24/2023 HTN (hypertension) ([facility]) 10/24/2023 Obesity with body mass [...] amlodipine Add asa documented in this encounter [facility] 09-14-2024 Instructions Brenda Mcdowell NP - 09/14/2024 7:00 PM EST Cough: Trial 3 weeks of cetirizine (zyrtec) 10mg daily, if cough not better, then stop this and trial 3 weeks of omeprazole (prilosec) 20mg daily Heart: ECHO (US of heart) will get approved with insurance and do at [facility] Cholesterol pill: atoravastatin ( lipitor) 20mg daily (take in the evening) if severe abd pain, yellowing of the skin muscle pain call me Add baby aspirin 81mg daily documented in this encounter [facility] 08-04-2024 History of Presen t illness Narrative [...] kidney stones 10/24/2023 HTN (hypertension) ([facility]) 10/24/2023 Obesity with body mass [...] List Items Addressed This Visit HTN (hypertension) (CMS/[facility]) Please check blood pressure daily [...] for weight loss. documented in this encounter [facility] 08-04-2024 Instructions Brenda Mcdowell NP - 08/04/2024 [...] fasting labs completed documented in this encounter [facility] 06-11-2024 History of Presen t illness Narrative Associated Problem(s): HTN (hypertension) (CMS/[facility]) Will continue current meds, recommend no missed [...] kidney stones 10/24/2023 HTN (hypertension) ([facility]) 10/24/2023 Obesity with body mass [...] 10 MG tablet documented in this encounter [facility] Healthcare Evaluation note Diagnosis Essential (primary) hypertension (CMS/HCC) Unspecified essential hypertension documented in this encounter [facility] HealthcareEvaluation note* Diagnosis Primary hypertension (CMS/HCC)- Primary Unspecified essential hypertension Obesity with body mass index (BMI) of 30.0 to 39.9 Essential (primary) hypertension (CMS/HCC) Unspecified essential hypertension documented in this encounter [facility] HealthcareEvaluation note* Diagnosis Primary hypertension (CMS/HCC)- [...] ear Impacted cerumen documented in this encounter [facility] note* Diagnosis Primary hypertension (CMS/HCC)- [...] infection, unspecified type documented in this encounter [facility] note* Diagnosis Primary hypertension (CMS/HCC)- [...] ischemic heart disease documented in this encounter [facility]* Diagnosis Primary hypertension (CMS/HCC)- [...] Impacted cerumen of left ear Impacted cerumen Frequent PVCs- Primary Primary hypertension (CMS/HCC) Unspecified essential hypertension Pulmonary artery hypertension (CMS/HCC) Other chronic pulmonary heart diseases Morbid (severe) obesity due to excess calories (CMS/HCC) Body mass index (BMI) 39.0-39.9, adult Family history of coronary artery disease Family history of ischemic heart disease Dyspnea on exertion Other dyspnea and respiratory abnormality Essential (primary) hypertension (CMS/HCC) Unspecified essential hypertension Mixed hyperlipidemia (CMS/HCC) Mixed hyperlipidemia Essential (primary) hypertension (CMS/HCC) Unspecified essential hypertension Mixed hyperlipidemia (CMS/HCC) Mixed hyperlipidemia documented in this encounter [facility]* Diagnosis Primary hypertension (CMS/HCC)- [...] Impacted cerumen of left ear Impacted cerumen Frequent PVCs- Primary Primary hypertension (CMS/HCC) Unspecified essential hypertension Pulmonary artery hypertension (CMS/HCC) Other chronic pulmonary heart diseases Morbid (severe) obesity due to excess calories (CMS/HCC) Body mass index (BMI) 39.0-39.9, adult Family history of coronary artery disease Family history of ischemic heart disease Dyspnea on exertion Other dyspnea and respiratory abnormality Essential (primary) hypertension (CMS/HCC) Unspecified essential hypertension Mixed hyperlipidemia (CMS/HCC) Mixed hyperlipidemia Primary hypertension (CMS/HCC)- Primary Unspecified essential hypertension Frequent PVCs Morbid (severe) obesity due to excess calories (CMS/HCC) Body mass index (BMI) 39.0-39.9, adult [facility] Diagnosis Primary hypertension- Primary Unspecified essential hypertension Obesity with body mass index (BMI) of 30.0 to 39.9 Primary hypertension- Primary Unspecified essential hypertension Obesity with body mass index (BMI) of 30.0 to 39.9 Essential (primary) hypertension- Primary Unspecified essential hypertension Morbid (severe) obesity due to excess calories (CMS/HCC) Body mass index (BMI) 39.0-39.9, adult Primary hypertension Unspecified essential hypertension Pain, dental Obesity with body mass index (BMI) of 30.0 to 39.9 Onychomycosis Dermatophytosis of nail Primary hypertension- Primary Unspecified essential hypertension Obesity with body mass index (BMI) of 30.0 to 39.9 Essential (primary) hypertension Unspecified essential hypertension Upper respiratory tract infection, unspecified type- Primary Primary hypertension Unspecified essential hypertension Obesity with body mass index (BMI) of 30.0 to 39.9 Wellness examination Prostate cancer screening Special screening for malignant neoplasm of prostate Impacted cerumen of left ear Impacted cerumen Primary hypertension- Primary Unspecified essential hypertension Morbid (severe) obesity due to excess calories (CMS/HCC) Mixed hyperlipidemia Mixed hyperlipidemia Body mass index (BMI) 39.0-39.9, adult Essential (primary) hypertension Unspecified essential hypertension Subacute cough Dyspnea on exertion Other dyspnea and respiratory abnormality Family history of coronary artery disease Family history of ischemic heart disease Impacted cerumen of left ear Impacted cerumen Frequent PVCs- Primary Primary hypertension Unspecified essential hypertension Pulmonary artery hypertension (HCC) Other chronic pulmonary heart diseases Morbid (severe) obesity due to excess calories (CMS/HCC) Body mass index (BMI) 39.0-39.9, adult Family history of coronary artery disease Family history of ischemic heart disease Dyspnea on exertion Other dyspnea and respiratory abnormality Essential (primary) hypertension Unspecified essential hypertension Mixed hyperlipidemia Mixed hyperlipidemia Primary hypertension- Primary Unspecified essential hypertension Frequent PVCs Morbid (severe) obesity due to excess calories (CMS/HCC) Body mass index (BMI) 39.0-39.9, adult Primary hypertension- Primary Unspecified essential hypertension Frequent PVCs Morbid (severe) obesity due to excess calories (CMS/HCC) Colon cancer screening Special screening for malignant neoplasms, colon [facility] Diagnosis Primary hypertension- Primary Unspecified essential hypertension Obesity with body mass index (BMI) of 30.0 to 39.9 Primary hypertension- Primary Unspecified essential hypertension Obesity with body mass index (BMI) of 30.0 to 39.9 Essential (primary) hypertension- Primary Unspecified essential hypertension Morbid (severe) obesity due to excess calories (CMS-HCC) Body mass index (BMI) 39.0-39.9, adult Primary hypertension Unspecified essential hypertension Pain, dental Obesity with body mass index (BMI) of 30.0 to 39.9 Onychomycosis Dermatophytosis of nail Primary hypertension- Primary Unspecified essential hypertension Obesity with body mass index (BMI) of 30.0 to 39.9 Essential (primary) hypertension Unspecified essential hypertension Upper respiratory tract infection, unspecified type- Primary Primary hypertension Unspecified essential hypertension Obesity with body mass index (BMI) of 30.0 to 39.9 Wellness examination Prostate cancer screening Special screening for malignant neoplasm of prostate Impacted cerumen of left ear Impacted cerumen Primary hypertension- Primary Unspecified essential hypertension Morbid (severe) obesity due to excess calories (CMS-HCC) Mixed hyperlipidemia Mixed hyperlipidemia Body mass index (BMI) 39.0-39.9, adult Essential (primary) hypertension Unspecified essential hypertension Subacute cough Dyspnea on exertion Other dyspnea and respiratory abnormality Family history of coronary artery disease Family history of ischemic heart disease Impacted cerumen of left ear Impacted cerumen Frequent PVCs- Primary Primary hypertension Unspecified essential hypertension Pulmonary artery hypertension (HCC) Other chronic pulmonary heart diseases Morbid (severe) obesity due to excess calories (CMS-HCC) Body mass index (BMI) 39.0-39.9, adult Family history of coronary artery disease Family history of ischemic heart disease Dyspnea on exertion Other dyspnea and respiratory abnormality Essential (primary) hypertension Unspecified essential hypertension Mixed hyperlipidemia Mixed hyperlipidemia Primary hypertension- Primary Unspecified essential hypertension Frequent PVCs Morbid (severe) obesity due to excess calories (CMS-HCC) Body mass index (BMI) 39.0-39.9, adult Primary hypertension- Primary Unspecified essential hypertension Frequent PVCs Morbid (severe) obesity due to excess calories (CMS-HCC) Colon cancer screening Special screening for malignant neoplasms, colon Primary hypertension Unspecified essential hypertension Frequent PVCs Essential (primary) hypertension Unspecified essential hypertension documented in this encounter [facility] Summary Purpose Family History No Family History Records FoundNo Family History Records Found Advance Directives No Advanced Directives Records FoundNo Advanced Directives Records Found Additional Source Comments (unrecognized sect ion and content) No Status Records FoundNo Status Records Found INFORMATION SOURCE (unrecogn ized section and content) DATE CREATED AUTHOR 08/06/2023 [facility] DATE CREATED AUTHOR AUTHOR'S ORGANIZ ATION 02/13/2025 [facility] EPIC Reason for Visit (unrecogniz ed section and content) Reason Comments Med Refill Reason Comments Cough Reason Comments Hypertension Reason Onset Date Comments Med Refill 12/15/2024 Reason Comments Hypertension Care Teams (unrecognized sec tion and content) Translational Specialist Relationship Specialty Start Date End Date Chava Horne MD [address] [place] [phone] PCP - General Family Medicine 10/21/23 Brenda Mcdowell NP [address] [place] [phone] Nurse Practitioner Family Medicine 09/02/22 Translational Specialist Relationship Specialty Start Date End Date Chava Horne MD [address] [place] [address] PCP - General Family Medicine 10/21/23 Brenda Mcdowell NP [address] [place] [address] Nurse Practitioner Family Medicine 09/02/22 Translational Specialist Relationship Specialty Start Date End Date Chava Horne MD [address] [place] [phone] PCP - General Family Medicine 10/21/23 Brenda Mcdowell NP [address] [place] [address] Nurse Practitioner Family Medicine 09/02/22 Translational Specialist Relationship Specialty Start Date End Date Chava Horne MD [address] [place] [phone] PCP - General Family Medicine 10/21/23 Brenda Mcdowell NP [address] [place] [address] Nurse Practitioner Family Medicine 09/02/22 Translational Specialist Relationship Specialty Start Date End Date Chava Horne MD [address] [place] [phone] PCP - General Family Medicine 10/21/23 Brenda Mcdowell NP [address] [place] [phone] Nurse Practitioner Family Medicine 09/02/22 Translational Specialist Relationship Specialty Start Date End Date Chava Horne MD [address] [place] [address] PCP - General Family Medicine 10/21/23 Brenda Mcdowell NP [address] [place] [address] Nurse Practitioner Family Medicine 09/02/22 Translational Specialist Relationship Specialty Start Date End Date Chava Horne MD [address] [place] [address] PCP - General Family Medicine 10/21/23 Brenda Mcdowell NP [address] [place] [address] Nurse Practitioner Family Medicine 09/02/22 Translational Specialist Relationship Specialty Start Date End Date Chava Horne MD [address] [place] [phone] PCP - General Family Medicine 10/21/23 Brenda Mcdowell NP [address] [place] [address] Nurse Practitioner Family Medicine 09/02/22 Translational Specialist Relationship Specialty Start Date End Date Chava Horne MD [address] [place] [address] PCP - General Family Medicine 10/21/23 Brenda Mcdowell NP [address] [place] [address] Nurse Practitioner Family Medicine 09/02/22 Translational Specialist Relationship Specialty Start Date End Date Chava Horne MD [address] [place] [phone] PCP - General Family Medicine 10/21/23 Brenda Mcdowell NP [address] [place] [address] Nurse Practitioner Family Medicine 09/02/22 Translational Specialist Relationship Specialty Start Date End Date Chava Horne MD [address] [place] [phone] PCP - General Family Medicine 10/21/23 Brenda Mcdowell NP [address] [place] [address] Nurse Practitioner Family Medicine 09/02/22 Translational Specialist Relationship Specialty Start Date End Date Chava Horne MD [address] [place] [address] PCP - General Family Medicine 10/21/23 Brenda Mcdowell NP [address] [place] [address] Nurse Practitioner Family Medicine 09/02/22 Translational Specialist Relationship Specialty Start Date End Date Chava Horne MD [address] [place] [phone] PCP - General Family Medicine 10/21/23 Brenda Mcdowell NP [address] [place] [address] Nurse Practitioner Family Medicine 09/02/22 Translational Specialist Relationship Specialty Start Date End Date Chava Horne MD [address] [place] [phone] PCP - General Family Medicine 10/21/23 Brenda Mcdowell NP [address] [place] [address] Nurse Practitioner Family Medicine 09/02/22 Translational Specialist Relationship Specialty Start Date End Date Chava Horne MD [address] [place] [phone] PCP - General Family Medicine 10/21/23 Brenda Mcdowell NP [address] [place] [address] Nurse Practitioner Family Medicine 09/02/22 Translational Specialist Relationship Specialty Start Date End Date Chava Horne MD [address] [place] [address] PCP - General Family Medicine 10/21/23 Brenda Mcdowell NP [address] [place] [address] Nurse Practitioner Family Medicine 09/02/22 Translational Specialist Relationship Specialty Start Date End Date Chava Horne MD [address] [place] [phone] PCP - General Family [facility] 10/21/23 Brenda Mcdowell NP [address] [place] [phone] Nurse Practitioner [facility] 09/02/22 Translational Specialist Relationship Specialty Start Date End Date Chava Horne MD [address] [place] [phone] PCP - General [facility] 10/21/23 Brenda Mcdowell NP [address] [place] [phone] Nurse Practitioner Family [facility] 09/02/22 FOR RECORDS PERTAINING TO PATIENTS [...] BE BASED ON THE PRIMARY CLINICAL RECORDS. [facility] [employer] [facility]. provides no warranty or guarantee of the accuracy or completeness of information in this document.
[2025-04-11 22:40] VITALS: BP 141/86; TEMP 36.8; O2SAT 98; BMI 41.3
--- NOTE | 2025-04-12 02:33 | ED_ITS ---
HPI HPI - General Adult General Chief complaint: Skin/Abscess/Foreign Body Stated complaint: INJURY L THUMB Time Seen by Provider: 04/11/25 22:25 Mode of arrival: walk-in History of Present Illness HPI narrative: Patient is a 59-year-old male presenting to the emergency department for concerns of a left thumb injury. Patient was using a circular saw at home when he sliced the top of his thumb. He had immediate pain and nonpulsatile b leeding. He wrapped it in a pressure dressing and presented to the ED. He denies any other injuries. He is not on anticoagulation. Related Data Home Medications ?Medication ?Instructions ?Recorded ?Confirmed naproxen sodium 220 mg capsule 220 mg PO Q12H 04/22/23 04/22/23 (Aleve) Allergies Allergy/AdvReac Type Severity Reaction Status Date / Time No Known Drug Allergies Allergy Verified 04/11/25 22:48 Opioid HPI Opioid Management Most Recent Opioid Data: Last Pain Scale 7 04/11/25, 22:40 Review of Systems ROS Status of ROS 10 or more systems reviewed and unremark able except as noted in history and below PFSH PFSH Family History (Updated 04/22/23 @ 12:34 by Ewa Thacker) Other Family history of CHF (congestive heart failure) Family history of COPD (chronic obstructive pulmonary disease) Family history of diabetes mellitus Family history of hypertension Social History (Updated 04/22/23 @ 12:34 by Ewa Thacker) Within the past year, how often did you have a drink containing alcohol: never Score interpretation: A score less than 4 is consistent with normal alcohol consumption. 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 Highest level of school completed/degree received: high school graduate Little interest or pleasure in doing things: not at all Feeling down, depressed, or hopeless: not at all Exam Narrative Exam Narrative: CONSTITUTIONAL: Well-appearing, answering questions and following commands appropriately SKIN: Was warm and dry. EYES: Sclerae white. EARS, NOSE, THROAT: Moist oral mucosa. RESPIRATORY: Nonlabored respirations. CARDIOVASCULAR: Capillary refill less than 2 seconds in the left thumb. Radial pulse 2+ on the left. GASTROINTESTINAL: Abdomen is nondistended. MUSCULOSKELETAL: There is abrasion of the skin at the tip of the left thumb. No active bleeding. Full range of motion with flexion/extension/opposition of the left thumb. Full range of motion at the IP joint. No bony deformities or tenderness. Thumb is warm and well-perfused. NEUROLOGIC: Patient is awake and alert. Intact sensation to light touch and good strength of the left thumb Constitutional Vital Signs, click to edit/add: Last Vital Signs Temp 98.2 F 04/11/25 22:40 Resp 16 04/11/25 22:40 BP 141/86 04/11/25 22:40 Pulse Ox 98 04/11/25 22:40 O2 Del Method Room Air 04/11/25 22:40 Course Vital Signs Vital signs: Vital Signs Temperature 98.2 F 04/11/25 22:40 Respiratory Rate 16 04/11/25 22:40 Blood Pressure 141/86 04/11/25 22:40 Pulse Oximetry 98 04/11/25 22:40 Oxygen Delivery Method Room Air 04/11/25 22:40 Temperature 98.2 F 04/11/25 22:40 Respiratory Rate 16 04/11/25 22:40 Blood Pressure 141/86 04/11/25 22:40 Pulse Oximetry 98 04/11/25 22:40 Oxygen Delivery Method Room Air 04/11/25 22:40 Medical Decision Making MDM Narrative Medical decision making narrative: Patient is a 59-year-old male presenting to the emergency department with left thumb injury after it was cut by a circular saw earlier [facility]. Vital signs on arrival are within normal limits. He is afebrile and hemodynamically stable. Examination was notable for a braised skin over the tip of the left thumb. There is no laceration that would be amenable to repair. The thumb is neurovascularly intact without evidence of ligamentous injury. There is no active bleeding. Differential diagnosis includes soft tissue abrasion, possible underlying fracture. There is no exposed bone or evidence of traumatic amputation. X-rays were obtained. X-rays of the left thumb independently reviewed/interpreted by myself chery castillotrated no acute osseous abnormalities or evidence of tuft fracture. I do believe the patient is stable for discharge at this time. They were instructed to follow up with their PCP as needed. Return precautions were given including any new or worsening symptoms. Patient understands and agrees to the plan. Imaging Data L thumb x-ray: Attestation: I personally reviewed and interpreted this imaging study as follows: Discharge Plan Discharge Chief Complaint: Skin/Abscess/Foreign Body Clinical Impression: Abrasion Patient Disposition: Home, Self-Care Time of Disposition Decision: 23:22 Condition: Good Mode of Transportation: Private Vehicle Prescriptions / Home Meds: No Action naproxen sodium [Aleve] 220 mg capsule 220 mg PO Q12H Print Language: Sinhala Instructions: Bone Bruise (ED) Referrals: Brenda Mcdowell ELEVATOR ERECTOR [Primary Care Provider, Family Practice] - 1 week Discharge Date/Time: 04/11/25 23:37
== END 2025-04-11 23:37 | disposition home or self-care (01) ==
PROVIDERS: Emergency Provider Student in an Organized Health Care Education/Training Program; PCP Nurse Practitioner
DX: S60.312A Abrasion of left thumb, initial encounter (principal); W31.2XXA Contact with powered woodworking and forming machines, initial encounter
CPT/HCPCS: 73140; 99283